=== PATIENT | male | born 2000 | race Caucasian/White ===

== ENCOUNTER 2019-11-28 19:41 | Inpatient (IN) | payer SELFPAY ==
[2019-11-28 20:11] VITALS: BP 149/81; PULSE 103; RESP 20; TEMP 38.9; O2SAT 96; BMI 45.7
[2019-11-28 21:48] LABS: Basophils # 0.1 10^3/uL (0.0-0.1); Basophils % 0.3 %; Eosinophils # 0.1 10^3/uL (0.0-0.8); Eosinophils % 0.6 %; Hematocrit 40.9 % (42.0-52.0); Lymphocytes # 2.9 10^3/uL (1.5-6.5); Mean Corpuscular HGB Conc 31.8 g/dL (30.0-36.0); Mean Corpuscular Hemoglobin 25.7 pg (28.0-34.0); Mean Platelet Volume 11.4 fL (7.4-10.4); Monocytes # 1.4 10^3/uL (0.2-0.9); Monocytes % 7.4 %; Neutrophils # 14.4 10^3/uL (1.8-8.0); Neutrophils % 75.4 %; Nucleated Red Blood Cells % 0 %; Platelet Count 194 10^3/cmm (130-400); Red Blood Count 5.05 10^6/uL (4.1-5.3); Red Cell Distribution Width 14.7 % (12.1-15.1); White Blood Count 19.1 10^3/uL (4.5-13.0)
[2019-11-28 22:03] LABS: Lactic Acid level (Lactate) 1.6 mmol/L (0.5-2.2)
[2019-11-28 22:04] LABS: Alanine Aminotransferase 21 U/L (0-41); Albumin Level 3.7 g/dL (3.5-5.2); Alkaline Phosphatase 101 IU/L (40-130); Anion Gap 19.1 (5-19); Aspartate Amino Transferase 16 U/L (0-40); Blood Urea Nitrogen 9 mg/dL (6-20); Calcium 10.1 mg/dL (8.5-10.5); Carbon Dioxide 25 mmol/L (22-29); Chloride 88 mmol/L (98-107); Globulin 5.5 g/dL (1.3-4.6); Glomerular Filtration Rate 143.8 mL/min (90-130); Glucose 342 mg/dL (65-115); Potassium 4.1 mmol/L (3.5-5.1); Sodium 128 mmol/L (136-145); Total Bilirubin 1.4 mg/dL (0.15-1.2); Total Protein 9.2 g/dL (6.6-8.7)
--- NOTE | 2019-11-28 23:39 | ED_ITS ---
Entered by Whitney Lee, acting as scribe for Dante Rasheed MD Nov 28, 2019 19:41 HPI - General Adult General: Chief complaint: General Medical Stated complaint: neck pain Time Seen by Provider: 11/28/19 23:38 Source: patient Mode of arrival: ambulatory Limitations: no limitations History of Present Illness: HPI narrative: Family states that pt has been ge tting abscesses on the back of his neck. Pt also has had a fever. Pt has abscesses on his neck, bottom and between his groin area. He states the one on his neck is painful and is sharp in nature. He states the pain is a 9 out of 10. He is febrile here of 102. He has no known medical issues. complaint: fever Onset (ago): day(s) Location: neck and buttocks Severity: moderate Quality: sharp Associated symptoms: Deny chest pain, dyspnea, headache(s), nausea, rash or vomiting Review of Systems Const: Reports: fever and chills; Denies: body aches or change in appetite Eyes: Denies: blurry vision or eye discomfort ENMT: Denies: throat pain or dental pain Card: Denies: chest pain Resp: Denies: shortness of breath GI: Denies: abdominal pain, nausea, vomiting or diarrhea : Denies: painful urination Musc: Reports: neck pain; Denies: back pain Skin/Breast: Reports: sores; Denies: rash Neuro: Denies: headache Psych: Denies: depression Isidro/Lymph: Denies: easy bruising All/Imm: Denies: hives PFSH ED PFSH: Statuses (acute, chronic, etc) shown below reflect problem list status as previously entered and may not be historically accurate Social History Smoking and tobacco status: never smoked Physical Exam Const: COMMON NORMALS: no apparent distress, oriented x3 and healthy appearing HENMT: COMMON NORMALS: normocephalic and head/scalp atraumatic HEAD & SCALP: normocephalic and atraumatic Eye: COMMON NORMALS: PERRL and EOMs intact bilaterally PUPIL: Yes PERRL Neck/C-Spine: COMMON NORMALS: full ROM and supple Chest: COMMONS NORMALS: inspection of chest normal and palpation of chest normal Resp: COMMON NORMALS: normal respiratory effort, no retractions, no use of accessory muscles and clear to auscultation bilaterally AUSCULTATION: clear to auscultation bilaterally Cardio: COMMON NORMALS: regular rate, regular rhythm and no murmurs RATE: regular rate RHYTHM: regular rhythm GI: COMMON NORMALS: normal to inspection, nondistended, normoactive bowel soun ds, soft to palpation, non-tender and no masses PALPATION: Yes soft Extremity: COMMON NORMALS: normal to inspection and full ROM Neuro: COMMON NORMALS: oriented x3, moves all extremities and no focal motor deficits Psych: COMMON NORMALS: mental status grossly normal, thought process normal and cooperative THOUGHT PROCESS: normal thought process Skin: COMMON NORMALS: no rashes or lesions noted and no wounds GENERAL SKIN EXAM: no rashes or lesions noted OTHER: no abscesses to groin or perineum. 2cm abscess to right buttocks. 4cm abscess to back of neck with erythema Procedures Abscess I/D Site: neck and other (right buttocks) Local Anesthetic: lidocaine 2% Amount of anesthesia used (mL): 14 Technique: incised with #11 blade Packing used?: iodoform Complications: other (large amount of purulent drainage) Course Vital Signs: Vital signs: Vital Signs Temperature 102.0 F H 11/28/19 20:11 Pulse Rate 103 H 11/28/19 20:11 Respiratory Rate 20 H 11/28/19 20:11 Blood Pressure 149/81 11/28/19 20:11 Pulse Oximetry 96 11/28/19 20:11 MDM - General Adult MDM Narrative: Medical decision making narrative: Patient presents with abscess to the back of his neck along with his right buttocks. Abscess to his neck is quite large and a large amount of purulent drainage. Patient given IV vancomycin here. Patient does have an elevated white count. Patient is hyperglycemic and possibly could be a new onset diabetic. Patient has no follow-up currently and I spoke to hospitalist Dr. Abdi and will admit for observation. Lab Data: Labs: Lab Results 11/28/19 11/28/19 11/28/19 Range/Units 21:30 21:30 21:30 WBC 19.1 H (4.5-13.0) 10^3/ uL RBC 5.05 (4.1-5.3) 10^6/u L Hgb 13.0 (11.7-16.6) g/dL Hct 40.9 L (42.0-52.0) % MCV 81.0 (80-94) fL MCH 25.7 L (28.0-34.0) pg MCHC 31.8 (30.0-36.0) g/dL RDW 14.7 (12.1-15.1) % Plt Count 194 (130-400) 10^3/c mm MPV 11.4 H (7.4-10.4) fL Neut % (Auto) 75.4 % Lymph % (Auto) 15.0 % Dolores % (Auto) 7.4 % Eos % (Auto) 0.6 % Baso % (Auto) 0.3 % Neut # (Auto) 14.4 H (1.8-8.0) 10^3/u L Lymph # (Auto) 2.9 (1.5-6.5) 10^3/u L Dolores # (Auto) 1.4 H (0.2-0.9) 10^3/u L Eos # (Auto) 0.1 (0.0-0.8) 10^3/u L Baso # (Auto) 0.1 (0.0-0.1) 10^3/u L Nucleated RBC % (a uto) 0 % Nucleated RBCs # 0.0 /100WBC Sodium 128 L (136-145) mmol/L Potassium 4.1 (3.5-5.1) mmol/L Chloride 88 L (98-107) mmol/L Carbon Dioxide 25 (22-29) mmol/L Anion Gap 19.1 H (5-19) BUN 9 (6-20) mg/dL Creatinine 0.7 (0.7-1.2) mg/dL GFR Calculation 143.8 H (90-130) mL/min Glucose 342 H (65-115) mg/dL Lactic Acid (Sepsi s) 1.6 (0.5-2.2) mmol/L Calcium 10.1 (8.5-10.5) mg/dL Total Bilirubin 1.4 H (0.15-1.2) mg/dL AST 16 (0-40) U/L ALT 21 (0-41) U/L Alkaline Phosphata se 101 (40-130) IU/L Total Protein 9.2 H (6.6-8.7) g/dL Albumin 3.7 (3.5-5.2) g/dL Globulin 5.5 H (1.3-4.6) g/dL Discharge Plan Discharge Patient Disposition: Placed in Observation Clinical Impression: Abscess, Hyperglycemia Condition: Stable Coding Level of Care Code ED Underliner for Dilma Jaramillo The documentation recorded by the Jesus greenwood Stephanie Lyn, accurately reflects the service I personally performed and the decisions made by Kathya wyatt Korby, MD Nov 28, 2019 19:41
[2019-11-29] VITALS (8 sets, daily range): BP systolic 112–139; BP diastolic 53–78; PULSE 91–124; RESP 18–22; TEMP 36.6–39.5; O2SAT 92–99
[2019-11-29] MEDS: LORazepam 2 mg/mL INJ 1 mL 1 MG IVP (00:07)
[2019-11-29] MEDS: morphine 4 mg/mL SDV 1 mL IVP ×2 (00:08→14:00)
[2019-11-29] MEDS: sodium chloride 0.9% 1,000 ML 999 ML IV (00:09)
[2019-11-29] MEDS: HYDROmorphone 1 mg/mL INJ 1 mL IVP (00:46)
--- NOTE | 2019-11-29 02:18 | PC.NURSE ---
Patient to be admitted obs to room 277-1, report called to Gabriella GONZALEZ.
--- NOTE | 2019-11-29 03:44 | PM.HP ---
Providers/Chief Complaint Admitting Physician: Mary Anne Newberry MD Primary Care Provider: No primary care provider Chief Complaint: neck pain History of Present Illness Oliver Humphreys is a 19 year old male who presented to the emergency room with chief complaint of neck pain. For several days he said pain in his neck and on his backside. He had multiple sores that he popped . He tried to pop them on his neck and his buttock recently but continued to have problems with recurrent fluid accumulation and increasing pain. He is not slept for several days. He was found to have evidence of abscess formation in both places in the emergency room. These were incised and drained in the ED. Packing was placed. He received a dose of vancomycin. As part of the work-up he was identified as having a blood sugar of 342. He has no personal history of diabetes but he does have a family history with his mother having diabetes. He reports increasing thirst, increasing urine output and does actually describe some weight loss. Reports having previously weighed 380 something and was in the 320s here. He has no primary care provider with whom he can follow-up. With multifocal sites of abscess formation and the new onset diabetes he is being admitted for further care and to ensure that we can get arrangements for outpatient care. Review of Systems Const: Reports: change in weight, malaise and other (Not sleeping well); Denies: fever Eyes: Denies: change in vision or blurry vision ENMT: Denies: throat pain Card: Denies: chest pain or palpitations Resp: Denies: shortness of breath, productive cough or non-productive cough GI: Reports: diarrhea (Recently which he attributed to specific food); Denies: abdominal pain, nausea or vomiting : Reports: urinary frequency Musc: Reports: neck pain (Related to sore on his neck) Skin/Breast: Reports: sores (Multiple, including buttock, neck, arms and back) Neuro: Denies: headache, numbness in extremities, weakness in extremities or confusion Psych: Denies: anxiety or depression Endo: Reports: excessive urination and excessive thirst Isidro/Lymph: Denies: easy bruising or easy bleeding Medications/Allergies Home Medications Medication Instructions Recorded Confirmed Last Taken Type No Known Home Medications 11/28/19 11/28/19 Unknown History Allergies Allergy/AdvReac Type Severity Reaction Status Date / Time No Known Allergies Allergy Verified 11/28/19 20:10 PFSH Acute PFSH: Statuses (acute, chronic, etc) shown below reflect problem list status as previously entered and may not be historically accurate Medical History (Updated 11/29/19 @ 04:29 by Mary Anne Newberry MD) Obesity Surgical History (Updated 11/29/19 @ 03:46 by Mary Anne Newberry MD) History of tonsillectomy Family History (Updated 11/29/19 @ 03:45 by Mary Anne Newberry MD) Mother Diabetes Social History (Updated 11/29/19 @ 03:47 by Mary Anne Newberry MD) Smoking and tobacco status: former smoker Alcohol intake: never Substance/Drug Use: never Household members: family Highest education level completed: 11th Grade Vitals/I&O/Wt Last Vital Signs Temp 101.2 F H 11/29/19 02:44 Pulse 112 H 11/29/19 02:44 Resp 20 H 11/29/19 02:44 BP 139/78 11/29/19 02:44 Pulse Ox 95 11/29/19 02:44 Weight last 48 hrs Weight 148.778 kg Physical Exam Const: COMMON NORMALS: oriented x3 NUTRITIONAL APPEARANCE: obese morbidly obese HENMT: COMMON NORMALS: normocephalic MOUTH: other (Dry mucous membranes) Eye: COMMON NORMALS: PERRL and EOMs intact bilaterally Neck/C-Spine: OTHER: Neck range of motion is limited by pain from area where abscess was drained. This is located along the cervical spine in the middle of the neck. Packing is in place. There does not appear to be any extension of erythema from this area. He has somewhat of a webbed neck. Resp: COMMON NORMALS: normal respiratory effort and clear to auscultation bilaterally Cardio: COMMON NORMALS: regular rate, regular rhythm and no murmurs GI: COMMON NORMALS: normal to inspection, nondistended, normoactive bowel sounds, soft to palpation and non-tender : COMMON NORMALS: Yes external exam normal Back/Pelvis: COMMON NORMALS: no CVA tenderness Extremity: COMMON NORMALS: no clubbing, cyanosis or edema Neuro: COMMON NORMALS: moves all extremities and no sensory deficits noted Psych: COMMON NORMALS: cooperative and affect normal Skin: NARRATIVE SKIN EXAM: Packed wound on the back of the neck. Patient has dressing in place over similar appearing wound to the left buttock. There are a few other sores in different stages of healing on the back. Data : 11/28/19 21:30 11/28/19 21:30 Micro: Microbiology 11/28/19 21:30 Blood Culture - Preliminary Blood SPECIMEN COLLECTED 11/28/19 21:30 Blood Culture - Preliminary Blood SPECIMEN COLLECTED Laboratory Tests 11/28/19 21:30 Neut % (Auto) 75.4 Lymph % (Auto) 15.0 Liver Function 11/28/19 Range/Units 21:30 Total Bilirubin 1.4 H (0.15-1.2) mg/dL AST 16 (0-40) U/L ALT 21 (0-41) U/L Alkaline Phosphatase 101 (40-130) IU/L Albumin 3.7 (3.5-5.2) g/dL A&P Assessment and plan (1) New onset type 2 diabetes mellitus: As evidenced by blood sugar greater than 300 and multiple sites of skin infection. I reviewed with patient the importance of starting medication and following medication regimen, learning about consistent carbohydrate diet, exercise and trying to lose some weight as well as the potential risk of not adequately treating diabetes including abnormalities of vision, feeling in the hands and feet, kidney damage, heart disease, strokes, among other medical problems. His mother has diabetes so he is familiar a little bit with it. Status: Acute Code(s): E11.9 - Type 2 diabetes mellitus without complications (2) Furuncle of neck: Status post incision and drainage in the emergency room on 11/29/2019. Currently with iodoform gauze packing. Received vancomycin in the emergency room Status: Acute Code(s): L02.12 - Furuncle of neck (3) Carbuncle and furuncle of buttock: Status post incision and drainage in the emergency room on 11/29/2019. Currently with iodoform gauze packing. Received vancomycin in the emergency room Status: Acute Code(s): L02.33 - Carbuncle of buttock (4) Obesity: Now with new diagnosis of diabetes Status: Acute Qualifiers: Obesity type: due to excess calories Obesity classification: adult class 3 (BMI >= 40) Serious obesity comorbidity presence: with serious comorbidity Body mass index: BMI 45.0-49.9 Qualified Code(s): E66.01 - Morbid (severe) obesity due to excess calories; Z68.42 - Body mass index (BMI) 45.0-49.9, adult Code(s): E66.9 - Obesity, unspecified Additional A&P Information Other diagnoses: Pseudohyponatremia related to hyperglycemia Slight elevation in bilirubin Observation admission for now IV fluids Low-dose insulin Initiate oral metformin Diabetes education Check hemoglobin A1c, lipid panel Consider initiation of low-dose MADAY inhibitor Case management to assist with arranging outpatient follow-up, financially this will be a challenge for him Start oral Bactrim for skin wounds, received a dose of vancomycin in the emergency room Will need clear instructions for wound care management at the time of discharge, reviewed basic wound care with him and that sometimes popping wounds can lead to them becoming worse so he should try to minimize that in the future Transition to oral pain medications Supportive care otherwise Plans discussed with patient and he was given an opportunity to ask questions Full code Attestations Medical Necessity Statement*: Currently anticipated stay less than 2 midnights in a patient with new onset diabetes and 2 areas of abscess formation that required drainage. He needs to be started on some medications, have outpatient follow-up arranged as well as ensure that he is able to get oral medications. Need to monitor areas of abscess formation for ongoing problems. Coding Level of Care Code Acute Nurse Practitioner Hospitalist for [facility] Diagnoses New onset type 2 diabetes mellitus E11.9 Furuncle of neck L02.12 Carbuncle and furuncle of buttock L02.33 Obesity E66.01; Z68.42 Obesity type: due to excess calories Obesity classification: adult class 3 (BMI >= 40) Serious obesity comorbidity presence: with serious comorbidity Body mass index: BMI 45.0-49.9
[2019-11-29 07:09] LABS: Glucose Point of Care 346 mg/dL (70-110)
[2019-11-29 07:44] LABS: Estmated Average Glucose 312; Hemoglobin A1C 12.5 % (4.0-6.0)
[2019-11-29] MEDS: HYDROcodone-acetaminophen 5-325 mg Tablet 1 TAB PO ×3 (07:46→20:32)
[2019-11-29] MEDS: metformin 500 mg Tablet PO (07:47)
[2019-11-29] MEDS: sulfamethoxazole-trimeth DS 160-800 mg Tablet 1 TAB PO (09:06)
[2019-11-29] MEDS: docusate sodium 100 mg Capsule PO ×2 (09:06→18:51)
--- NOTE | 2019-11-29 11:15 | CT_ITS ---
WS: [id number] CT scan of the neck. Additional two-dimensional coronal and sagittal reconstruction was performed. 08/2020 Clinical Data: abscess, sepsis Comparison: None. DLP: 665.[address] scans at [facility] use at least one of these dose optimization techniques: automat ed exposure control; mA and/or kV adjustment per patient size (includes targeted exams where dose is matched to clinical indication); or iterative reconstruction. Findings: There is edema in the posterior neck with several areas of air. This could represent a beginning absc ess. The posterior neck muscles show air in the midline.. No lymphadenopathy is noted. The salivary glands are unremarkable. There is no prevertebral soft tiss ue swelling. The larynx is symmetric. The thyroid gland shows normal enhancement. The floor of the mo uth and parapharyngeal spaces are normal. The oral cavity is unremarkable. The carotid arteries bifurcate normally. The cervical spine is unremarkable. The lung apices show no abnormalities. The portions of the intracranial circulation which are seen demonstrate no abnormaliti es. No erosion of the skull or skull base is seen. CT/CT neck w con* [id number] Impression: 1. Extensive cystic edema in the posterior aspect of the neck along with small areas of air which could represent a beginning abscess. 2. The posterior neck muscles show air in the midline and they may be involved. .
--- NOTE | 2019-11-29 11:15 | CT_ITS ---
WS: [id number] CT scan of the pelvis. Additional two-dimensional coronal and sagittal reconstruction was performed. MIP images were also performed. 11/29/2019 Clinical Data: gluteal abscess, sepsis Comparison: None. DLP: 1257.[address] scans at [facility] use at least one of these dose optimization techniques: automat ed exposure control; mA and/or kV adjustment per patient size (includes targeted exams where dose is matched to clinical indication); or iterative reconstruction. Findings: The soft tissue in the pelvis does not show any abscess. The bladder and prostate are unremarkable. T he sigmoid colon and rectum are normal. A small portion of the gallbladder is seen and there may be g allstones. The sacrum, lower lumbar spine, pelvis and hips are unremarkable. There is increased signa l in the left buttock but only fluid is noted. No abscess is seen. CT/CT pelvis w con* [id number] Impression: 1. Increased signal in left buttock at site of gluteal inflammatory change. 2. Negative for soft tissue abscess. 3. Possible gallstones.
--- NOTE | 2019-11-29 12:00 | P.PN_ITS ---
Subjective Subjective: Interval history: He is asleep in bed during my visit. He is somnolent on waking up. It takes him a while to come to. His mother is at bedside. He is still in pain at the site of neck and buttock abscesses. Generally not feeling well. Vitals/I&O/Wt Last Vital Signs Temp 97.8 F 11/29/19 11:26 Pulse 103 H 11/29/19 11:26 Resp 20 H 11/29/19 11:26 BP 131/77 11/29/19 11:26 Pulse Ox 96 11/29/19 11:26 11/28/19 11/29/19 11/29/19 22:59 06:59 14:59 Intake Total 100 / 100 240 / 240 Balance 100 / 100 240 / 240 Weight last 48 hrs Weight 148.778 kg Physical Exam Const: COMMON NORMALS: oriented x3 NUTRITIONAL APPEARANCE: obese morbidly obese OTHER: Mild to moderate discomfort with moving from general body ache, neck pain. HENMT: COMMON NORMALS: oropharynx normal Neck/C-Spine: OTHER: Difficult to assess for JVD due to body habitus. Posterior neck abscess covered by dressing, small mount of serosanguineous drainage seeped through, currently dry, with surrounding swelling, with tenderness on palpation. Resp: COMMON NORMALS: normal respiratory effort and clear to auscultation bilaterally AUSCULTATION: clear to auscultation bilaterally Cardio: COMMON NORMALS: regular rhythm, S1 normal heart sound, S2 normal heart sound and no murmurs RHYTHM: regular rhythm HEART SOUNDS: S1 normal and S2 normal GI: COMMON NORMALS: normal to inspection, nondistended, normoactive bowel sounds, soft to palpation and non-tender PALPATION: Yes soft Back/Pelvis: OTHER: Left posterior gluteal abscess status post I&D, packing covered by dressing, without fluctuance on palpation, however, with surrounding edema Scars from prior healed pustules. Extremity: COMMON NORMALS: no joint enlargement and no pedal edema Neuro: COMMON NORMALS: oriented x3 and moves all extremities Skin: COMMON NORMALS: no rashes or lesions noted GENERAL SKIN EXAM: no rashes or lesions noted Data : 11/28/19 21:30 11/28/19 21:30 Micro: Microbiology 11/28/19 21:30 Blood Culture - Preliminary Blood SPECIMEN COLLECTED 11/28/19 21:30 Blood Culture - Preliminary Blood SPECIMEN COLLECTED A&P Assessment and plan (1) Sepsis: Sepsis secondary to abscess of neck and left gluteus in the setting of new diagnosis of diabetes with WBC count 19.1, persistent sinus tachycardia currently 103. Malaise. Posterior neck is very tender after I&D, with surrounding swelling, erythema. There is tenderness, swelling surrounding I&D site of gluteal abscess as well. We will request for additional imaging with CT to rule out deeper abscesses. At this time switch to IV antibiotic for now with vancomycin. Request wound Gram stain and culture. Status: Acute Code(s): A41.9 - Sepsis, unspecified organism (2) Furuncle of neck: Status post incision and drainage in the emergency room on 11/29/2019. Currently with iodoform gauze packing. Status: Acute Code(s): L02.12 - Furuncle of neck (3) Carbuncle and furuncle of buttock: Status post incision and drainage in the emergency room on 11/29/2019. Currently with iodoform gauze packing. Status: Acute Code(s): L02.33 - Carbuncle of buttock (4) New onset type 2 diabetes mellitus: A1c 12.5. Discussed with him and his mother bedside we will start him on insulin, metformin, requested that he measure blood sugars 3 times daily at least and record values to bring to his primary care appointment. Due to financial issues discussed with them likely will go with 70/30 premixed insulin twice a day. This may be an easier regimen for him as well to start with. His mother has diabetes, so has experienced as well. Requested he receive education while he is here on glucose measurements and insulin administration. Discussed consistent carbohydrate diet. Discussed target A1c of 8. Highly encouraged to follow-up with primary care provider for optimization of control. Discussed risk of short-term and long-term complications of diabetes. Asked him for teach back. We had to discuss several things several times, however, he was able to teach back afterward. Status: Acute Code(s): E11.9 - Type 2 diabetes mellitus without complications (5) Obesity: Morbid obesity. Will need to follow-up with primary care regarding weight loss options. Status: Acute Qualifiers: Obesity type: due to excess calories Obesity classification: adult class 3 (BMI >= 40) Serious obesity comorbidity presence: with serious comorbidity Body mass index: BMI 45.0-49.9 Qualified Code(s): E66.01 - Morbid (severe) obesity due to excess calories; Z68.42 - Body mass index (BMI) 45.0- 49.9, adult Code(s): E66.9 - Obesity, unspecified Additional A&P Information Other diagnoses: Pseudohyponatremia related to hyperglycemia Slight elevation in bilirubin Attestations Medical Necessity Statement*: Admission of over 2 midnights is needed for assessment management of sepsis, skin abscesses with new diagnosis of diabetes. Coding Level of Care Code Acute Channel Sales Manager for [facility] Diagnoses Sepsis A41.9 Furuncle of neck L02.12 Carbuncle and furuncle of buttock L02.33 New onset type 2 diabetes mellitus E11.9 Obesity E66.01; Z68.42 Obesity type: due to excess calories Obesity classification: adult class 3 (BMI >= 40) Serious obesity comorbidity presence: with serious comorbidity Body mass index: BMI 45.0-49.9
[2019-11-29 12:03] LABS: Glucose Point of Care 400 mg/dL (70-110)
[2019-11-29] MEDS: morphine 4 mg/mL SDV 1 mL 2 MG IVP (14:17)
[2019-11-29] MEDS: iohexol 300 mg/mL 100 mL Btl IV ×2 (14:20→14:22)
--- NOTE | 2019-11-29 14:22 | PC.NURSE ---
Patient down to CT. Nurse followed for prophylactic pain medication administration. Pt able to perform procedure well.
--- NOTE | 2019-11-29 15:50 | P.CONIM_ITS ---
Providers/Reason For Consult Consulting Physican/Specialty*: Roman Valadez MD Reason for Consult*: Soft Tissue infection Requesting Physcian: Dr An Attending Physician: Willie An History of Present Illness History of Present Illness Chief complaint ; My neck hurts HPI ; Oliver Humphreys is a 19 year old male presents with worsening inflammatory process of the back of his neck for the past 6 days or so, came to the emergency department yesterday and undergone an incision and drainage of Nape abscess, and was placed on IV antibiotics per hospitalist service, according to the hospitalist taking care of the patient that patient had element of tachycardia and a WBC count of 19,000 plan and consequently a CT scan of the neck was obtained did not show an abscess formation yet because the patient is not improving clinically the hospitalist service elected to consult general surgery for further evaluation and potential management. Most of the history is being obtained from mom and she describes that her son recently diagnosed with diabetes and he had some sort of elevated lead levels when he was a child, and he keeps on getting recurrent soft tissue infections and boils particularly at the neck area and the buttocks. Review of Systems Const: Reports: malaise; Denies: fever, chills or body aches ENMT: Reports: other (Neck pain particularly at the posterior aspect) Card: Denies: chest pain Resp: Denies: shortness of breath GI: Denies: abdominal pain, nausea, vomiting, difficulty swallowing, diarrhea, constipation or blood in stool Neuro: Denies: headache Psych: Denies: anxiety or depression Meds/Allergies Home Medications and Allergies Home Medications Medication Instructions Recorded Confirmed Type No Known Home Medications 11/28/19 11/28/19 History Allergies Allergy/AdvReac Type Severity Reaction Status Date / Time No Known Allergies Allergy Verified 11/29/19 16:48 Current Medications Current Medications Generic Name Dose Route Start Last Admin Trade Name Freq PRN Reason Stop Dose Admin Hydrocodone Bitart/Acetaminophen 1 tab 11/29/19 03:54 11/29/19 12:35 Leonard 5-325 Mg PO 1 tab Q4H PRN Administration MODERATE TO SEVERE PAIN Docusate Sodium 100 mg 11/29/19 09:00 11/29/19 09:06 Colace PO 100 mg BID STEPHANIE Administration Vancomycin HCl 2,000 mg/ 500 mls @ 250 mls/hr 11/29/19 12:00 11/29/19 14:55 Sodium Chloride IV 250 mls/hr Q8H STEPHANIE Infusion Protocol Insulin Aspart 0 unit 11/29/19 08:00 11/29/19 12:30 Novolog SUBCUT 12 unit TIDWM STEPHANIE Administration Protocol Metformin HCl 500 mg 11/29/19 08:00 11/29/19 07:47 Glucophage PO 500 mg BREAKFAST STEPHANIE Administration Morphine Sulfate 2 mg 11/29/19 03:54 11/29/19 14:17 Morphine IVP 2 mg Q4H PRN Administration SEVERE PAIN Trimethoprim/Sulfamethoxazole 1 tab 11/29/19 09:00 11/29/19 09:06 Bactrim Ds PO 1 tab BID STEPHANIE Administration Protocol PFSH Acute PFSH: Statuses (acute, chronic, etc) shown below reflect problem list status as previously entered and may not be historically accurate Medical History Obesity (Acute) Surgical History History of tonsillectomy (Acute) Family History Mother Diabetes Social History Smoking and tobacco status: former smoker Alcohol intake: never Substance/Drug Use: never Household members: family Highest education level completed: 11th Grade Vitals/I&O/Wt Last Vital Signs Temp 97.8 F 11/29/19 11:26 Pulse 103 H 11/29/19 11:26 Resp 18 11/29/19 14:17 BP 131/77 11/29/19 11:26 Pulse Ox 99 11/29/19 14:00 11/29/19 11/29/19 11/29/19 06:59 14:59 22:59 Intake Total 100 / 100 739.167 / 739.167 Balance 100 / 100 739.167 / 739.167 Weight last 48 hrs Weight 328 lb Physical Exam Const: EXAM LIMITATIONS: behavioral limitations GENERAL APPEARANCE: cooperative NUTRITIONAL APPEARANCE: obese morbidly obese ORIENTATION/CONSCIOUSNESS: Yes awake, Yes oriented to person and Yes oriented to place HENMT: COMMON NORMALS: normocephalic HEAD & SCALP: normocephalic Eye: COMMON NORMALS: PERRL and no scleral icterus PUPIL: Yes PERRL Neck/C-Spine: NECK IMAGES: 1. Soft tissue infection and induration of the posterior aspect of the neck with central incision status post I&D, cellulitic changes are appreciated in the range of about 10 x 5 cm being tender to touch. Lymph: LYMPHATIC: no lymphadenopathy noted Chest: COMMONS NORMALS: inspection of chest normal Resp: COMMON NORMALS: normal respiratory effort and clear to auscultation bilaterally AUSCULTATION: clear to auscultation bilaterally Cardio: COMMON NORMALS: S1 normal heart sound and S2 normal heart sound; negative for no murmurs HEART SOUNDS: S1 normal and S2 normal GI: COMMON NORMALS: soft to palpation; negative for no hepatosplenomegaly INSPECTION: Yes normal to inspection PALPATION: Yes soft, No firm, No tender, No guarding, No rigid and No no hepatosplenomegaly Neuro: SENSORIUM/ORIENTATION: Yes oriented to person and Yes oriented to place Data Micro: Micro: Microbiology 11/29/19 00:42 Gram Stain - Final Neck 11/28/19 21:30 Blood Culture - Pr eliminary Blood SPECIMEN COLLE DEEPIKA 11/28/19 21:30 Blood Culture - Pr eliminary Blood SPECIMEN [facility] A&P Assessment and plan (1) Carbuncle and furuncle of neck: After thorough history physical examination and reviewing the chart and images with my personal interpretation, I do believe that the patient will benefit from wound exploration and potential I&D of the soft tissue infection located at the posterior aspect of the neck, likely carbuncle, that will end up by excising necrotic tissues that would leave behind a bigger wound cavity as I did explain for the patient and his mother particularly the patient has diabetes and it will be harder to control his hyperglycemia in the presence of soft tissue infection. Patient already ate today and will plan to take the patient for surgery tomorrow if parents agree to proceed,will recommand to keep th epatient NPO after midnight. I did explain in depth and in length about the potential indications, risks, benefits and alternatives understanding the longevity of potential local wound care after surgery and may require future surgeries and procedures. The discussion did happen in the presence of charge nurse Afia and the patient's nurse Pam Mom elected to think about it and discuss it further with her before they proceed Thank you for consulting general surgery to participate taking care Status: Acute Code(s): L02.12 - Furuncle of neck; L02.13 - Carbuncle of neck Consult Attestations Medical Necessity Statement: Medical necessity care is expected to cross 2 midnights Time Spent in Patient Care: 16 - 35 minutes (>than 50% of time spent in counselling and/or direct pt care on unit) . Coding Level of Care Code Acute Program Instructor for Reed[employer] Fwd Exam Problem Focused Diagnoses Carbuncle and furuncle of neck L02.12; L02.13
[2019-11-29 17:24] LABS: Glucose Point of Care 343 mg/dL (70-110)
[2019-11-29] MEDS: insulin aspart 70/30 100 units/1 mL 10 UNIT SUBCUT (18:51)
[2019-11-29 21:18] LABS: Glucose Point of Care 338 mg/dL (70-110)
[2019-11-30] VITALS (19 sets, daily range): BP systolic 113–147; BP diastolic 65–82; PULSE 91–110; RESP 14–22; TEMP 36.2–39.4; O2SAT 92–100
[2019-11-30] MEDS: HYDROcodone-acetaminophen 5-325 mg Tablet 1 TAB PO (02:10)
[2019-11-30 05:39] LABS: Basophils # 0.1 10^3/uL (0.0-0.1); Basophils % 0.4 %; Eosinophils # 0.2 10^3/uL (0.0-0.8); Eosinophils % 1.4 %; Hematocrit 35.5 % (42.0-52.0); Hemoglobin 11.3 g/dL (11.7-16.6); Lymphocytes # 2.7 10^3/uL (1.5-6.5); Lymphocytes % 16.4 %; Mean Corpuscular HGB Conc 31.8 g/dL (30.0-36.0); Mean Corpuscular Hemoglobin 24.8 pg (28.0-34.0); Mean Platelet Volume 11.9 fL (7.4-10.4); Monocytes # 1.2 10^3/uL (0.2-0.9); Monocytes % 7.5 %; Neutrophils # 11.8 10^3/uL (1.8-8.0); Neutrophils % 72.9 %; Nucleated Red Blood Cells % 0 %; Platelet Count 172 10^3/cmm (130-400); Red Blood Count 4.55 10^6/uL (4.1-5.3); Red Cell Distribution Width 14.6 % (12.1-15.1); White Blood Count 16.2 10^3/uL (4.5-13.0)
--- NOTE | 2019-11-30 05:56 | P.PN_ITS ---
Subjective Subjective: Interval history: Not much history is being obtained from the patient but he continues to hurt at the neck particularly the posterior part Vitals/I&O/Wt Last Vital Signs Temp 99.2 F 11/30/19 04:00 Pulse 100 11/30/19 04:00 Resp 20 H 11/30/19 04:00 BP 131/73 11/30/19 04:00 Pulse Ox 96 11/30/19 04:00 11/29/19 11/29/19 11/30/19 14:59 22:59 06:59 Intake Total 739.167 / 739.167 650.833 / 1390.000 Output Total 650 / 650 Balance 739.167 / 739.167 650.833 / 1390.000 -650 / 740.000 Weight last 48 hrs Weight 328 lb Physical Exam Const: EXAM LIMITATIONS: physical limitations GENERAL APPEARANCE: cooperative and anxious NUTRITIONAL APPEARANCE: obese morbidly obese Neck/C-Spine: NECK IMAGES: 1. Area at the nape of the neck continues to be tender but less cellulitis is appreciated yet the center of the lesion having purulent discharge Resp: COMMON NORMALS: normal respiratory effort Data : 11/30/19 05:15 11/30/19 05:15 Micro: Microbiology 11/28/19 21:30 Blood Culture - Preliminary Blood NEGATIVE TO DATE 11/28/19 21:30 Blood Culture - Preliminary Blood NEGATIVE TO DATE 11/29/19 00:42 Gram Stain - Final Neck A&P Assessment and plan (1) Carbuncle and furuncle of neck: Am Rounds: From surgical standpoint of view my recommendation is to perform surgical intervention to explore the wound and perform my incision and drainge. Mom is still reluctant to proceed LSIA Arcos was present during the encounter 9:52 AM Through the day mom decided to proceed with surgery Informed consent per chart Thank you for consulting general surgery to participate taking care Status: Acute Code(s): L02.12 - Furuncle of neck; L02.13 - Carbuncle of neck Attestations Medical Necessity Statement*: Per hospitalist service Time Spent in Patient Care: 16 - 35 minutes (>than 50% of time spent in counselling and/or direct pt care on unit) . Coding Level of Care Code Acute Top Lift Compressor for [facility] Fwd Exam Problem Focused Diagnoses Carbuncle and furuncle of neck L02.12; L02.13
[2019-11-30 06:22] LABS: Alanine Aminotransferase 14 U/L (0-41); Albumin Level 3.3 g/dL (3.5-5.2); Alkaline Phosphatase 115 IU/L (40-130); Anion Gap 17.1 (5-19); Aspartate Amino Transferase 20 U/L (0-40); Blood Urea Nitrogen 9 mg/dL (6-20); Calcium 9.5 mg/dL (8.5-10.5); Carbon Dioxide 24 mmol/L (22-29); Chloride 91 mmol/L (98-107); Cholesterol 108 mg/dL (0-200); Globulin 4.8 g/dL (1.3-4.6); Glomerular Filtration Rate 143.8 mL/min (90-130); Glucose 328 mg/dL (65-115); HDL Cholesterol 20 mg/dL (60-100); LDL Cholesterol Calculated 66 mg/dL (50-129); Potassium 4.1 mmol/L (3.5-5.1); Sodium 128 mmol/L (136-145); Total Bilirubin 0.9 mg/dL (0.15-1.2); Total Protein 8.1 g/dL (6.6-8.7); Triglycerides 112 mg/dL (0-150)
[2019-11-30 07:21] LABS: Glucose Point of Care 335 mg/dL (70-110)
[2019-11-30] MEDS: docusate sodium 100 mg Capsule PO ×2 (09:10→18:08)
[2019-11-30] MEDS: insulin aspart 70/30 100 units/1 mL 10 UNIT SUBCUT ×2 (09:10→18:08)
[2019-11-30] MEDS: metformin 500 mg Tablet PO (09:10)
--- NOTE | 2019-11-30 10:47 | ANES.PREANE2 ---
Pre-Anesthetic Assessment Pre-Anesthetic Assessment: Height/Weight: Height 1.8 m Weight 148.778 kg Temp Pulse Resp BP Pulse Ox 99.3 F 96 18 118/72 92 11/30/19 07:54 11/30/19 07:54 11/30/19 07:54 11/30/19 07:54 11/30/19 07:54 Preop Diagnosis: Posterior Neck Abscess Proposed Procedure: Operation Date: 11/30/19 11:40 Proposed Procedures p Incision and Drainage of Posterior Neck Abscess(Not Applicable) - Roman Valadez MD Last intake: Intake Last Liquid Date 12/01/19 Last Liquid Time 21:00 Last Solid Date 11/29/19 Last Solid Time 21:00 Social: Comment: cigars Exam: Pre-Anes Outpt Exam: alert, oriented x 3, clear to auscultation bilaterally and regular rate & rhythm Airway: Submandibular: Other Cervical ROM: Other MP: 4 Anesthetic Plan: ASA status: 3E Anesthesia: General Meds/Allergies Current Medications: Current Medications Generic Name Dose Route Start Last Admin Trade Name Freq PRN Reason Stop Dose Admin Hydrocodone Bitart /Acetaminophen 1 tab 11/29/19 03:54 11/30/19 02:10 [place]an 5-325 Mg PO 1 tab Q4H PRN Administration MODERATE TO SEVER E PAIN Docusate Sodium 100 mg 11/29/19 09:00 11/30/19 09:10 Colace PO 100 mg BID STEPHANIE Administration Vancomycin HCl 2,0 00 mg/ 500 mls @ 250 mls /hr 11/29/19 12:00 11/30/19 05:53 Sodium Chloride IV 250 mls/hr Q8H STEPHANIE Administration Protocol Insulin Aspart 0 unit 11/29/19 21:00 11/29/19 21:43 Novolog SUBCUT 5 unit BEDTIME STEPHANIE Administration Protocol Insulin Aspart 0 unit 11/29/19 08:00 11/30/19 09:09 Novolog SUBCUT 10 unit TIDWM STEPHANIE Administration Protocol Insulin Aspart 10 unit 11/29/19 18:00 11/30/19 09:10 Novolog 70/30 SUBCUT 10 unit BIDWM STEPHANIE Administration Metformin HCl 500 mg 11/29/19 08:00 11/30/19 09:10 Glucophage PO 500 mg BREAKFAST STEPHANIE Administration Morphine Sulfate 2 mg 11/29/19 03:54 11/29/19 14:17 Morphine IVP 2 mg Q4H PRN Administration SEVERE PAIN Trimethoprim/Sulfa methoxazole 1 tab 11/29/19 09:00 11/29/19 09:06 Bactrim Ds PO 1 tab BID STEPHANIE Administration Protocol PFSH Anesthesia PFSH: Medical History Obesity (Acute) Surgical History History of tonsillectomy (Acute) Family History Mother Diabetes Social History Smoking and tobacco status: former smoker Alcohol intake: never Substance/Drug Use: never Household members: family Highest education level completed: 11th Grade Data Anesthesia CBC & Chem 7: 11/30/19 05:15 11/30/19 05:15 Other Labs: Laboratory Results - last 48 hr 11/28/19 11/28/19 11/28/19 21:30 21:30 21:30 WBC 19.1 H RBC 5.05 Hgb 13.0 Hct 40.9 L MCV 81.0 MCH 25.7 L MCHC 31.8 RDW 14.7 Plt Count 194 MPV 11.4 H Neut % (Auto) 75.4 Lymph % (Auto) 15.0 [place] % (Auto) 7.4 Eos % (Auto) 0.6 Baso % (Auto) 0.3 Neut # (Auto) 14.4 H Lymph # (Auto) 2.9 [place] # (Auto) 1.4 H Eos # (Auto) 0.1 Baso # (Auto) 0.1 Nucleated RBC % (auto) 0 Nucleated RBCs # 0.0 Sodium 128 L Potassium 4.1 Chloride 88 L Carbon Dioxide 25 Anion Gap 19.1 H BUN 9 Creatinine 0.7 GFR Calculation 143.8 H Glucose 342 H POC Glucose Estimat Average Glucose Hemoglobin A1c Lactic Acid (Sepsis) 1.6 Calcium 10.1 Total Bilirubin 1.4 H AST 16 ALT 21 Alkaline Phosphatase 101 Total Protein 9.2 H Albumin 3.7 Globulin 5.5 H Triglycerides Cholesterol LDL Cholesterol, Calc HDL Cholesterol LDL/HDL Ratio Cholesterol/HDL Ratio 11/29/19 11/29/19 11/29/19 06:39 07:04 12:00 WBC RBC Hgb Hct MCV MCH MCHC RDW Plt Count MPV Neut % (Auto) Lymph % (Auto) [place] % (Auto) Eos % (Auto) Baso % (Auto) Neut # (Auto) Lymph # (Auto) [place] # (Auto) Eos # (Auto) Baso # (Auto) Nucleated RBC % (auto) Nucleated RBCs # Sodium Potassium Chloride Carbon Dioxide Anion Gap BUN Creatinine GFR Calculation Glucose POC Glucose 346 400 Estimat Average Glucose 312 Hemoglobin A1c 12.5 H Lactic Acid (Sepsis) Calcium Total Bilirubin AST ALT Alkaline Phosphatase Total Protein Albumin Globulin Triglycerides Cholesterol LDL Cholesterol, Calc HDL Cholesterol LDL/HDL Ratio Cholesterol/HDL Ratio 11/29/19 11/29/19 11/30/19 17:19 21:08 05:15 WBC 16.2 H RBC 4.55 Hgb 11.3 L Hct 35.5 L MCV 78.0 L MCH 24.8 L MCHC 31.8 RDW 14.6 Plt Count 172 MPV 11.9 H Neut % (Auto) 72.9 Lymph % (Auto) 16.4 [place] % (Auto) 7.5 Eos % (Auto) 1.4 Baso % (Auto) 0.4 Neut # (Auto) 11.8 H Lymph # (Auto) 2.7 [place] # (Auto) 1.2 H Eos # (Auto) 0.2 Baso # (Auto) 0.1 Nucleated RBC % (auto) 0 Nucleated RBCs # 0.0 Sodium Potassium Chloride Carbon Dioxide Anion Gap BUN Creatinine GFR Calculation Glucose POC Glucose 343 338 Estimat Average Glucose Hemoglobin A1c Lactic Acid (Sepsis) Calcium Total Bilirubin AST ALT Alkaline Phosphatase Total Protein Albumin Globulin Triglycerides Cholesterol LDL Cholesterol, Calc HDL Cholesterol LDL/HDL Ratio Cholesterol/HDL Ratio 11/30/19 11/30/19 05:15 06:21 WBC RBC Hgb Hct MCV MCH MCHC RDW Plt Count MPV Neut % (Auto) Lymph % (Auto) [place] % (Auto) Eos % (Auto) Baso % (Auto) Neut # (Auto) Lymph # (Auto) [place] # (Auto) Eos # (Auto) Baso # (Auto) Nucleated RBC % (auto) Nucleated RBCs # Sodium 128 L Potassium 4.1 Chloride 91 L Carbon Dioxide 24 Anion Gap 17.1 BUN 9 Creatinine 0.7 GFR Calculation 143.8 H Glucose 328 H POC Glucose 335 Estimat Average Glucose Hemoglobin A1c Lactic Acid (Sepsis) Calcium 9.5 Total Bilirubin 0.9 AST 20 ALT 14 Alkaline Phosphatase 115 Total Protein 8.1 Albumin 3.3 L Globulin 4.8 H Triglycerides 112 Cholesterol 108 LDL Cholesterol, Calc 66 HDL Cholesterol 20 L LDL/HDL Ratio 3.30 H Cholesterol/HDL Ratio 5.40 H Micro: Microbiology 11/29/19 00:42 Gram Stain - Final Neck 11/28/19 21:30 Blood Culture - Preliminary Blood NEGATIVE TO DATE 11/28/19 21:30 Blood Culture - Preliminary Blood NEGATIVE TO DATE Cardiac Studies: No Data to Display
[2019-11-30] MEDS: sodium chloride 0.9% 1,000 ML 30 ML IV (11:01)
--- NOTE | 2019-11-30 11:35 | PC.CHAP ---
Pastoral Care Encounter/Spiritual Assessment Type of Contact [] Declined director geothermal operations visit [] Patient/Family/Request visit [] Outpatient visit [] Follow-up visit [] Physician referral [] Code/Alert [x] Routine visit [] Staff referral [] Actively dying [] Patient sleeping [] Family support [] [] Out of room [] Palliative care [] [] Receiving care in room [] Pre-surgical visit [] Trauma [] Long length of stay [] ICU visit [] Other: Relational/Emotional Strength [] Patient feels connected with others/family/visitors/staff [] Distress [] Loneliness/isolation [] Abandonment Spirituality of Patient [x] Person of Jacey [x] Attends Jew of their Jacey [x] Believes in Prayer [] Reads Bible or Confucianist materials [] There are Spiritual issues to be addressed Cable Splicer Apprentice Interventions [x] Prayer [x] Active listening [x] Non-anxious presence [] Spiritual/emotional support [] Crisis/trauma care [] Spiritual counseling [] Bereavement support [] Provided bereavement packet [] Provided Bible/devotional materials [] Provided toy/stuffed animal, coloring book to patient or family member [] Provided Communion [] Anointing/[place] [] Salvation [x] Completed spiritual assessment [] Other: Impact on Illness or Injury [] Angry [] Fearful [] Anxious [] Often cries [] Exhaustion [] Unable to work [] Unable to attend shinto [] Unable to walk/stand [] Unable to read [] Unable to drive [] Unable to eat/drink [] Unable to sleep [] Unable to be with family [] Patient intubated [] Other: Summary patient nvery quite Time spent with patient 4 [id number] min
[2019-11-30] MEDS: lidocaine 2% INJ 20 mL INJECTION (11:45)
--- NOTE | 2019-11-30 11:52 | P.OP_ITS ---
Operative Report Date of procedure: November 30, 2019 Pre-op Diagnosis: Posterior Neck Abscess Post-op diagnosis: same Post-op Diagnosis: Large abscess of the nape of the neck Post I&D measurements 9 x 2 x [address] to the fascia of the trapezius muscle 50 mL of purulent discharge Procedure Done: Incision and drainage of neck abscess Sharp debridement of the abscess cavity all the way to the muscle layer Placement of large piece of the Surgicel at the abscess cavity Specimens removed/disposition: Swabs for cultures Tissues for culture Surgeon: Roman Valadez Ski Binding Fitter And Repairer: coroner transport technician Maria Del Carmen Medical student Anjum Brannon Anesthesia: General (BINDU Zabala/Dr. Hylton) Estimated blood loss (mL): 15 Complications: No immediate complications Condition: stable Disposition: floor Brief History: Oliver Humphreys is a 19 year old male presents with worsening inflammatory process of the back of his neck for the past 6 days or so, came to the emergency department yesterday and undergone an incision and drainage of Nape abscess, and was placed on IV antibiotics per hospitalist service, according to the hospitalist taking care of the patient that patient had element of tachycardia and a WBC count of 19,000 plan and consequently a CT scan of the neck was obtained did not show an abscess formation yet because the patient is not improving clinically the hospitalist service elected to consult general surgery for further evaluation and potential management. Most of the history is being obtained from mom and she describes that her son recently diagnosed with diabetes and he had some sort of elevated lead levels when he was a child, and he keeps on getting recurrent soft tissue infections and boils particularly at the neck area and the buttocks. After history taking physical examination and reviewing the chart and images with my personal interpretation, I counseled the patient and his mom for incision and drainage of his Nape abscess, where indications risks benefits alternatives all discussed with the patient and his mom and both agreed to proceed. Procedure: After identifying the patient holding area, the Back of the Neck Abscess was marked before the procedure by myself, patient was then taken to the operative suite, was placed in supine position, intubated by anesthesia, patient was already on therapeutic antibiotics, patient was then placed in left lateral position, axillary padding was obtained. Time-out was done verifying the patient's name/date of /planned procedure and destination after the procedure, all were in agreement After palpation of the posterior Neck abscess, I did add transverse incision on top of the most fluctuant area bilateral to the already existing central incision, after the stab incision was created at [facility] of about 50 mL of pus were revealed, cultures were obtained for aerobes and anaerobes, incision was extended, all loculations were broken down by the examining finger, tissues were obtained for culture from different martinez of the abscess cavity. Debridement of the abscess cavity was obtained,Sharp debridement was done all the way to the muscle layer -Measurements after I&D ; 9 x 2 x [address] to the fascial layer of the trapezius muscle Thorough irrigation with warm saline was done form of pulse a vac, followed by appropriate hemostasis, a large piece of Surgicel was placed followed by Kerlix impregnated with lidocaine 2% was used to pack the abscess cavity. Dry dressing was then applied in the form of ABDs, followed by tape Patient tolerated the procedure well, count of instruments, needle and sponges were completed at the end of the procedure. And then patient was taken to the recovery area in stable condition after being extubated. I Was present for the whole entire procedure
--- NOTE | 2019-11-30 12:30 | SUR.PHASEI ---
1230 BG 255
[2019-11-30 12:33] LABS: Glucose Point of Care 255 mg/dL (70-110)
[2019-11-30 14:50] LABS: Vancomycin Trough 8.6 ug/mL (10-15)
--- NOTE | 2019-11-30 16:05 | PM.PN ---
Subjective Subjective: Interval history: s/p I&D of neck abscess today. preliminary gram stain with GPC clusters today. From yesterday with staph aureus, pending susceptibility Medications: Reviewed: Yes Vitals/I&O/Wt Last Vital Signs Temp 99.9 F H 11/30/19 15:53 Pulse 95 11/30/19 15:53 Resp 18 11/30/19 15:53 BP 121/71 11/30/19 15:53 Pulse Ox 95 11/30/19 15:53 11/30/19 11/30/19 11/30/19 06:59 14:59 22:59 Intake Total 0 / 0 Output Total 650 / 650 50 / 50 Balance -650 / 740.000 -50 / -50 Weight last 48 hrs Weight 148.778 kg Physical Exam Narrative: EXAM NARRATIVE: GEN: Awake, alert and oriented, no acute distress HEENT: surgical dressing in place, not opened for exam at this time CVS: S1S2 N RS: CTA B/L Abd: Soft, nt/nd , bs+ STYRENE DEHYDRATION REACTOR OPERATOR: no focal neuro deficits Data : 12/01/19 04:20 12/01/19 04:20 Micro: Microbiology 11/30/19 11:28 Gram Stain - Final Neck 11/29/19 00:42 Gram Stain - Final Neck Wound Culture - Preliminary Staphylococcus aureus 11/28/19 21:30 Blood Culture - Preliminary Blood NEGATIVE TO DATE 11/28/19 21:30 Blood Culture - Preliminary Blood NEGATIVE TO DATE A&P Assessment and plan (1) Sepsis: Status: Acute Code(s): A41.9 - Sepsis, unspecified organism (2) Furuncle of neck: Status post incision and drainage in the OR today cx with staph aureus, pending susceptibility continue empiric vancomycin d/c bactrim as no added advantage over iv vancomycin Status: Acute Code(s): L02.12 - Furuncle of neck (3) Carbuncle and furuncle of buttock: Status post incision and drainage continue vancomycin Status: Acute Code(s): L02.33 - Carbuncle of buttock (4) New onset type 2 diabetes mellitus: A1c 12.5. currently on 70/30 insulin. Will switch over to aggressive sliding scale for now with insulin aspart, estimate 24 hr requirements and set up with levemir + novolog pens which may be easiest. outpatient PCP f/up being established Status: Acute Code(s): E11.9 - Type 2 diabetes mellitus without complications (5) Obesity: Morbid obesity. Will need to follow-up with primary care regarding weight loss options. Status: Acute Qualifiers: Body mass index: BMI 45.0-49.9 Obesity classification: adult class 3 (BMI >= 40) Obesity type: due to excess calories Serious obesity comorbidity presence: with serious comorbidity Qualified Code(s): E66.01 - Morbid (severe) obesity due to excess calories; Z68.42 - Body mass index (BMI) 45.0-49.9, adult Code(s): E66.9 - Obesity, unspecified Additional A&P Information Other diagnoses: Pseudohyponatremia related to hyperglycemia Slight elevation in bilirubin Attestations Medical Necessity Statement*: needf for iv abx Coding Level of Care Code Acute Pony Trimmer for g Fwd Diagnoses Sepsis A41.9 Furuncle of neck L02.12 Carbuncle and furuncle of buttock L02.33 New onset type 2 diabetes mellitus E11.9 Obesity E66.01; Z68.42 Body mass index: BMI 45.0-49.9 Obesity classification: adult class 3 (BMI >= 40) Obesity type: due to excess calories Serious obesity comorbidity presence: with serious comorbidity
[2019-11-30 17:56] LABS: Glucose Point of Care 306 mg/dL (70-110)
[2019-11-30 21:23] LABS: Glucose Point of Care 309 mg/dL (70-110)
[2019-12-01] VITALS: BP 112/68; PULSE 89; RESP 20; TEMP 37.2; O2SAT 92
[2019-12-01 04:00] VITALS: BP 111/67; PULSE 89; RESP 18; TEMP 37; O2SAT 91
[2019-12-01 04:44] LABS: Basophils % 0.3 %; Eosinophils # 0.3 10^3/uL (0.0-0.8); Eosinophils % 2.4 %; Hemoglobin 10.4 g/dL (11.7-16.6); Lymphocytes # 2.5 10^3/uL (1.5-6.5); Lymphocytes % 21.3 %; Mean Corpuscular HGB Conc 31.5 g/dL (30.0-36.0); Mean Corpuscular Hemoglobin 24.7 pg (28.0-34.0); Mean Corpuscular Volume 78.4 fL (80-94); Mean Platelet Volume 11.9 fL (7.4-10.4); Monocytes # 0.8 10^3/uL (0.2-0.9); Monocytes % 6.5 %; Neutrophils # 8.1 10^3/uL (1.8-8.0); Neutrophils % 68.3 %; Nucleated Red Blood Cells % 0 %; Platelet Count 178 10^3/cmm (130-400); Red Blood Count 4.21 10^6/uL (4.1-5.3); Red Cell Distribution Width 14.7 % (12.1-15.1); White Blood Count 11.9 10^3/uL (4.5-13.0)
[2019-12-01] MEDS: HYDROcodone-acetaminophen 5-325 mg Tablet 1 TAB PO (04:51)
[2019-12-01 05:07] LABS: Alanine Aminotransferase 15 U/L (0-41); Albumin Level 2.7 g/dL (3.5-5.2); Alkaline Phosphatase 85 IU/L (40-130); Anion Gap 15.7 (5-19); Aspartate Amino Transferase 29 U/L (0-40); Blood Urea Nitrogen 6 mg/dL (6-20); Calcium 9.4 mg/dL (8.5-10.5); Carbon Dioxide 26 mmol/L (22-29); Chloride 94 mmol/L (98-107); Globulin 4.9 g/dL (1.3-4.6); Glucose 266 mg/dL (65-115); Potassium 3.7 mmol/L (3.5-5.1); Sodium 132 mmol/L (136-145); Total Bilirubin 0.7 mg/dL (0.15-1.2); Total Protein 7.6 g/dL (6.6-8.7)
[2019-12-01 06:35] LABS: Glucose Point of Care 248 mg/dL (70-110)
--- NOTE | 2019-12-01 06:44 | P.PN_ITS ---
Subjective Subjective: Interval history: Overall patient is feeling better yet sore Vitals/I&O/Wt Last Vital Signs Temp 98.6 F 12/01/19 04:00 Pulse 89 12/01/19 04:00 Resp 18 12/01/19 04:00 BP 111/67 12/01/19 04:00 Pulse Ox 91 12/01/19 04:00 11/30/19 11/30/19 12/01/19 14:59 22:59 06:59 Intake Total 500 / 500 980 / 1480 Output Total 50 / 50 Balance 450 / 450 980 / 1430 Physical Exam Const: COMMON NORMALS: no apparent distress and oriented x3 GENERAL APPEARANCE: cooperative ORIENTATION/CONSCIOUSNESS: Yes awake, Yes oriented to person, Yes oriented to place and Yes oriented to time HENMT: HEAD IMAGES: 1. Abscess cavity shows no residual necrotic tissues or purulent discharge with less surrounding cellulitic changes Extremity: OTHER: Bilateral gluteal abscesses left is about 5 cm in depth and right is about 3 cm in depth Neuro: COMMON NORMALS: oriented x3 SENSORIUM/ORIENTATION: Yes oriented to person, Yes oriented to place and Yes oriented to time Data : 12/01/19 04:20 12/01/19 04:20 Micro: Microbiology 11/30/19 11:28 Gram Stain - Final Neck 11/29/19 00:42 Gram Stain - Final Neck Wound Culture - Preliminary Staphylococcus aureus A&P Assessment and plan (1) Carbuncle and furuncle of neck: Twice daily wet-to-dry dressing change using mini Kerlix to pack the abscess cavity followed by ABDs Packing was done by me bedside on morning rounds in the presence of patient's nurse Swathi and . We will defer antimicrobial therapy plan to hospitalist service The plan of care has been discussed with the patient's mother and she seems to be uncomfortable by performing wound care herself, at this point I do recommend clinical social worker to work with the family and see what would be the potential safe options for the patient. Thank you for consulting general surgery to participate taking care Status: Acute Code(s): L02.12 - Furuncle of neck; L02.13 - Carbuncle of neck (2) Gluteal abscess: Twice daily wet-to-dry using half inch Nu Gauze followed by ABDs Upon discharge patient can follow-up with wound care center Status: Acute Code(s): L02.31 - Cutaneous abscess of buttock Attestations Medical Necessity Statement*: Medical necessity care is expected to cross 2 midnights Time Spent in Patient Care: 16 - 35 minutes (>than 50% of time spent in counselling and/or direct pt care on unit) . Coding Level of Care Code Acute Store Operations Specialist for Chg Fwd Exam Problem Focused Diagnoses Carbuncle and furuncle of neck L02.12; L02.13 Gluteal abscess L02.31
[2019-12-01] MEDS: morphine 4 mg/mL SDV 1 mL 2 MG IVP ×2 (07:08→20:00)
[2019-12-01] MEDS: insulin aspart 70/30 100 units/1 mL 10 UNIT SUBCUT (10:10)
[2019-12-01] MEDS: metformin 500 mg Tablet PO (10:11)
[2019-12-01] MEDS: docusate sodium 100 mg Capsule PO ×2 (10:11→17:42)
[2019-12-01 11:14] VITALS: BP 121/69; PULSE 86; RESP 18; TEMP 36.7; O2SAT 95
[2019-12-01 11:37] LABS: Glucose Point of Care 264 mg/dL (70-110)
--- NOTE | 2019-12-01 14:08 | PM.PN ---
Subjective Subjective: Interval history: dressing change this am with packing- deep neck abscess I&D with level to trapezius. Pain with dressing changes. Afberile, leukocytosis improved to 11 with source control. cx results with MSSA from 11/29. Medications: Reviewed: Yes Vitals/I&O/Wt Last Vital Signs Temp 98.0 F 12/01/19 11:14 Pulse 86 12/01/19 11:14 Resp 18 12/01/19 11:14 BP 121/69 12/01/19 11:14 Pulse Ox 95 12/01/19 11:14 11/30/19 12/01/19 12/01/19 22:59 06:59 14:59 Intake Total 980 / 1480 500 / 1980 240 / 240 Balance 980 / 1430 500 / 1930 240 / 240 Physical Exam Narrative: EXAM NARRATIVE: GEN: Awake, alert and oriented, no acute distress HEENT: large defect over posterior neck with packing in place CVS: S1S2 N RS: CTA B/L Abd: Soft, nt/nd , bs+ RISK PREVENTION ENGINEER: no focal neuro deficits Data : 12/01/19 04:20 12/01/19 04:20 Micro: Microbiology 11/30/19 11:28 Anaerobic Culture - Preliminary Neck Wound Culture - Preliminary Staphylococcus aureus 11/30/19 11:28 Gram Stain - Final Neck Tissue Culture - Preliminary Staphylococcus aureus 11/29/19 00:42 Gram Stain - Final Neck Wound Culture - Final Staphylococcus aureus A&P Assessment and plan (1) Neck abscess: Status: Acute Code(s): L02.11 - Cutaneous abscess of neck (2) Gluteal abscess: Status: Acute Code(s): L02.31 - Cutaneous abscess of buttock (3) Sepsis: Status: Acute Code(s): A41.9 - Sepsis, unspecified organism (4) New onset type 2 diabetes mellitus: Status: Acute Code(s): E11.9 - Type 2 diabetes mellitus without complications (5) Obesity: Status: Acute Qualifiers: Obesity type: due to excess calories Obesity classification: adult class 3 (BMI >= 40) Serious obesity comorbidity presence: with serious comorbidity Body mass index: BMI 45.0-49.9 Qualified Code(s): E66.01 - Morbid (severe) obesity due to excess calories; Z68.42 - Body mass index (BMI) 45.0-49.9, adult Code(s): E66.9 - Obesity, unspecified Additional A&P Information 1. sepsis due to neck abscess, improving 2. Neck abscess s/p I&D surgically with source control. Now improving leukocytosis. BID dressing and surgical packing. Cx with MSSA. D/c vancomycin and start cefazolin 2g iv q8h. Oxacillin not on formulary Will plan for iv abx for duration of AT LEAST 2 weeks given deep seated staphylococcal infection. Further Iv vs oral will need to be based on clinical response PICC line in view of above Outpatient rx likely to be with iv ceftriaxone once daily at infusion center as patient without insurance currently and wont be able to arrange cefazolin at home. 3.DM: change to lantus 10 U and agressive sliding scale. D/c 70/30 insulin. outaptient set up with [facility] continue metformin Full code Attestations Medical Necessity Statement*: ongoing need for iv anx and wound packing in view of deep seated MSSA infection Coding Level of Care Code Acute Steel Erector Apprentice for [facility] Fwd Diagnoses Neck abscess L02.11 Gluteal abscess L02.31 Sepsis A41.9 New onset type 2 diabetes mellitus E11.9 Obesity E66.01; Z68.42 Obesity type: due to excess calories Obesity classification: adult class 3 (BMI >= 40) Serious obesity comorbidity presence: with serious comorbidity Body mass index: BMI 45.0-49.9
[2019-12-01 15:30] VITALS: BP 124/76; PULSE 84; RESP 18; TEMP 36.8; O2SAT 96
[2019-12-01 17:13] LABS: Glucose Point of Care 206 mg/dL (70-110)
[2019-12-01 19:54] VITALS: BP 117/67; PULSE 85; RESP 17; TEMP 36.9; O2SAT 96
[2019-12-01 20:00] VITALS: RESP 20
[2019-12-01 21:48] LABS: Glucose Point of Care 293 mg/dL (70-110)
[2019-12-02] VITALS (10 sets, daily range): BP systolic 109–127; BP diastolic 61–81; PULSE 67–106; RESP 14–20; TEMP 36.3–37.2; O2SAT 94–97
[2019-12-02] MEDS: HYDROcodone-acetaminophen 5-325 mg Tablet 1 TAB PO ×3 (00:43→23:35)
[2019-12-02] MEDS: temazepam 15 mg Capsule 30 MG PO (01:56)
[2019-12-02 02:17] LABS: Basophils # 0.1 10^3/uL (0.0-0.1); Basophils % 0.5 %; Eosinophils # 0.3 10^3/uL (0.0-0.8); Hematocrit 33.8 % (42.0-52.0); Hemoglobin 10.5 g/dL (11.7-16.6); Lymphocytes # 2.6 10^3/uL (1.5-6.5); Lymphocytes % 25.9 %; Mean Corpuscular HGB Conc 31.1 g/dL (30.0-36.0); Mean Corpuscular Hemoglobin 24.6 pg (28.0-34.0); Mean Corpuscular Volume 79.2 fL (80-94); Mean Platelet Volume 11.7 fL (7.4-10.4); Monocytes # 0.5 10^3/uL (0.2-0.9); Monocytes % 5.3 %; Neutrophils # 6.4 10^3/uL (1.8-8.0); Neutrophils % 63.4 %; Nucleated Red Blood Cells % 0 %; Platelet Count 200 10^3/cmm (130-400); Red Blood Count 4.27 10^6/uL (4.1-5.3); Red Cell Distribution Width 14.8 % (12.1-15.1); White Blood Count 10.2 10^3/uL (4.5-13.0)
[2019-12-02 02:49] LABS: Alanine Aminotransferase 19 U/L (0-41); Albumin Level 3.2 g/dL (3.5-5.2); Alkaline Phosphatase 90 IU/L (40-130); Anion Gap 16.5 (5-19); Aspartate Amino Transferase 35 U/L (0-40); Blood Urea Nitrogen 9 mg/dL (6-20); Calcium 9.9 mg/dL (8.5-10.5); Carbon Dioxide 27 mmol/L (22-29); Chloride 95 mmol/L (98-107); Globulin 4.4 g/dL (1.3-4.6); Glucose 213 mg/dL (65-115); Potassium 3.5 mmol/L (3.5-5.1); Sodium 135 mmol/L (136-145); Total Bilirubin 0.4 mg/dL (0.15-1.2); Total Protein 7.6 g/dL (6.6-8.7)
[2019-12-02] MEDS: acetaminophen 325 mg Tablet 650 MG PO (03:09)
[2019-12-02 06:37] LABS: Glucose Point of Care 177 mg/dL (70-110)
[2019-12-02] MEDS: metformin 500 mg Tablet PO (08:17)
[2019-12-02] MEDS: docusate sodium 100 mg Capsule PO ×2 (08:19→19:18)
[2019-12-02] MEDS: morphine 4 mg/mL SDV 1 mL 2 MG IVP ×3 (08:28→21:53)
--- NOTE | 2019-12-02 11:05 | P.PN_ITS ---
Subjective Subjective: Interval history: Leukocytosis resolved. Patient remains afebrile. He is hemodynamically stable. No acute overnight events. Reports pain is adequately controlled except during.'s of dressing change. He is to get a PICC line today. He is currently undergoing twice daily dressing changes. He was switched over to Lantus and NovoLog yesterday from 70/30 insulin. However I am unable to find if he received any Lantus overnight. Fingerstick has ranged between 177-293. Medications: Reviewed: Yes Vitals/I&O/Wt Last Vital Signs Temp 97.8 F 12/02/19 08:00 Pulse 73 12/02/19 08:00 Resp 14 12/02/19 08:28 BP 114/61 12/02/19 08:00 Pulse Ox 94 12/02/19 08:00 12/01/19 12/02/19 12/02/19 22:59 06:59 14:59 Intake Total 50 / 650 360 / 360 Balance 50 / 650 360 / 360 Weight last 48 hrs Weight 149.941 kg Physical Exam Narrative: EXAM NARRATIVE: GEN: Awake, alert and oriented, no acute distress HEENT: large defect over posterior neck with packing in place, not open by me for exam today. CVS: S1S2 N RS: CTA B/L Abd: Soft, nt/nd , bs+ SEC ACCOUNTANT: no focal neuro deficits Data : 12/02/19 01:55 12/02/19 01:55 Micro: Microbiology 11/30/19 11:28 Anaerobic Culture - Preliminary Neck Wound Culture - Final Staphylococcus aureus 11/30/19 11:28 Gram Stain - Final Neck Tissue Culture - Preliminary Staphylococcus aureus 11/29/19 00:42 Gram Stain - Final Neck Wound Culture - Final Staphylococcus aureus A&P Assessment and plan (1) Neck abscess: Status: Acute Code(s): L02.11 - Cutaneous abscess of neck (2) Gluteal abscess: Status: Acute Code(s): L02.31 - Cutaneous abscess of buttock (3) Sepsis: Status: Acute Code(s): A41.9 - Sepsis, unspecified organism (4) New onset type 2 diabetes mellitus: Status: Acute Code(s): E11.9 - Type 2 diabetes mellitus without complications (5) Obesity: Morbid obesity. Will need to follow-up with primary care regarding weight loss options. Status: Acute Qualifiers: Obesity type: due to excess calories Obesity classification: adult class 3 (BMI >= 40) Serious obesity comorbidity presence: with serious comorbidity Body mass index: BMI 45.0-49.9 Qualified Code(s): E66.01 - Morbid (severe) obesity due to excess calories; Z68.42 - Body mass index (BMI) 45.0- 49.9, adult Code(s): E66.9 - Obesity, unspecified Additional A&P Information 1. sepsis due to neck abscess, improving 2. Neck abscess s/p I&D surgically on 11/30 with source control. 50 cc of purulent material was removed. Patient currently has a 9 x 2 x 5 cm surgical wound over the back of neck extending from side to side which is currently being packed twice a day. Now improving leukocytosis. All abscess cultures have grown MSSA. Antibiotics were switched from vancomycin to cefazolin 2g iv q8h with recovery of culture and susceptibility results. Discharge planning is ongoing however complicated by patient's lack of insurance. While ideally drugs of choice for to treat the deep-seated MSSA infection would have been either oxacillin or cefazolin IV upon discharge, neither of these options are currently feasible for the patient. Oxacillin needs to be infused via an infusion pump and cefazolin needs to be given 3 times a day, neither of which would be possible to set up in the absence of home health facilities and inability of patient to pay for home antibiotic infusion. In this setting the next best option is to use alternate agent which is ceftriaxone. CASSIUS on ceftriaxone is 8 which correlates with intermediate susceptibility. However there is data to suggest that as long as oxacillin CASSIUS is less than 0.25, ceftriaxone is an acceptable choice when used at higher dosing of 2 g/day intravenously. (Treatment of Methicillin-Susceptible S taphylococcus aureus Osteoarticular and Prosthetic Joint Infections: Using the Oxacillin Minimum Inhibitory Concentration to Guide Appropriate Ceftriaxone Use Clinical Infectious Diseases, Volume 57, Issue 1, 18 April 2013) We will go ahead and set up the patient for once daily ceftriaxone infusion at our infusion center for which he will return here every day. When he returns for this IV infusion he will undergo wound packing. His mother was encouraged to continue packing the wound twice a day at home, however she states she does not feel up to it and will be unable to change this dressing at home. Since the abscess and now the surgical defect is in a high risk area over the back of neck in close proximity to the spine, it will need to be monitored very carefully and he will additionally follow at wound care clinic at least once a week to ensure no further signs of infection. Will plan for iv abx for duration of AT LEAST 2 weeks given deep seated staphylococcal infection. Further Iv vs oral will need to be based on clinical response. If at the end of 2 weeks of IV antibiotics patient still has a large defect, would recommend prolonging the IV antibiotics to close to 4 weeks. If however the defect is closing satisfactorily, he may be switched to oral antibiotics. Cefadroxil 1 g twice a day may be an acceptable choice for MSSA. However final duration will need to be decided upon follow-up with the wound care clinic and clinical response. PICC line in view of above He has additional folliculitis over his buttocks which will also respond to systemic antibiotics and local wound care. The latter is currently improving. 3.DM: Started on Lantus 10 units daily and aggressive sliding scale for now. We will continue to monitor 24-hour insulin requirements and come up with final outpatient regimen. We will go ahead and order an insulin pen to pharmacy. I nsulin pen education to be provided by RN. DVT ppx: low risk Full code Attestations Medical Necessity Statement*: ongoing need for iv abx, PICC line today Time Spent in Patient Care: Greater than 35 minutes Coding Level of Care Code Acute Concrete Mixing Plant Superintendent for g Fwd Diagnoses Neck abscess L02.11 Gluteal abscess L02.31 Sepsis A41.9 New onset type 2 diabetes mellitus E11.9 Obesity E66.01; Z68.42 Obesity type: due to excess calories Obesity classification: adult class 3 (BMI >= 40) Serious obesity comorbidity presence: with serious comorbidity Body mass index: BMI 45.0-49.9
[2019-12-02 11:17] LABS: C-Peptide 3.13 ng/mL (0.80-3.85)
[2019-12-02 11:24] LABS: Glucose Point of Care 239 mg/dL (70-110)
[2019-12-02] MEDS: insulin glargine 100 units/1 mL 10 UNIT SUBCUT (12:48)
--- NOTE | 2019-12-02 16:30 | PC.CHAP ---
Pastoral Care Encounter/Spiritual Assessment Type of Contact [] Declined principal administrative clerk visit [] Patient/Family/Request visit [] Outpatient visit [] Follow-up visit [] Physician referral [] Code/Alert [x] Routine visit [] Staff referral [] Actively dying [] Patient sleeping [] Family support [] [] Out of room [] Palliative care [] [x] Receiving care in room [] Pre-surgical visit [] Trauma [] Long length of stay [] ICU visit [] Other: Relational/Emotional Strength [x] Patient feels connected with others/family/visitors/staff [] Distress [] Loneliness/isolation [] Abandonment Spirituality of Patient [x] Person of Jacey [x] Attends Restoration of their Jacey [x] Believes in Prayer [] Reads Bible or Christian materials [] There are Spiritual issues to be addressed Water Maintenance Supervisor Interventions [x] Prayer [x] Active listening [x] Non-anxious presence [x] Spiritual/emotional support [] Crisis/trauma care [] Spiritual counseling [] Bereavement support [] Provided bereavement packet [] Provided Bible/devotional materials [] Provided toy/stuffed animal, coloring book to patient or family member [] Provided Communion [] Anointing/[place] [] Salvation [] Completed spiritual assessment [] Other: Impact on Illness or Injury [] Angry [] Fearful [] Anxious [] Often cries [] Exhaustion [] Unable to work [] Unable to attend zoroastrian [] Unable to walk/stand [] Unable to read [] Unable to drive [] Unable to eat/drink [] Unable to sleep [] Unable to be with family [] Patient intubated [] Other: Summary mom and grandma in room, thanked principal administrative clerk for visit Time spent with patient 10 min
[2019-12-02 17:21] LABS: Glucose Point of Care 242 mg/dL (70-110)
[2019-12-02 20:16] LABS: Glucose Point of Care 271 mg/dL (70-110)
[2019-12-02] MEDS: ALPRAZolam 0.25 mg Tablet PO (21:19)
[2019-12-03] VITALS (8 sets, daily range): BP systolic 106–118; BP diastolic 68–74; PULSE 64–70; RESP 16–20; TEMP 36.4–37.1; O2SAT 93–98
[2019-12-03 05:38] LABS: Basophils % 0.5 %; Eosinophils # 0.3 10^3/uL (0.0-0.8); Eosinophils % 3.3 %; Hematocrit 34.7 % (42.0-52.0); Hemoglobin 10.5 g/dL (11.7-16.6); Lymphocytes # 2.9 10^3/uL (1.5-6.5); Lymphocytes % 34.2 %; Mean Corpuscular HGB Conc 30.3 g/dL (30.0-36.0); Mean Corpuscular Volume 82.6 fL (80-94); Mean Platelet Volume 11.7 fL (7.4-10.4); Monocytes # 0.5 10^3/uL (0.2-0.9); Monocytes % 5.4 %; Neutrophils # 4.5 10^3/uL (1.8-8.0); Neutrophils % 53.6 %; Nucleated Red Blood Cells % 0 %; Platelet Count 208 10^3/cmm (130-400); Red Cell Distribution Width 14.7 % (12.1-15.1); White Blood Count 8.4 10^3/uL (4.5-13.0)
[2019-12-03 05:54] LABS: Alanine Aminotransferase 22 U/L (0-41); Albumin Level 2.8 g/dL (3.5-5.2); Alkaline Phosphatase 86 IU/L (40-130); Anion Gap 14.6 (5-19); Aspartate Amino Transferase 41 U/L (0-40); Blood Urea Nitrogen 8 mg/dL (6-20); Calcium 9.8 mg/dL (8.5-10.5); Carbon Dioxide 29 mmol/L (22-29); Chloride 98 mmol/L (98-107); Globulin 4.6 g/dL (1.3-4.6); Glomerular Filtration Rate 171.8 mL/min (90-130); Glucose 198 mg/dL (65-115); Potassium 3.6 mmol/L (3.5-5.1); Sodium 138 mmol/L (136-145); Total Bilirubin 0.4 mg/dL (0.15-1.2); Total Protein 7.4 g/dL (6.6-8.7)
[2019-12-03] MEDS: morphine 4 mg/mL SDV 1 mL 2 MG IVP ×2 (06:06→13:18)
[2019-12-03 07:05] LABS: Glucose Point of Care 184 mg/dL (70-110)
[2019-12-03] MEDS: metformin 500 mg Tablet PO (07:34)
[2019-12-03] MEDS: insulin glargine 100 units/1 mL 10 UNIT SUBCUT (08:40)
[2019-12-03] MEDS: docusate sodium 100 mg Capsule PO ×2 (08:40→17:22)
[2019-12-03] MEDS: HYDROcodone-acetaminophen 5-325 mg Tablet 1 TAB PO ×2 (11:09→19:43)
[2019-12-03 12:04] LABS: Glucose Point of Care 230 mg/dL (70-110)
[2019-12-03] MEDS: ALPRAZolam 0.25 mg Tablet PO (12:15)
--- NOTE | 2019-12-03 15:45 | ANE.PACU2 ---
 Inpatient post-anesthesia follow up: Airway intact: Yes Vital signs: Temperature 98.0 F Pulse Rate [Monito r] 103 Pulse Rate 70 Respiratory Rate 18 Blood Pressure [Le ft Arm] 149/81 Blood Pressure 114/74 Pulse Oximetry 97 Oxygen Delivery Me thod [ Room Air Current Rate & Del albin] Oxygen Delivery Me thod Room Air Oxygen Flow Rate 8 Fraction of Inspir ed Oxygen Hydration adequate: Yes Nausea and vomiting: No Pain level: 1 Mental status: Baseline
[2019-12-03 17:22] LABS: Glucose Point of Care 155 mg/dL (70-110)
[2019-12-03] MEDS: ALPRAZolam 0.25 mg Tablet 0.5 MG PO (19:44)
--- NOTE | 2019-12-03 22:07 | PC.NURSE ---
Discharge instructions and follow up appointments given to patient and mother. education on insulin pen given,mother able to demonstrate use of insulin pen. Sent home Xanax 0.50 mg, due to pharmacy being closed. home medications from Pyxis given to mother. Patient ambulatory to surgical services entrance and to private vehicle with no difficulties
--- NOTE | 2019-12-04 09:11 | P.DS_ITS ---
Discharge Providers Date of Admission: 11/30/19 10:20 Date of Discharge: December 03, 2019 Attending Provider at Admission: Mary Anne Newberry MD Attending Provider at Discharge: Francheska Miles MD Diagnoses at Discharge Discharge Diagnosis (1) Neck abscess: Status: Acute (2) Gluteal abscess: Status: Acute (3) Sepsis: Status: Acute (4) New onset type 2 diabetes mellitus: Status: Acute (5) Obesity: Status: Acute Qualifiers: Obesity type: due to excess calories Obesity classification: adult class 3 (BMI >= 40) Serious obesity comorbidity presence: with serious comorbidity Body mass index: BMI 45.0-49.9 Qualified Code(s): E66.01 - Morbid (severe) obesity due to excess calories; Z68.42 - Body mass index (BMI) 45.0- 49.9, adult Reason for Visit Reason for Visit: Reason For Visit: neck pain Hospital Course Discharge Summary: 19 year old male who presented to the emergency room with chief complaint of neck pain. For several days he said pain in his neck and on his backside. He had multiple sores that he popped . He tried to pop them on his neck and his buttock recently but continued to have problems with recurrent fluid accumulation and increasing pain. He was found to have evidence of abscess formation in both places in the emergency room. These were incised and drained in the ED. Packing was placed. He received a dose of vancomycin. As part of the work-up he was identified as having a blood sugar of 342 and A1c ~12 c/w diabetes mellitus. He underwent I&D surgically on 11/30 with source control. 50 cc of purulent material was removed. Patient currently has a 9 x 2 x 5 cm surgical wound over the back of neck extending from side to side which is currently being packed twice a day. All abscess cultures from neck came back growing MSSA. he received initially vancomycin, switched to cefazolin with recovery of culture results. He is now planned for iv abx infusion of at least 2 weeks for deep seated MSSA inf ection and received a mid line for this reason. Due to insurance issues, he was not able to be set up for home abx infusion and will return to GI lab here for daily ceftriaxone 2g iv qd infusion. He will also undergo wound dressing once daily (as against recommended twice daily) at the GI lab as mother is unable to do this at home. For details of abx selection,please refer to my note from 12/01. While on iv abx, he will follow once weekly with wound care clinic to ensure no worsening. At end of 2 weeks he will follow with me and further abx course will be decided based on clinical response. For his new onset DM, he has been initiated on metformin 500mg qd, insulin lantus 10U at bedtime and novolog 8 units pre meals. Insulin education has been provided including usage instructions for insulin pen. Pens were picked up prior to discharge. He is recommended to check fingersticks at least 3 times a day and present to his outpatient appointment with this chart. Outpatient appointment has been set up with [facility] on 12/06/19. He needs weekly labs with CBC, CMP while on iv abx. Physical Exam Narrative: EXAM NARRATIVE: GEN: Awake, alert and oriented, no acute distress HEENT: large defect over posterior neck with packing in place CVS: S1S2 N RS: CTA B/L Abd: Soft, nt/nd , bs+ WIRE WORKER: no focal neuro deficits Discharge Data Data Completed and Pending: Completed Studies During Hospitalization Category Date Time Status CT neck w con* 70 491 Routine Cat Scan 11/29/19 11:[address] pelvis w con* [id number] Routine Cat Scan 11/29/19 11:15 Completed Pending at discharge Category Date Time Status Anaerobic Culture Routine Lab 11/30/19 11:28 Results Wound Culture Rou francesco Lab 11/30/19 11:28 Results Labs from last 24 hours 12/03/19 12/03/19 17:19 11:00 POC Glucose 155 230 Vitals: Last Vital Signs Temp 97.6 F 12/03/19 22:16 Pulse 64 12/03/19 22:16 Resp 18 12/03/19 22:16 BP 116/72 12/03/19 22:16 Pulse Ox 98 12/03/19 22:16 Discharge Plan Discharge Patient Disposition: Home, Self-Care Condition: Stable Prescriptions: New acetaminophen 325 mg Tablet 650 mg PO Q6H PRN (Reason: Mild/Mod Pain Or Temp >/= 101) Qty: 0 RF: 0 insulin aspart U-100 [Novolog U-100 Insulin aspart] 100 unit/mL Solution See Rx Instructions .ROUTE .COMPLEX Qty: 10 RF: 3 metformin 500 mg Tablet 500 mg PO BREAKFAST 30 Days Qty: 30 RF: 3 Lantus U-100 Insulin 100 unit/mL Solution 10 unit SUBCUT DAILY 30 Days Qty: 3 RF: 0 oxycodone-acetaminophen [Percocet] 5-325 mg tablet 1 tab PO Q6H PRN (Reason: pain) 7 Days Qty: 30 RF: 0 ceftriaxone 2 gram recon soln 2 gm IV DAILY Qty: 14 RF: 0 insulin aspart U-100 [Novolog Flexpen U-100 Insulin] 100 unit/mL (3 mL) insulin pen 8 unit SUBCUT TID Qty: 15 RF: 3 alprazolam 0.25 mg Tablet 0.25 mg PO TID PRN (Reason: Anxiety) 7 Days Qty: 21 RF: 0 Discharge Orders: Discharge Order (Routine); Ordered 12/03/19 Ordered By: Francheska Miles Other Ambulatory Orders: Complete Blood Count w/Auto (Routine) Timeframe: 1 Week Facility: [facility] - Location: Wound Care Services Ordered By: Francheska Miles Comprehensive Metabolic Panel (Routine) Timeframe: 1 Week Facility: [facility] - Location: Wound Care Services Ordered By: Francheska Miles Referrals: GI Lab [Other] (You have an appointment to receive your IV infusion tomorrow as outpatient in the GI Lab. Your appointment is scheduled for 8:00 AM. Please come [place] [facility] [place], ThursdayDecember 04 before 8:00 AM to check in. If you have any questions or concerns, please call Kassandra at [facility] [place] [facility] at [phone]. You may also call the [facility] office number at [phone]. [phone]. ) NILTON LAMA FNP [Referring] - 12/06/19 10:00 am (Appointment with Nilton VAN on December 06 @1000. Her office is @ [facility] @ [address] [place] [address] in [place]. ) Francheska Miles MD [Hospitalist] - 2 weeks (to be seen in GI clinic on last day of abx ) Discharge Diet: Diabetic Discharge Activity: Resume usual activity Patient Instructions: Diabetes and Diet, Metformin (By mouth), Insulin Aspart, Recombinant (Injection), Insulin Glargine (Injection), How to Check Your Blood Sugar (GEN), Diabetes Mellitus Type 2 in Adults (GEN), How to Give a Subcutaneous Injection (GEN) Activity Restrictions/Additional Instructions: Daily dressing changes with packing at GI clinic Once a week fup at wound care clinic weekly labs to be sent for review to Dr. Miles At end of 2 weeks of rx, to be seen by in GI lab to decide further course of abx Discharge Date/Time: 12/03/19 20:15 Discharge Attestations Time Spent in Discharge Care*: greater than 30 min Specific Discharge Activities: Specific discharge activities: educating patient, educating and/or supporting family/caregiver, discussing with field case manager/social workers/dc planners, documenting/other paperwork and evaluating patient/reviewing data Quality Metrics Clinical Quality Measures During this hospital stay, did patient experience: None Coding Level of Care Code Acute Fruit Dumper for g Fwd Diagnoses Neck abscess L02.11 Gluteal abscess L02.31 Sepsis A41.9 New onset type 2 diabetes mellitus E11.9 Obesity E66.01; Z68.42 Obesity type: due to excess calories Obesity classification: adult class 3 (BMI >= 40) Serious obesity comorbidity presence: with serious comorbidity Body mass index: BMI 45.0-49.9
== END 2019-12-03 20:15 | disposition home or self-care (01) | DRG 854 ==
LOC: ER 11-29 01:30 → MEDSURG 11-29 01:54
PROVIDERS: Internal Medicine; Surgery; Admitting Provider Hospitalist; Emergency Provider Emergency Medicine; Visit Provider Student in an Organized Health Care Education/Training Program
PROC: 0J950ZZ Drainage of Left Neck Subcutaneous Tissue and Fascia, Open Approach (ICD-10-PCS; principal; 2019-11-30 11:30)
DX: A41.9 Sepsis, unspecified organism (principal); L02.11 Cutaneous abscess of neck; L02.31 Cutaneous abscess of buttock; Z68.42 Body mass index [BMI] 45.0-49.9, adult; B95.61 Methicillin susceptible Staphylococcus aureus infection as the cause of diseases classified elsewhere; E11.9 Type 2 diabetes mellitus without complications; E66.01 Morbid (severe) obesity due to excess calories
CPT/HCPCS: 12345; 36415; 36416; 70491; 72193; 80053; 80061; 80202; 82962; 83036; 83605; 84681; 85025; 87040; 87070; 87075; 87077; 87176; 87186; 87205; 96372; 96375; 99282; A6446; C1751; G0378; J0330; J0690; J1170; J1815; J2001; J2060; J2250; J2270; J2405; J2704; J2765; J3010; J3370; J3490; J7030; J7040; J7050; Q9967

== ENCOUNTER 2019-12-04 08:00 | Outpatient (CLI) | payer SELFPAY | END 2019-12-04 09:00 | disposition home or self-care (01) | LOC: OPS 06-05 12:58 | PROVIDERS: PCP Internal Medicine; Visit Provider Student in an Organized Health Care Education/Training Program | DX: L02.11 Cutaneous abscess of neck (principal); L02.31 Cutaneous abscess of buttock; Z79.2 Long term (current) use of antibiotics; E11.9 Type 2 diabetes mellitus without complications | CPT/HCPCS: 96365 ==

== ENCOUNTER 2019-12-05 07:57 | Outpatient (CLI) | payer SELFPAY ==
[2019-12-05 08:14] VITALS: BP 135/59; PULSE 69; RESP 16; TEMP 36.2; O2SAT 96; BMI 45.7
[2019-12-05] MEDS: cefTRIAXone 2,000 MG in sodium chloride 0.9% (plus) 50 ML 100 MG IV (08:15)
== END 2019-12-05 07:58 | disposition home or self-care (01) ==
LOC: GILAB 08:03
PROVIDERS: Visit Provider Student in an Organized Health Care Education/Training Program
DX: L02.11 Cutaneous abscess of neck (principal); L02.31 Cutaneous abscess of buttock
CPT/HCPCS: 96365; J0696

== ENCOUNTER 2019-12-14 07:45 | Outpatient (RCR) | payer SELFPAY ==
[2019-12-04 08:20] VITALS: BP 107/75; PULSE 69; RESP 18; TEMP 36.1; O2SAT 97
[2019-12-04] MEDS: cefTRIAXone 2,000 MG in sodium chloride 0.9% (plus) 50 ML 100 MG IV (08:22)
[2019-12-04 09:35] VITALS: BP 107/75; PULSE 69; RESP 18; TEMP 36.1; O2SAT 97; BMI 45.3
--- NOTE | 2019-12-04 09:47 | SUR.PREOP ---
Wet to dry dressing change done on neck wound per Dr. Valadez' verbal orders. Neck wound packed with mini kerlex dressing, wet-to-dry. Abd dressing and medipore tape applied. Patient tolerated well. Wet to dry dressing change done to wound on buttock, packed with 1/2 inch nu guaze, wet-to-dry. Abd dressing and medipore tape applied. Patient tolerated well. Patient's mother to do PM dressing changes at home. She verbalized understanding on how to do them.
[2019-12-06 07:50] VITALS: BP 146/70; PULSE 67; RESP 18; TEMP 36.2; O2SAT 98
[2019-12-06] MEDS: cefTRIAXone 2,000 MG in sodium chloride 0.9% (plus) 50 ML 100 MG IV (08:15)
[2019-12-07 07:50] VITALS: BP 130/60; PULSE 70; RESP 22; TEMP 36.4; O2SAT 98
[2019-12-07] MEDS: cefTRIAXone 2,000 MG in sodium chloride 0.9% (plus) 50 ML 100 MG IV (08:09)
[2019-12-07 08:13] LABS: Basophils % 0.4 %; Eosinophils # 0.2 10^3/uL (0.0-0.8); Eosinophils % 1.9 %; Hematocrit 38.3 % (42.0-52.0); Hemoglobin 11.6 g/dL (11.7-16.6); Lymphocytes # 3.5 10^3/uL (1.5-6.5); Lymphocytes % 44.1 %; Mean Corpuscular HGB Conc 30.3 g/dL (30.0-36.0); Mean Corpuscular Hemoglobin 24.6 pg (28.0-34.0); Mean Corpuscular Volume 81.1 fL (80-94); Mean Platelet Volume 11.2 fL (7.4-10.4); Monocytes # 0.4 10^3/uL (0.2-0.9); Neutrophils # 3.7 10^3/uL (1.8-8.0); Neutrophils % 46.5 %; Nucleated Red Blood Cells % 0 %; Platelet Count 232 10^3/cmm (130-400); Red Blood Count 4.72 10^6/uL (4.1-5.3); Red Cell Distribution Width 15.1 % (12.1-15.1)
[2019-12-07 08:30] LABS: Alanine Aminotransferase 43 U/L (0-41); Albumin Level 3.4 g/dL (3.5-5.2); Alkaline Phosphatase 79 IU/L (40-130); Anion Gap 13.8 (5-19); Aspartate Amino Transferase 73 U/L (0-40); Blood Urea Nitrogen 7 mg/dL (6-20); Calcium 10.3 mg/dL (8.5-10.5); Carbon Dioxide 29 mmol/L (22-29); Chloride 98 mmol/L (98-107); Globulin 4.5 g/dL (1.3-4.6); Glucose 159 mg/dL (65-115); Potassium 3.8 mmol/L (3.5-5.1); Sodium 137 mmol/L (136-145); Total Bilirubin 0.4 mg/dL (0.15-1.2); Total Protein 7.9 g/dL (6.6-8.7)
[2019-12-08 08:26] VITALS: BP 106/72; PULSE 65; RESP 16; TEMP 36.6; O2SAT 98
[2019-12-08] MEDS: cefTRIAXone 2,000 MG in sodium chloride 0.9% (plus) 50 ML 100 MG IV (08:30)
[2019-12-09] MEDS: cefTRIAXone 2,000 MG in sodium chloride 0.9% (plus) 50 ML 100 MG IV (08:15)
[2019-12-09 08:29] VITALS: BP 120/58; PULSE 65; RESP 16; TEMP 36.2; O2SAT 98
--- NOTE | 2019-12-09 10:38 | PC.SOCIAL ---
Sent lab work to Dr Miles to review from 12/07/2019.
[2019-12-10] MEDS: cefTRIAXone 2,000 MG in sodium chloride 0.9% (plus) 50 ML 100 MG IV (08:21)
[2019-12-10 08:32] LABS: Basophils % 0.5 %; Eosinophils # 0.1 10^3/uL (0.0-0.8); Eosinophils % 1.8 %; Hematocrit 39.2 % (42.0-52.0); Hemoglobin 11.9 g/dL (11.7-16.6); Lymphocytes % 38.8 %; Mean Corpuscular HGB Conc 30.4 g/dL (30.0-36.0); Mean Corpuscular Hemoglobin 24.7 pg (28.0-34.0); Mean Corpuscular Volume 81.3 fL (80-94); Mean Platelet Volume 11.3 fL (7.4-10.4); Monocytes # 0.4 10^3/uL (0.2-0.9); Monocytes % 4.8 %; Neutrophils # 4.1 10^3/uL (1.8-8.0); Neutrophils % 53.7 %; Nucleated Red Blood Cells % 0 %; Platelet Count 211 10^3/cmm (130-400); Red Blood Count 4.82 10^6/uL (4.1-5.3); Red Cell Distribution Width 15.3 % (12.1-15.1); White Blood Count 7.6 10^3/uL (4.5-13.0)
[2019-12-10 08:55] VITALS: BP 125/66; PULSE 74; RESP 18; TEMP 36.2; O2SAT 98
[2019-12-10 09:04] LABS: Alanine Aminotransferase 52 U/L (0-41); Albumin Level 3.5 g/dL (3.5-5.2); Alkaline Phosphatase 87 IU/L (40-130); Anion Gap 16.2 (5-19); Aspartate Amino Transferase 71 U/L (0-40); Blood Urea Nitrogen 10 mg/dL (6-20); Calcium 10.5 mg/dL (8.5-10.5); Carbon Dioxide 27 mmol/L (22-29); Chloride 96 mmol/L (98-107); Globulin 4.9 g/dL (1.3-4.6); Glucose 237 mg/dL (65-115); Potassium 4.2 mmol/L (3.5-5.1); Sodium 135 mmol/L (136-145); Total Bilirubin 0.4 mg/dL (0.15-1.2); Total Protein 8.4 g/dL (6.6-8.7)
[2019-12-11] MEDS: cefTRIAXone 2,000 MG in sodium chloride 0.9% (plus) 50 ML 100 MG IV (08:05)
[2019-12-11 08:19] VITALS: BP 121/68; PULSE 77; RESP 18; TEMP 36.4; O2SAT 98
[2019-12-12] MEDS: cefTRIAXone 2,000 MG in sodium chloride 0.9% (plus) 50 ML 100 MG IV (08:20)
[2019-12-12 09:18] VITALS: BP 119/62; PULSE 80; RESP 20; TEMP 36; O2SAT 98
--- NOTE | 2019-12-12 16:57 | PC.SOCIAL ---
Dr Miles reviewed labs from Sat. Order given to decrease Ceftriaxone dose to 1 Gram daily. Repeat LFT's on 12/14/2019 no need to draw CBC or full CMP on this date. Also talked to Mom to update other than the one tablet twice daily of Oxycodone prior to dressing changes no additional Tylenol should be taken. Mom indicates he has not taken any extra and verbalized understanding of instructions. New orders given to outpatient.
[2019-12-13] MEDS: cefTRIAXone 1,000 MG in sodium chloride 0.9% (plus) 50 ML 100 MG IV (08:42)
[2019-12-13 09:04] VITALS: BP 143/66; PULSE 81; RESP 20; TEMP 35.4; O2SAT 98
[2019-12-14 08:00] VITALS: BP 121/61; PULSE 77; RESP 16; TEMP 36.6; O2SAT 98
[2019-12-14] MEDS: cefTRIAXone 1,000 MG in sodium chloride 0.9% (plus) 50 ML 100 MG IV (08:25)
[2019-12-14 08:32] LABS: Alanine Aminotransferase 50 U/L (0-41); Albumin Level 3.3 g/dL (3.5-5.2); Alkaline Phosphatase 86 IU/L (40-130); Aspartate Amino Transferase 59 U/L (0-40); Globulin 4.6 g/dL (1.3-4.6); Total Bilirubin 0.6 mg/dL (0.15-1.2); Total Protein 7.9 g/dL (6.6-8.7)
[2019-12-15 08:00] VITALS: BP 132/68; PULSE 73; RESP 18; TEMP 35.5; O2SAT 97
[2019-12-15] MEDS: cefTRIAXone 1,000 MG in sodium chloride 0.9% (plus) 50 ML 100 MG IV (08:15)
[2019-12-16] MEDS: cefTRIAXone 1,000 MG in sodium chloride 0.9% (plus) 50 ML 100 MG IV (08:28)
[2019-12-16 08:31] VITALS: BP 124/66; PULSE 79; RESP 18; TEMP 36.2; O2SAT 98
[2019-12-17] MEDS: cefTRIAXone 1,000 MG in sodium chloride 0.9% (plus) 50 ML 100 MG IV (08:20)
[2019-12-17 08:25] VITALS: BP 128/69; PULSE 70; RESP 18; TEMP 36.2; O2SAT 98
== END 2019-12-17 23:59 | disposition home or self-care (01) ==
LOC: GILAB 07:45
PROVIDERS: Nurse Practitioner Family; Visit Provider Student in an Organized Health Care Education/Training Program
DX: L02.11 Cutaneous abscess of neck (principal); R94.5 Abnormal results of liver function studies
CPT/HCPCS: 15852; 36415; 36592; 80053; 80076; 85025; 96365; J0696

== ENCOUNTER 2019-12-19 09:49 | Outpatient (CLI) | payer SELFPAY ==
--- NOTE | 2019-12-19 10:23 | CT_ITS ---
WS: [id number] CT of the lumbar spine, additional two-dimensional coronal and sagittal imaging was obtained. 0 Clinical Data: EPIDURAL/PARASPINAL ABSCESS Comparison: None. DLP: 2831.[address] scans at [facility] use at least one of these dose optimization techniques: automat ed exposure control; mA and/or kV adjustment per patient size (includes targeted exams where dose is matched to clinical indication); or iterative reconstruction. Findings: The disc heights are normal. There are no compression fractures. No bone destruction or ero vickie is seen. The spinous processes are in good alignment. The transverse processes are nonremarkable . The SI joints are normal. T12-L1: No canal stenosis, disc bulge or foraminal narrowing is seen. L1-L2: No canal stenosis, disc bulge or foraminal narrowing is seen. L2-L3: No canal stenosis, disc bulge or foraminal narrowing is seen. L3-L4: There is a central bulging disc causing canal stenosis but no significant foraminal hypertroph y. L4-L5: There is a central bulging disc causing canal stenosis along with slight facet joint hypertrop hy causing foraminal stenosis. L5-S1: There is a posterior osteophyte formation causing canal stenosis along with central disc bulge . CT/CT lumbar spine w con [id number] Impression: 1. Central bulging discs at L3-L4 and L4-L5 causing canal stenosis. 2. Posterior osteophyte at L5-S1 causing canal stenosis. 3. Facet joint hypertrophy at L4-L5 causing foraminal stenosis.
[2019-12-19] MEDS: iohexol 300 mg/mL 100 mL Btl IV (10:42)
== END 2019-12-19 09:50 | disposition home or self-care (01) ==
PROVIDERS: PCP Nurse Practitioner Family; Visit Provider Student in an Organized Health Care Education/Training Program
DX: G06.2 Extradural and subdural abscess, unspecified (principal); M48.061 Spinal stenosis, lumbar region without neurogenic claudication; M25.78 Osteophyte, vertebrae; M51.26 Other intervertebral disc displacement, lumbar region
CPT/HCPCS: 72132

== ENCOUNTER 2019-12-20 08:14 | Outpatient (RCR) | payer SELFPAY ==
[2019-12-18] MEDS: cefTRIAXone 2,000 MG in sodium chloride 0.9% (plus) 50 ML 100 MG IV (07:59)
[2019-12-18 08:05] VITALS: BP 121/68; PULSE 73; RESP 18; TEMP 36.2; O2SAT 96
[2019-12-18 08:06] VITALS: BMI 47.4
[2019-12-19 08:00] VITALS: BP 134/74; PULSE 71; RESP 16; TEMP 35.9; O2SAT 98
[2019-12-19] MEDS: cefTRIAXone 1,000 MG in sodium chloride 0.9% (plus) 50 ML 100 MG IV (08:26)
--- NOTE | 2019-12-19 08:40 | PC.NURSE ---
DR DARBY CAME BY TO ASSESS THE WOUNDS ON THE PATIENT AND THE PATIENT C/O RLE NUMBNESS, SO DR DARBY ORDERED AN URGENT CT SCAN TO RULE OUT ANY OTHER ISSUES. DR DARBY SPOKE WITH THIS NURSE TO INFORM US THAT SHE ORDERED ANOTHER DOSE OF THE ANTIBIOTIC FOR TOMORROW MORNING 12/20/19 AND WILL HAVE THE RESULTS OF THE CT. IF THE CT IS CLEAR THEN SHE HAS GIVEN VERBAL ORDERS TO PULL THE PICC LINE AFTER TOMORROWS DOSE OF ANTIBIOTIC.
[2019-12-19 08:45] VITALS: BMI 47.4
[2019-12-19 09:16] LABS: Basophils % 0.6 %; Eosinophils # 0.2 10^3/uL (0.0-0.8); Eosinophils % 2.8 %; Hematocrit 36.2 % (42.0-52.0); Hemoglobin 11.1 g/dL (11.7-16.6); Lymphocytes # 2.4 10^3/uL (1.5-6.5); Lymphocytes % 35.1 %; Mean Corpuscular HGB Conc 30.7 g/dL (30.0-36.0); Mean Corpuscular Hemoglobin 25.9 pg (28.0-34.0); Mean Corpuscular Volume 84.4 fL (80-94); Mean Platelet Volume 12.2 fL (7.4-10.4); Monocytes # 0.4 10^3/uL (0.2-0.9); Monocytes % 5.7 %; Neutrophils # 3.8 10^3/uL (1.8-8.0); Neutrophils % 55.7 %; Nucleated Red Blood Cells % 0 %; Platelet Count 146 10^3/cmm (130-400); Red Blood Count 4.29 10^6/uL (4.1-5.3); Red Cell Distribution Width 16.1 % (12.1-15.1); White Blood Count 6.9 10^3/uL (4.5-13.0)
[2019-12-19 09:39] LABS: Alanine Aminotransferase 51 U/L (0-41); Albumin Level 3.7 g/dL (3.5-5.2); Alkaline Phosphatase 95 IU/L (40-130); Anion Gap 13.9 (5-19); Aspartate Amino Transferase 55 U/L (0-40); Blood Urea Nitrogen 8 mg/dL (6-20); Calcium 9.8 mg/dL (8.5-10.5); Carbon Dioxide 26 mmol/L (22-29); Chloride 100 mmol/L (98-107); Globulin 4.4 g/dL (1.3-4.6); Glomerular Filtration Rate 274.3 mL/min (90-130); Glucose 267 mg/dL (65-115); Potassium 3.9 mmol/L (3.5-5.1); Sodium 136 mmol/L (136-145); Total Bilirubin 0.5 mg/dL (0.15-1.2); Total Protein 8.1 g/dL (6.6-8.7)
--- NOTE | 2019-12-19 21:18 | PM.CONSULT ---
Providers/Reason For Consult Consulting Physican/Specialty*: Internal Medicine/Infectious Disease Reason for Consult*: f/up MSSA neck abscess Attending Physician: Francheska Miles MD Primary Care Provider: NILTON LAMA History of Present Illness History of Present Illness Oliver Humphreys is a 19 year old male recently seen by me on an inapatient admission for deep MSSA neck abscess and superficial butock abscesses. For details of this admission, please see discharge summary from november 2019. since discharge he has been receiving iv ceftriaxone 2g qd, later changed to 1g daily due to elevated LFTs. He has continued daily dressing changes at GI lab. Overall his wound is [id number] improved, with healthy granulation tissue at base. He feels well, pain is improved. There are no fevers. His complaint today is that he has been experiencing right thigh numbness since at least his hospital discharge, which has been persisting without any overt improvement or worsening. Review of Systems General: Reports: 10 or more systems reviewed and unremarkable except in HPI and below Const: Denies: fever, chills or body aches Eyes: Denies: change in vision, blurry vision or photophobia ENMT: Reports: hoarseness; Denies: throat pain, enlarged tonsils, painful swallowing or nasal congestion Card: Denies: chest pain, palpitations, irregular heart rhythm, edema, swelling of feet/ankles, lightheadedness, pre-syncope, shortness of breath on exertion or shortness of breath when lying down Resp: Denies: shortness of breath, productive cough, non-productive cough, wheezing, stridor, pain on inspiration, change in phlegm color, coughing up blood or chest congestion GI: Denies: abdominal pain, nausea, vomiting, vomiting blood, coffee grounds in vomit, difficulty swallowing, heartburn/indigestion, diarrhea, constipation, cramping, change in stool character, blood in stool or black tarry stool : Denies: flank pain, painful urination, urinary frequency, urinary urgency, urinary hesitancy or blood in urine Musc: Denies: neck pain, back pain, extremity pain, joint swelling, joint warmth or deformity Neuro: Reports: numbness in extremities; Denies: headache, weakness in extremities, changes in sensation, difficulty walking, frequent falls, dizziness, vertigo, behavioral changes, slurred speech or seizure-like activity Psych: Denies: anxiety, depression, suicidal ideation or homicidal ideation Endo: Denies: excessive urination, excessive thirst, tired all the time, cold intolerance or hot flashes Isidro/Lymph: Denies: easy bruising or easy bleeding Meds/Allergies Home Medications and Allergies Home Medications Medication Instructions Recorded Confirmed Type metformin 500 mg PO BID 12/15/19 12/18/19 History Allergies Allergy/AdvReac Type Severity Reaction Status Date / Time No Known Allergies Allergy Verified 12/18/19 08:00 Current Medications Current Medications Generic Name Dose Route Start Last Admin Trade Name Freq PRN Reason Stop Dose Admin Ceftriaxone Sodium 1,000 mg/ 50 mls @ 100 mls/hr 12/19/19 08:00 12/19/19 09:02 Sodium Chloride IV Infused Q24H STEPHANIE Infusion Protocol PFSH Acute PFSH: Medical History Obesity Surgical History History of tonsillectomy Family History Mother Diabetes Social History Smoking and tobacco status: former smoker Alcohol intake: never Household members: family Highest education level completed: 11th Grade Vitals/I&O/Wt Last Vital Signs Temp 96.7 F L 12/19/19 08:00 Pulse 71 12/19/19 08:00 Resp 16 12/19/19 08:00 BP 134/74 12/19/19 08:00 Pulse Ox 98 12/19/19 08:00 12/19/19 12/19/19 12/19/19 06:59 14:59 22:59 Intake Total 50 / 50 Balance 50 / 50 Weight last 48 hrs Weight 154.221 kg Weight 154.221 kg Physical Exam Narrative: EXAM NARRATIVE: GEN: Awake, alert and oriented, no acute distress HEENT: significantly improved wound with healthy granulation tissue over back of neck CVS: S1S2N RS: CTA B/L Abd: Soft, nt/nd , bs+ MASTER OCEAN: no focal neuro deficits A&P Assessment and plan (1) Encounter for recheck of abscess following incision and drainage: Overall wound healing well, healthy granulation tissue at base C/o R thigh numbness, will check CT lumbar spine to r/o epidural or paraspinal abscess from MSSA If ct negative will discontinue iv ceftriaxone and remove PICC line Will continue daily wound care and f/up with wound care center Status: Acute Code(s): Z09 - Encounter for follow-up examination after completed treatment for conditions other than malignant neoplasm Coding Level of Care Code Acute Chief Optometry Service for Dilma Fwshashank Diagnoses Encounter for recheck of abscess following incision and drainage Z09
[2019-12-20 07:54] VITALS: BP 123/64; PULSE 67; RESP 14; TEMP 35.9; O2SAT 97
[2019-12-20] MEDS: cefTRIAXone 1,000 MG in sodium chloride 0.9% (plus) 50 ML 100 MG IV (08:08)
== END 2020-01-17 23:59 | disposition home or self-care (01) ==
LOC: GILAB 08:14
PROVIDERS: PCP Nurse Practitioner Family; Visit Provider Student in an Organized Health Care Education/Training Program
DX: L02.11 Cutaneous abscess of neck (principal); L02.31 Cutaneous abscess of buttock
CPT/HCPCS: 12345; 15852; 36592; 80053; 85025; 96365; J0696

== ENCOUNTER 2020-05-28 21:41 | Emergency (ER) | payer SELFPAY ==
[2020-05-28 21:55] VITALS: BP 117/67; PULSE 104; RESP 18; TEMP 36.6; O2SAT 97; BMI 46.0
--- NOTE | 2020-05-28 22:29 | XRR_ITS ---
PROCEDURE INFORMATION: Exam: XR Right Tibia and Fibula Exam date and time: 05/29/2020 12:13 AM Age: 20 years old Clinical indication: Pain; Swelling, leg or foot; Patient HX: Right lower leg redness and swelling TECHNIQUE: Imaging protocol: XR Right tibia and fibula. Views: 2 views. COMPARISON: No relevant prior studies available. FINDINGS: Bones/joints: Osseous structures normal. No erosive changes. No periosteal response. No fracture. No soft tissue calcifications. Osseous structures about the knee normal. No joint effusion. Soft tissues unremarkable. Medial and lateral malleoli normal. ankle mortise is symmetrical. Hindfoot foot unremarkable. Tibiotalar joint and the subtalar joint normal. Soft tissues: See Bones/joints finding. XR/XR tibia fibula RT 2V [id number] IMPRESSION: Normal leg.
--- NOTE | 2020-05-28 22:35 | W.ED.SKABFB ---
HPI - Skin/Abscess/Foreign Bdy General: Chief complaint: Skin/Abscess/Foreign Body Stated complaint: spots on legs Time Seen by Provider: 05/28/20 21:59 Source: patient Mode of arrival: ambulatory Limitations: no limitations History of Present Illness: HPI narrative: Oliver is a 20-year-old male brought in by his mother with report of infection are on his right lower extremity. The symptoms began last night and have gotten progressively worse. The patient has been chilled at home but no fever was measured. Patient complains of pain in the affected area. The mother believes that the results are from fleabites. He has bites on the other leg as well but it is this like that is gotten infected. There is been no reported nausea or vomiting, chest pain or shortness of breath. Patient denies any abdominal pain or back pain. Patient has increased pain when he tries to walk on his leg. Associated symptoms: Deny chills, fever(s), nausea or vomiting Review of Systems Const: Denies: fever(s), chills, body aches, fatigue, malaise or diaphoresis Eyes: Denies: change in vision, blurry vision, blind spots, photophobia, eye discharge or eye redness ENMT: Denies: throat pain, odynophagia, hoarseness, swelling of lips/tongue, oral sores, ear or mastoid pain, ear discharge, change in hearing or nasal discharge Card: Denies: chest pain, palpitations, irregular heart rhythm, edema, lightheadedness, syncope, pre-syncope, dyspnea on exertion or orthopnea Resp: Denies: dyspnea, productive cough, non-productive cough, wheezing, hemoptysis or chest congestion GI: Denies: abdominal pain, nausea, vomiting, hematemesis, coffee ground emesis, heartburn, diarrhea, constipation, GI cramping, hematochezia or melena : Denies: flank pain, dysuria, urinary frequency, urinary urgency or hematuria Musc: Denies: neck pain, back pain, extremity pain, extremity swelling, joint pain, joint swelling, joint redness, joint warmth or joint stiffness Skin/Breast: Reports: skin tenderness and other (See HPI); Denies: rash, pruritus, erythema or jaundice Neuro: Denies: headache(s), numbness in extremities, weakness in extremities, sensory changes, lack of coordination, difficulty walking, dizziness, vertigo, confusion, Slurred speech present or seizure-like activity Isidro/Lymph: Denies: easy bruising, easy bleeding, petechiae, purpura or enlarged lymph nodes All/Imm: Denies: urticaria, throat swelling, tongue swelling, facial swelling or acute wheezing PFSH ED PFSH: Medical History DM type 2 (diabetes mellitus, type 2) Obesity Surgical History History of incision and drainage History of tonsillectomy Family History Mother Diabetes Denies family history of Anesthesia complication Bleeding disorder Social History Smoking and tobacco status: former smoker Alcohol intake: never Household members: family Highest education level completed: 11th Grade Physical Exam Const: COMMON NORMALS: no acute distress, patient oriented x3, no limitations, healthy appearing and well nourished GENERAL APPEARANCE: cooperative, well kempt and well developed HENMT: COMMON NORMALS: normocephalic, atraumatic, external ears normal, EAC's normal and Normal external nose present HEAD & SCALP: normal to inspection, normocephalic and atraumatic FACE & SINUS: normal facial exam and face symmetric NOSE: Normal external nose present and Normal nares present EXTERNAL EAR: Yes external ears normal EXTERNAL AUDITORY CANAL: EAC's normal MOUTH: Normal oral and palatal mucosa present, lip normal and tongue normal Eye: COMMON NORMALS: Equal, round and reactive pupils present and conjunctivae normal GENERAL EYE: appearance normal, both eyes and all related structures ALIGNMENT: Yes alignment normal PERIORBITAL: periorbital findings normal EYELID: eyelids normal CONJUNCTIVA: Yes conjunctivae normal SCLERA: sclerae normal PUPIL: Yes Equal, round and reactive pupils present Neck/C-Spine: COMMON NORMALS: full ROM, no lymphadenopathy, supple, no meningeal signs and no JVD GENERAL: Yes normal visual inspection and Yes trachea midline Chest: COMMONS NORMALS: normal inspection of the chest and normal palpation of entire chest wall Resp: COMMON NORMALS: normal respiratory effort, No retractions and No use of accessory muscles EFFORT & INSPECTION: Yes able to speak in complete sentences and Yes symmetric chest movement AUSCULTATION: no crackles, no rales, no rhonchi and no wheezes Cardio: COMMON NORMALS: no JVD, regular rate, regular rhythm, S1 normal heart sound present and S2 normal heart sound present RATE: regular rate RHYTHM: regular rhythm HEART SOUNDS: S1 normal heart sound present, S2 normal heart sound present, no click, no gallops, no murmurs, no rubs, abnormal split S2 and Other heart sounds present (Tachycardia noted in triage has resolved per auscultation) GI: COMMON NORMALS: Soft to palpation and No hepatosplenomegaly present PALPATION: Yes Soft to palpation, No Tenderness to palpation present (GI), No Guarding due to palpation present (GI), No Rigid due to palpation, Yes No hepatosplenomegaly present, No Hernia present, No Palpable mass present and No Pulsatile mass present : COMMON NORMALS: Yes no CVA tenderness BLADDER/KIDNEY EXAM: Yes no CVA tenderness Back/Pelvis: COMMON NORMALS: no CVA tenderness, thoracic and lumbar spine normal to inspection, no thoracic nor lumbar tenderness and thoraco-lumbar ROM normal Extremity: COMMON NORMALS: normal to inspection, full ROM, capillary refill normal, no joint enlargement, no clubbing, cyanosis or edema and no calf tenderness Neuro: COMMON NORMALS: patient oriented x3, CN's II-XII intact bilaterally, moves all extremities, no focal motor deficits and no sensory deficits noted MENINGEAL SIGNS: Yes no meningeal signs SPEECH: speech normal Psych: COMMON NORMALS: mental status grossly normal, Normal thought process present, cooperative, normal affect, speech normal and activity/motor behavior normal APPEARANCE: Yes well kempt SPEECH: Yes normal speech THOUGHT PROCESS: Normal thought process present Skin: COMMON NORMALS: turgor normal, no jaundice, no petechiae and no mottling NARRATIVE SKIN EXAM: Bandlike area of cellulitis noted to right lower extremity with associated areas of bites. Areas of excoriation noted as well. No crepitance or skin sloughing or other sign of necrotizing fasciitis. Area is severely painful to palpation. GENERAL SKIN EXAM: turgor normal Course Vital Signs: Vital signs: Vital Signs Temperature 97.8 F 05/28/20 21:55 Pulse Rate 101 H 05/29/20 04:32 Respiratory Rate 15 05/29/20 04:32 Blood Pressure 123/76 05/29/20 04:32 Pulse Oximetry 99 05/29/20 04:32 MDM - Skin/Abscess/Foreign Bdy MDM Narrative: Medical decision making narrative: The CT findings concerning of early fasciitis were discussed with Dr. Villanueva and Dr. Kinsey. They both feel the patient needs to be transferred to where a facility will have plastic surgery for repair. I have called both [facility] and [facility] in [place] and they are on diversion. I called the [facility] in [place] and they are on diversion also. I called [facility] in [place] and they will agree to accept the patient. The case was reviewed with Drs. Castaneda and Bryanna and they will accept the patient to the ER. Clinically the patient symptoms have not advanced at all but because of the seriousness of this diagnosis I have spoken with all local air ambulance services and none are flying secondary to weather. The patient will have to be transferred by ground. Lab Data: Attestation: I reviewed the patient's lab results. Labs: Lab Results 05/28/20 05/28/20 05/28/20 Range/Units 22:40 22:40 22:40 WBC 14.7 H (4.0-10.0) 10^3/ uL RBC 5.14 (4.1-5.3) 10^6/u L Hgb 12.6 (11.7-16.6) g/dL Hct 41.2 L (42.0-52.0) % MCV 80.2 (80-94) fL MCH 24.5 L (28.0-34.0) pg MCHC 30.6 (30.0-36.0) g/dL RDW 16.0 H (12.1-15.1) % Plt Count 145 (130-400) 10^3/c mm MPV 11.6 H (7.4-10.4) fL Neut % (Auto) 76.3 % Lymph % (Auto) 17.9 % Trimble % (Auto) 5.1 % Eos % (Auto) 0.0 % Baso % (Auto) 0.4 % Neut # (Auto) 11.22 H (1.8-7.7) 10^3/u L Lymph # (Auto) 2.6 (0.8-4.8) 10^3/u L Trimble # (Auto) 0.8 (0.2-0.9) 10^3/u L Eos # (Auto) 0.0 (0.0-0.8) 10^3/u L Baso # (Auto) 0.1 (0.0-0.1) 10^3/u L Nucleated RBC % (a uto) 0 % Nucleated RBCs # 0.0 /100WBC D-Dimer 0.80 H (0-0.59) ug/mIFE U Sodium 127 L (136-145) mmol/L Potassium 4.0 (3.5-5.1) mmol/L Chloride 92 L (98-107) mmol/L Carbon Dioxide 26 (22-29) mmol/L Anion Gap 13.0 (5-19) BUN 10 (6-20) mg/dL Creatinine 0.8 (0.7-1.2) mg/dL GFR Calculation 122.0 (90-130) mL/min Glucose 314 H (65-115) mg/dL POC Glucose (70-110) mg/dL Calculated Osmolal ity 272 L (285-295) mOsm/k g Lactic Acid (0.5-2.2) mmol/L Calcium 10.0 (8.5-10.5) mg/dL Total Bilirubin 1.3 H (0.15-1.2) mg/dL AST 54 H (0-40) U/L ALT 47 H (0-41) U/L Alkaline Phosphata se 86 (40-130) IU/L Total Protein 8.5 (6.6-8.7) g/dL Albumin 4.1 (3.5-5.2) g/dL Globulin 4.4 (1.3-4.6) g/dL Serum Ketones (Negative) 05/28/20 05/28/20 05/29/20 Range/Units 22:40 22:40 03:36 WBC (4.0-10.0) 10^3/ uL RBC (4.1-5.3) 10^6/u L Hgb (11.7-16.6) g/dL Hct (42.0-52.0) % MCV (80-94) fL MCH (28.0-34.0) pg MCHC (30.0-36.0) g/dL RDW (12.1-15.1) % Plt Count (130-400) 10^3/c mm MPV (7.4-10.4) fL Neut % (Auto) % Lymph % (Auto) % Trimble % (Auto) % Eos % (Auto) % Baso % (Auto) % Neut # (Auto) (1.8-7.7) 10^3/u L Lymph # (Auto) (0.8-4.8) 10^3/u L Trimble # (Auto) (0.2-0.9) 10^3/u L Eos # (Auto) (0.0-0.8) 10^3/u L Baso # (Auto) (0.0-0.1) 10^3/u L Nucleated RBC % (a uto) % Nucleated RBCs # /100WBC D-Dimer (0-0.59) ug/mIFE U Sodium (136-145) mmol/L Potassium (3.5-5.1) mmol/L Chloride (98-107) mmol/L Carbon Dioxide (22-29) mmol/L Anion Gap (5-19) BUN (6-20) mg/dL Creatinine (0.7-1.2) mg/dL GFR Calculation (90-130) mL/min Glucose (65-115) mg/dL POC Glucose 268 (70-110) mg/dL Calculated Osmolal ity (285-295) mOsm/k g Lactic Acid 2.2 (0.5-2.2) mmol/L Calcium (8.5-10.5) mg/dL Total Bilirubin (0.15-1.2) mg/dL AST (0-40) U/L ALT (0-41) U/L Alkaline Phosphata se (40-130) IU/L Total Protein (6.6-8.7) g/dL Albumin (3.5-5.2) g/dL Globulin (1.3-4.6) g/dL Serum Ketones Negative (Negative) Imaging Data^: Tib/Fib: Attestation: I personally reviewed and interpreted this imaging study as follows: My impression: No air in the soft tissues, no osteolytic lesions. Ultrasound venous Doppler RLE: My impression: Tech interpretation -no DVT Ultrasound Right Lower Extremity Soft Tissue: My impression: Tech interpretation -no free fluid or abscess collection. CT Right Lower Extremity: Radiologist's impression: [address] [place] [address] CT Scan Report Signed with Addlit Patient: Oliver Humphreys #: [id number] : 2000Acct#:[id number] Age/Sex: 20 / MADM Date: 05/28/20 Loc: ERRoom/Bed: Attending Dr: Ordering Provider/Ordering MD: Carmen Rodriguez DO Date of Service: 05/29/20 Procedure(s): CT lower leg RT w con [id number] Accession Number(s): [id number] Report Number: [id number]/CT lower leg RT w con [id number] We discussed potential involvement of the fascia anterior to the tibia. There is some thickening of the anterior fascia and fasciitis cannot be entirely excluded. CRITICAL RESULT: THIS REPORT CONTAINS FINDINGS THAT MAY BE CRITICAL TO PATIENT CARE. The findings were verbally communicated via telephone conference with Carmen Ulloa at 2:47 AM CDT on 05/29/2020. The findings were acknowledged and understood. Radiation Dose CTDIVOL = (mGy): DLP = 1180.24 (mGy-cm) Addendum Dictated By: Mike Gallo MD Addendum Signed By: Mike Gallo MDSigned Date/Time:05/29/20 0249 Addendum Cosigned By: PROCEDURE INFORMATION: Exam: CT Right Lower Extremity Without Contrast; Lower Leg Exam date and time: 05/29/2020 12:35 AM Age: 20 years old Clinical indication: Pain; Cellulitis; Lower leg; Right TECHNIQUE: Imaging protocol: CT of the Right lower extremity without contrast was performed. Exam focused on the lower leg. Radiation optimization: All CT scans at this facility use at least one of these dose optimization techniques: automated exposure control; mA and/or kV adjustment per patient size (includes targeted exams where dose is matched to clinical indication); or iterative reconstruction. COMPARISON: CR XR tibia fibula RT 2V [id number] 05/29/2020 12:00 AM RADIATION DOSE METRICS: Total DLP (mGy-cm): 1180.24 FINDINGS: Bones/joints: Normal. No acute fracture or dislocation. Soft tissues: There are some strandy opacity seen within the subcutaneous fat and fascia the mid and distal right leg anteriorly adjacent to the tibia, findings that could represent edematous or inflammatory changes. Cellulitis cannot be entirely excluded. The muscular compartments appear intact. CT/CT lower leg RT w con [id number] IMPRESSION: 1. Some strandy opacities are seen in the subcutaneous fat and fascia adjacent to the tibia within the mid and distal right leg compatible with edematous or inflammatory changes and cellulitis. 2. There are no acute osseous findings 3. The muscular compartments appear intact. Radiation Dose CTDIVOL = (mGy): DLP = 1180.24 (mGy-cm) Dictated By:Mike Gallo MD Signed By:Mike Gallo MDSigned Date/Time:05/29/20224 DD/ 3 Discharge Plan Discharge Patient Disposition: Xfer Short-Term Hosp Clinical Impression: Fasciitis Cellulitis Qualifiers: Site of cellulitis: extremity Site of cellulitis of extremity: lower extremity Laterality: right Qualified Code(s): L03.115 - Cellulitis of right lower limb Condition: Stable Discharge Orders: Discharge Order (Routine); Ordered 05/29/20 Ordered By: Carmen Rodriguez Referrals: JOSUE WILSON DO [Primary Care Provider] - Discharge Date/Time: 05/29/20 04:34 Coding Level of Care Code ED Slot Tag Inserter for Chg Fwd Exam Comprehensive
[2020-05-28 22:51] LABS: Basophils # 0.1 10^3/uL (0.0-0.1); Basophils % 0.4 %; Hematocrit 41.2 % (42.0-52.0); Hemoglobin 12.6 g/dL (11.7-16.6); Lymphocytes # 2.6 10^3/uL (0.8-4.8); Lymphocytes % 17.9 %; Mean Corpuscular HGB Conc 30.6 g/dL (30.0-36.0); Mean Corpuscular Hemoglobin 24.5 pg (28.0-34.0); Mean Corpuscular Volume 80.2 fL (80-94); Mean Platelet Volume 11.6 fL (7.4-10.4); Monocytes # 0.8 10^3/uL (0.2-0.9); Monocytes % 5.1 %; Neutrophils # 11.22 10^3/uL (1.8-7.7); Neutrophils % 76.3 %; Nucleated Red Blood Cells % 0 %; Platelet Count 145 10^3/cmm (130-400); Red Blood Count 5.14 10^6/uL (4.1-5.3); White Blood Count 14.7 10^3/uL (4.0-10.0)
[2020-05-28 22:59] LABS: Ketone (Acetest) Serum Negative (Negative)
[2020-05-28 23:07] LABS: Alanine Aminotransferase 47 U/L (0-41); Albumin Level 4.1 g/dL (3.5-5.2); Alkaline Phosphatase 86 IU/L (40-130); Aspartate Amino Transferase 54 U/L (0-40); Blood Urea Nitrogen 10 mg/dL (6-20); Carbon Dioxide 26 mmol/L (22-29); Chloride 92 mmol/L (98-107); Globulin 4.4 g/dL (1.3-4.6); Glucose 314 mg/dL (65-115); Osmolality Calculated 272 mOsm/kg (285-295); Sodium 127 mmol/L (136-145); Total Bilirubin 1.3 mg/dL (0.15-1.2); Total Protein 8.5 g/dL (6.6-8.7)
[2020-05-28 23:08] LABS: Lactic Sepsis W/Reflex 2.2 mmol/L (0.5-2.2)
--- NOTE | 2020-05-28 23:09 | USCV_ITS ---
Magdalene Humphreysdoris Age: 20 Gender: M : 2000 Exam Date: 05/28/2020 23:47 Ordering Phys: Carmen Rodriguez DO Technologist: Jarvis Hsu Exam Location[place] [facility] [place]ication: RT LEG PAIN AND SWELLING HISTORY: Lower extremity swelling. PROCEDURES: Venous duplex imaging was performed in only the right lower extremity. The following venous structures were evaluated: common femoral vein, profunda vein, proximal portion of the greater saphenous vein, superficial femoral vein, and the popliteal vein. In addition, the posterior tibial and peroneal trunk were evaluated. On the right side, the common femoral, superficial femoral, profunda femoral, popliteal, posterior tibial, greater saphenous veins and the peroneal trunk were identified and interrogated in the standard fashion. These veins were found to be easily compressible with spontaneous blood flow. No evidence of insufficiency or thrombus noted. FINDINGS: Normal 2-D Doppler and augmentation and compressibility throughout the lower extremity venous structures. Additional imaging through the proximal calf veins also reveals no thrombus. Limited evaluation of the greater saphenous vein is patent with no thrombus.. CONCLUSIONS No evidence of right lower extremity DVT. Fidencio Pacheco MD (Electronically Signed) Final Date: 29 May 2020 11:33 S
--- NOTE | 2020-05-28 23:09 | US_ITS ---
WS: [id number] INDICATION: Cellulitis TECHNIQUE: Ultrasound soft tissue FINDINGS: Ultrasound soft tissue right lower leg. Cellulitis with skin thickening. No evidence of carole inable abscess or fluid collection. US/US soft tissue/extremity [id number] IMPRESSION: No evidence of drainable abscess or fluid collection
[2020-05-28] MEDS: sodium chloride 0.9% 1,000 ML 999 ML IV (23:30)
[2020-05-28] MEDS: clindamycin 900 MG/50 ML PREMIX 100 MG IV (23:30)
[2020-05-28 23:40] VITALS: BP 134/87; PULSE 87; RESP 16; O2SAT 99
--- NOTE | 2020-05-29 00:29 | CTR_ITS ---
PROCEDURE INFORMATION: Exam: CT Right Lower Extremity Without Contrast; Lower Leg Exam date and time: 05/29/2020 12:35 AM Age: 20 years old Clinical indication: Pain; Cellulitis; Lower leg; Right TECHNIQUE: Imaging protocol: CT of the Right lower extremity without contrast was performed. Exam focused on the lower leg. Radiation optimization: All CT scans at this facility use at least one of these dose optimization techniques: automated exposure control; mA and/or kV adjustment per patient size (includes targeted exams where dose is matched to clinical indication); or iterative reconstruction. COMPARISON: CR XR tibia fibula RT 2V [id number] 05/29/2020 12:00 AM RADIATION DOSE METRICS: Total DLP (mGy-cm): 1180.24 FINDINGS: Bones/joints: Normal. No acute fracture or dislocation. Soft tissues: There are some strandy opacity seen within the subcutaneous fat and fascia the mid and distal right leg anteriorly adjacent to the tibia, findings that could represent edematous or inflammatory changes. Cellulitis cannot be entirely excluded. The muscular compartments appear intact. CT/CT lower leg RT w con [id number] IMPRESSION: 1. Some strandy opacities are seen in the subcutaneous fat and fascia adjacent to the tibia within the mid and distal right leg compatible with edematous or inflammatory changes and cellulitis. 2. There are no acute osseous findings 3. The muscular compartments appear intact. Radiation Dose CTDIVOL = (mGy): DLP = 1180.24 (mGy-cm)
[2020-05-29 00:32] LABS: Reflex Lactate Order REFLEX LACTIC ORDERD
[2020-05-29] MEDS: iohexol 300 mg/mL 100 mL Btl IV (01:43)
[2020-05-29 01:51] VITALS: RESP 16
[2020-05-29] MEDS: ondansetron 2 mg/ML SDV 2 mL 4 MG IVP (01:51)
[2020-05-29] MEDS: piperacillin-tazobactam 3.375 GM in sodium chloride 0.9% (plus) 50 ML IV (01:51)
[2020-05-29] MEDS: morphine 4 mg/mL SDV 1 mL IVP (01:51)
[2020-05-29 03:28] VITALS: BP 132/87; PULSE 87; RESP 16; O2SAT 94
[2020-05-29 03:41] LABS: Glucose Point of Care 268 mg/dL (70-110)
[2020-05-29 04:32] VITALS: BP 123/76; PULSE 101; RESP 15; O2SAT 99
== END 2020-05-29 04:34 | disposition short-term general hospital (02) ==
PROVIDERS: Emergency Provider Emergency Medicine; PCP Internal Medicine
DX: L03.115 Cellulitis of right lower limb (principal); M72.9 Fibroblastic disorder, unspecified; E11.9 Type 2 diabetes mellitus without complications; Z87.891 Personal history of nicotine dependence
CPT/HCPCS: 12345; 36416; 73590; 73701; 76882; 80053; 82009; 82962; 83605; 85025; 85378; 93971; 96365; 96366; 96375; 96376; 99282; 99285; J2270; J2405; J2543; J3370; J3490; J7030; J7040; J7050; Q9967

== ENCOUNTER 2022-11-05 21:53 | Emergency (ER) | payer BC, MEDICAID, SELFPAY ==
[2022-11-05 22:00] VITALS: BP 129/77; PULSE 94; RESP 14; TEMP 37; O2SAT 97; BMI 43.2
--- NOTE | 2022-11-05 22:09 | W.ED.WOUNDLC ---
HPI - Wound/Laceration General: Chief Complaint: Wound/Laceration Stated Complaint: sores on stomach Time Seen by Provider: 11/05/22 22:06 History of Present Illness: 22-year-old male patient comes in today with complaints of wound to the left abdomen. Patient reports drainage from the wound that is purulent. Patient had a previous abscess there before. Patient denies fever or chills. Patient appears nontoxic. Patient has not had any recent antibiotics. Patient takes no routine medications even though being diagnosed with diabetes type 2. Review of Systems Skin/Breast: Reports: non-healing lesions [facility] ED PFS: Medical History (Updated 11/05/22 @ 22:21 by REHAN Mead) DM type 2 (diabetes mellitus, type 2) Obesity Surgical History History of incision and drainage History of tonsillectomy Family History Mother Diabetes Denies family history of Anesthesia complication Bleeding disorder Social History Smoking and tobacco status: former smoker Alcohol intake: never Household members: family Highest education level completed: 11th Grade Physical Exam Const: COMMON NORMALS: alert HENMT: COMMON NORMALS: normocephalic HEAD & SCALP: normocephalic Neck/C-Spine: COMMON NORMALS: full ROM Resp: COMMON NORMALS: normal respiratory effort and clear to auscultation bilaterally AUSCULTATION: clear to auscultation bilaterally Cardio: COMMON NORMALS: regular rate RATE: regular rate Extremity: COMMON NORMALS: normal to inspection Neuro: SENSORIUM/ORIENTATION: Yes alert Skin: LESIONS: lesion noted (Draining abscess left abdomen. No significant surrounding erythema.) Course Vital Signs: Vital signs: Vital Signs Temperature 98.6 F 11/05/22 22:00 Pulse Rate 94 11/05/22 22:00 Respiratory Rate 14 11/05/22 22:00 Blood Pressure 129/77 11/05/22 22:00 Pulse Oximetry 97 11/05/22 22:00 Oxygen Delivery Me thod 11/05/22 22:00 MDM - Wound/Laceration Medical Decision Making Patient comes in with a draining abscess to the left abdominal wall. On exam there is a discolored area of skin with palpable induration and minimal redness. Patient reports drainage from the area. Patient's had a previous abscess there in the past. Respirations are even lungs are clear to auscultation. Vital signs are normal. Differential diagnosis includes cellulitis, abscess, sarcoma. No signs of severe illness is noted at this time. We will start patient on antibiotics clindamycin 600 mg 3 times a day for the next 7 days. Patient does have a history of diabetes but has not been taking his medication routinely. Discussed with the family that this could be the reason why he has recurrent skin wounds and infections due to his poor diabetic control. Recommended follow-up with primary care for further evaluation and initiation of diabetic therapy. Case management was requested to set patient up in 1 week with primary care provider. Patient and family both reported understanding. Discharge Plan Discharge Patient Disposition: Home Clinical Impression: Abscess of skin of abdomen Condition: Stable Prescriptions: New clindamycin HCl 300 mg capsule 600 mg PO TID 7 Days Qty: 42 0RF No Action metformin 500 mg tablet 500 mg PO BID insulin aspart U-100 [Novolog FlexPen U-100 Insulin] 100 unit/mL (3 mL) insulin pen 8 unit SUBCUT TID Qty: 15 3RF Discharge Orders: Discharge ED (Routine); Ordered 11/05/22 Ordered By: Pedro Ding Referrals: Radha Jones DO [Primary Care Provider] - Discharge Diet: Usual diet Discharge Activity: Increase activity as tolerated Patient Instructions: Abscess (ED) Activity Restrictions/Additional Instructions: Take antibiotic as directed. Drink plenty of water and fluids with medication. Follow-up with primary care in 1 week for recheck. Return to ED for worsening symptoms such as fever greater than 100.4, inability to hold fluids down, or new concerns. Case management will contact you regarding follow-up with primary care. Coding Level of Care Code ED [employer]agliding Instructor for Dilma Jaramillo
[2022-11-05] MEDS: clindamycin 150 mg Capsule 600 MG PO (22:23)
--- NOTE | 2022-11-06 10:59 | DCPLANNER ---
Addendum entered by Jo Ann Urena 12/12/22 07:28: Patient had a follow up appointment to establish care with Dr. Pryor at [facility] - patient did attend appointment. Original Note: financial institution branch manager had message to speak with patient to get him established with a primary care physician. financial institution branch manager spoke with patients mother, who stated that she would like patient set up with a primary care physician. financial institution branch manager called [facility], spoke with Kassandra, gave clinic patients information. A follow up appointment was scheduled for Monday, November 14, 2022 at 9:[address] Pryor at [facility]. financial institution branch manager gave patients mother the appointment information.
== END 2022-11-05 22:26 | disposition home or self-care (01) ==
PROVIDERS: Emergency Provider Nurse Practitioner Family; PCP Internal Medicine
DX: L02.211 Cutaneous abscess of abdominal wall (principal); Z79.4 Long term (current) use of insulin; Z79.84 Long term (current) use of oral hypoglycemic drugs; E11.9 Type 2 diabetes mellitus without complications; Z87.891 Personal history of nicotine dependence
CPT/HCPCS: 99283

== ENCOUNTER → 2022-11-14 09:47 | Outpatient (BNVA) | payer BC, MEDICAID, SELFPAY | PROVIDERS: PCP Family Medicine Adult Medicine; Visit Provider Family Medicine Adult Medicine | DX: E66.01 Morbid (severe) obesity due to excess calories (principal); Z68.42 Body mass index [BMI] 45.0-49.9, adult; E11.9 Type 2 diabetes mellitus without complications | CPT/HCPCS: 80053; 83036; 84443; 85025 ==

== ENCOUNTER → 2023-02-05 09:37 | Outpatient (BNVA) | payer BC, MEDICAID, SELFPAY | PROVIDERS: PCP Family Medicine Adult Medicine; Visit Provider Family Medicine Adult Medicine | DX: E11.9 Type 2 diabetes mellitus without complications (principal) | CPT/HCPCS: 83036 ==

== ENCOUNTER → 2023-12-02 13:36 | Outpatient (BNVA) | payer BC, MEDICAID, SELFPAY | PROVIDERS: PCP Family Medicine Adult Medicine; Visit Provider Family Medicine Adult Medicine | DX: E11.9 Type 2 diabetes mellitus without complications (principal); E66.01 Morbid (severe) obesity due to excess calories; Z68.42 Body mass index [BMI] 45.0-49.9, adult | CPT/HCPCS: 80053; 83036 ==

== ENCOUNTER → 2023-12-09 15:06 | Outpatient (BNVA) | payer BC, MEDICAID, SELFPAY | PROVIDERS: PCP Family Medicine Adult Medicine; Visit Provider Thoracic Surgery (Cardiothoracic Vascular Surgery) | DX: I96 Gangrene, not elsewhere classified (principal); L97.822 Non-pressure chronic ulcer of other part of left lower leg with fat layer exposed | CPT/HCPCS: 87070; 87077; 87176; 87186; 87205 ==

== ENCOUNTER → 2023-12-23 14:34 | Outpatient (BNVA) | payer BC, MEDICAID, SELFPAY | PROVIDERS: PCP Family Medicine Adult Medicine; Visit Provider Thoracic Surgery (Cardiothoracic Vascular Surgery) | DX: E11.622 Type 2 diabetes mellitus with other skin ulcer (principal); S81.802A Unspecified open wound, left lower leg, initial encounter; X58.XXXA Exposure to other specified factors, initial encounter | CPT/HCPCS: 87070; 87077; 87186 ==

== ENCOUNTER → 2024-01-27 15:30 | Outpatient (BNVA) | payer BC, MEDICAID, SELFPAY | PROVIDERS: PCP Family Medicine Adult Medicine; Visit Provider Thoracic Surgery (Cardiothoracic Vascular Surgery) | DX: L02.416 Cutaneous abscess of left lower limb (principal) | CPT/HCPCS: 87070; 87077; 87186 ==

== ENCOUNTER → 2024-02-03 16:42 | Outpatient (BNVA) | payer BC, MEDICAID, SELFPAY | PROVIDERS: PCP Family Medicine Adult Medicine; Visit Provider Thoracic Surgery (Cardiothoracic Vascular Surgery) | DX: L02.416 Cutaneous abscess of left lower limb (principal) | CPT/HCPCS: 87070; 87077; 87186 ==

== ENCOUNTER 2024-03-04 08:56 | Outpatient (CLI) | payer BC, MEDICAID, SELFPAY ==
--- NOTE | 2024-03-04 09:30 | CT_ITS ---
WS: [id number] CT LEFT LOWER EXTREMITY, NONCONTRAST HISTORY: Non healing diabetic wound Technique: All CT scans at [facility] use at least one of these dose optimization techniques: automated exposure control; mA and/or kV adjustment per patient size (includes targeted exams where dose is matched to clinical indication); or iterative reconstruction. DLP: 346.46 mGy.cm COMPARISON: None available. 2 soft tissue ulcerations are noted over the distal third of the tibia. The smaller ulceration is low ng the medial distal tibia with a tract extending towards the periosteum. There are a few small foci of air along the tract. This ulceration measures 1.8 x 1.2 cm. This is slightly larger ulcerations al cedric the lateral tibia measuring 2.4 x 1.5 cm and contains air also. The tracts extend close to the pe riosteum. Mild soft tissue edema. No osteomyelitis. CT/CT lower leg LT wo con* [id number] IMPRESSION: 1. There are 2 soft tissue ulcerations with tracts extending through the perio steum of the distal third of the tibia. Each tract contains a small foci of air . On this unenhanced exam there is soft tissue thickening but no definite fluid collection. The air may be related to infection or debridement. 2. No bone destruction or osteomyelitis.
== END 2024-03-04 08:57 | disposition home or self-care (01) ==
LOC: RAD 08:56
PROVIDERS: PCP Family Medicine Adult Medicine; Visit Provider Thoracic Surgery (Cardiothoracic Vascular Surgery)
DX: L97.922 Non-pressure chronic ulcer of unspecified part of left lower leg with fat layer exposed (principal); L03.116 Cellulitis of left lower limb; M79.9 Soft tissue disorder, unspecified
CPT/HCPCS: 73700

== ENCOUNTER → 2024-04-20 15:18 | Outpatient (BNVA) | payer BC, MEDICAID, SELFPAY | PROVIDERS: PCP Family Medicine Adult Medicine; Visit Provider Thoracic Surgery (Cardiothoracic Vascular Surgery) | DX: E11.621 Type 2 diabetes mellitus with foot ulcer (principal); E11.59 Type 2 diabetes mellitus with other circulatory complications | CPT/HCPCS: 87070; 87077; 87176; 87186; 87205 ==

== ENCOUNTER 2025-09-11 12:27 | Inpatient (IN) | payer SELFPAY ==
[2025-09-11] VITALS (38 sets, daily range): BP systolic 100–133; BP diastolic 59–79; PULSE 88–109; RESP 12–29; TEMP 37.1–37.9; O2SAT 91–99; BMI 40.5; BMI 41.3
--- NOTE | 2025-09-11 13:00 | XRR_ITS ---
PROCEDURE INFORMATION: Exam: XR Left Tibia and Fibula Exam date and time: 09/11/2025 1:09 PM Age: 25 years old Clinical indication: Pain; Lower leg; Left; Additional info: Cellulitis, ulcer TECHNIQUE: Imaging protocol: Radiologic exam of the left tibia and fibula. Views: 2 views. COMPARISON: CT lower leg LT wo con* [id number] 03/04/2024 9:18 AM FINDINGS: Bones/joints: Alignment is within normal limits. There is no evidence of acute fracture or dislocation. No focal lytic or sclerotic lesions are seen. Soft tissues: Normal. No subcutaneous emphysema XR/XR tibia fibula LT 2V [id number] IMPRESSION: No acute osseous abnormality
--- NOTE | 2025-09-11 13:02 | XRR_ITS ---
PROCEDURE INFORMATION: Exam: XR Chest Exam date and time: 09/11/2025 1:09 PM Age: 25 years old Clinical indication: Shortness of breath; Additional info: Possible sepsis TECHNIQUE: Imaging protocol: Radiologic exam of the chest. Views: 1 view. COMPARISON: CT neck w con* [id number] 11/29/2019 2:36 PM FINDINGS: Lungs: Unremarkable. No consolidation. Pleural spaces: Unremarkable. No pleural effusion. No pneumothorax. Heart/Mediastinum: Unremarkable. No cardiomegaly. Bones/joints: Unremarkable. XR/XR chest 1V portable [id number] IMPRESSION: No acute findings.
--- NOTE | 2025-09-11 13:15 | ECG_ITS ---
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 Measurements Intervals [place] Rate: 108 P: 27 NH: 151 QRS: 28 QRSD: 79 T: 37 QT: 310 QTc: 416 Interpretive Statements SINUS TACHYCARDIA ABNORMAL RHYTHM ECG No previous ECG available for comparison Electronically Signed On 09-11-2025 17:50:21 COOKING APPLIANCE REPAIR TECHNICIAN by Libia Garcia M.D. [email or web address]
--- NOTE | 2025-09-11 13:15 | ED_ITS ---
Documented by User: ESTEPHANIA Cardenas 09/11/25 16:01 HPI - Extremity Problem 2 General: Chief complaint: Extremity Problem,Nontraumatic Stated complaint: leg infection Source: patient and old records reviewed Mode of arrival: EMS Limitations: no limitations History of Present Illness: Patient is a 25-year-old male with past medical history of morbid obesity, type 2 diabetes, and chronic cellulitis of left lower extremity who presents to the emergency department by ambulance for complaints of continued infection to his left leg. Notes that he has felt nauseous as well, and has had chills and felt feverish at home. He is a noncompliant diabetic, states that sometimes he forgets to take his medications. Fingerstick glucose at bedside is 500. Notes severe pain to the left leg, expanding redness, swelling, and inability to ambulate secondary to his symptoms. He is tachycardic and febrile, chronically ill appearing at time of examination. He has no reports of vomiting. No distal neurovascular deficits. He had previously been seeing wound care last year for evaluation, maintenance, and debridement of the same wound. MD Complaint: extremity pain and extremity swelling Onset (ago): day(s) Pain Consistency: constant Location: left and lower extremity Associated symptoms: Reports fever(s); Deny chest pain Related Data Previous Rx's ?Medication ?Instructions ?Recorded reli glucometer and strips #1 ea 11/14/22 blood-glucose sensor (FreeStyle #2 ea 01/19/24 Sonia 3 Sensor device) blood-glucose,title search manager,cont #1 ea 01/19/24 (FreeStyle Sonia 3 [place]) insulin glargine 100 unit/mL (3 40 unit (0.4 mL) SUBCU T QAM #15 mL 01/19/24 mL) subcutaneous pen (Lantus Solostar U-100 Insulin) Allergies Allergy/AdvReac Type Severity Reaction Status Date / Time No Known Allergies Allergy Verified 05/17/24 07:23 Review of Systems 2 General: Reports: 10 or more systems reviewed and unremarkable except in HPI and below Const: Reports: fever(s) and chills Card: Denies: chest pain Resp: Denies: dyspnea or productive cough GI: Reports: nausea; Denies: abdominal pain, vomiting or diarrhea : Denies: flank pain Musc: Reports: extremity pain, extremity swelling, limited range of motion and other (Left lower extremity warmth and redness); Denies: neck pain, back pain, joint pain, joint swelling, joint redness, joint warmth or muscle weakness Neuro: Denies: headache(s), numbness in extremities or weakness in extremities PFSH ED 2 PFSH: Medical History Cellulitis of leg without foot, left Nonhealing ulcer of left lower leg with fat layer exposed Morbid obesity with BMI of 45.0-49.9, adult DM type 2 (diabetes mellitus, type 2) Neck abscess Surgical History History of incision and drainage History of tonsillectomy Family History Mother Diabetes Denies family history of Anesthesia complication Bleeding disorder Social History Smoking and tobacco/nicotine status: former use of tobacco/nicotine Alcohol intake: never Substance/Drug Use: never Household members: family Highest education level completed: 11th Grade Physical Exam 2 Const: COMMON NORMALS: patient oriented x3 GENERAL APPEARANCE: cooperative ORIENTATION/CONSCIOUSNESS: Yes awake, Yes oriented to person, Yes oriented to place and Yes oriented to time OTHER: Morbidly obese, chronically ill-appearing Resp: COMMON NORMALS: normal respiratory effort, No retractions, No use of accessory muscles and clear to auscultation bilaterally AUSCULTATION: clear to auscultation bilaterally Cardio: COMMON NORMALS: regular rhythm, No clicks present (Cardio), No murmurs present (Cardio) and No rub (Cardio) RATE: tachycardic RHYTHM: regular rhythm GI: COMMON NORMALS: Soft to palpation and non-tender INSPECTION: Yes central obesity AUSCULTATION: Yes normoactive bowel sounds PALPATION: Yes Soft to palpation RECTAL EXAM: Yes deferred Extremity: NARRATIVE EXTREMITY EXAM: Left lower leg with ulcer to distal left lateral sweeney, extensive surrounding cellulitis. Active drainage from the center of the ulcer. Diffuse tender to palpation. Distal neurovascular exam is normal. Neuro: COMMON NORMALS: patient oriented x3, moves all extremities, no focal motor deficits and no sensory deficits noted SENSORIUM/ORIENTATION: Yes oriented to person, Yes oriented to place and Yes oriented to time Course 2 Vital Signs: Vital signs: Vital Signs Temperature 100.3 F H 09/11/25 12:32 Pulse Rate 107 H 09/11/25 15:14 Respiratory Rate 18 09/11/25 15:14 Blood Pressure 129/78 09/11/25 15:14 Pulse Oximetry 93 09/11/25 15:14 Oxygen Delivery Me thod Room Air 09/11/25 16:29 MDM - Extremity (Nontraumatic) Medical Decision Making Patient presented to the emergency department by ambulance for evaluation of wound to left lower extremity that has been chronic in nature but worsening recently. He has poorly controlled type II diabetic, blood sugar on arrival was 500. He is tachycardic and elevated temperature as well, concern for sepsis with the examination of his left lower extremity showing cellulitic ulcerated lesion. Neurovascular exam was intact. He has leukocytosis, elevated ESR and CRP, and lactic acid of 4.0. Blood cultures obtained and then he is subsequently started on IV vancomycin and Zosyn. X-ray of the left lower extremity shows no osteomyelitic obvious lesions, CT lower extremity showing cellulitis but no concerning depth or extension of the wound to indicate necrotizing fasciitis or osteomyelitis at this time. Spoke to Dr. Buckley, he will consult patient in the hospital in case this wound needs debrided. Dr. An is admitting hospitalist, patient will go to the ICU. Dr. Rasheed briefed on this patient's case and will place admit orders. Lab Data 09/11/25 13:53 09/11/25 13:53 Radiology Impressions Tibia/Fibula X-Ray 09/11/25 13:00 IMPRESSION: No acute osseous abnormality Chest X-Ray 09/11/25 13:02 IMPRESSION: No acute findings. Lower Extremity CT 09/11/25 14:59 IMPRESSION: Cellulitis of the distal calf with localized inflammatory changes/phlegmonous tissue along the anteromedial aspect of the distal calf without soft tissue abscess or osteomyelitis Laboratory Results WBC 12.74 10^3/uL (3.29-11.43) H 09/11/25 13:53 RBC 5.01 10^6/uL (3.85-5.65) 09/11/25 13:53 Hgb 12.60 g/dL (11.27-16.99) 09/11/25 13:53 Hct 39.4 % (37-53) 09/11/25 13:53 MCV 78.6 fl (82-101) L 09/11/25 13:53 MCH 25.1 pg (27-33) L 09/11/25 13:53 MCHC 32.0 g/dL (30-55) 09/11/25 13:53 RDW 14.6 % (12.1-15.1) 09/11/25 13:53 Plt Count 106 10^3/cmm (157-399) L 09/11/25 13:53 MPV 11.6 fL (7.4-10.4) H 09/11/25 13:53 Neut % (Auto) 81.4 % 09/11/25 13:53 Lymph % (Auto) 12.6 % 09/11/25 13:53 Sanders % (Auto) 4.7 % 09/11/25 13:53 Eos % (Auto) 0.0 % 09/11/25 13:53 Baso % (Auto) 0.3 % 09/11/25 13:53 Neut # (Auto) 10.37 10^3/uL (1.8-7.7) H 09/11/25 13:53 Lymph # (Auto) 1.6 10^3/uL (0.8-4.8) 09/11/25 13:53 Sanders # (Auto) 0.6 10^3/uL (0.2-0.9) 09/11/25 13:53 Eos # (Auto) 0.0 10^3/uL (0.0-0.8) 09/11/25 13:53 Baso # (Auto) 0.0 10^3/uL (0.0-0.1) 09/11/25 13:53 Nucleated RBC % (auto) 0 % 09/11/25 13:53 Nucleated RBCs # 0.0 /100WBC 09/11/25 13:53 ESR 88 mm/hr (0-10) H 09/11/25 13:53 Specimen Type Arterial 09/11/25 15:22 Sample Site Radial, right 09/11/25 15:22 ABG pH 7.42 (7.35-7.45) 09/11/25 15:22 ABG pCO2 34.8 mmHg (35-45) L 09/11/25 15:22 ABG pO2 67.1 mmHg (80.0-100.0) L 09/11/25 15:22 ABG PO2/FiO2 Ratio 319 09/11/25 15:22 ABG HCO3 22.7 mmol/L (22-26) 09/11/25 15:22 ABG O2 Saturation 95.1 09/11/25 15:22 ABG Base Excess -1.3 mmol/L (-2.0-2.0) 09/11/25 15:22 Ramon Test Pos 09/11/25 15:22 A-a O2 Gradient 5.0 mmHg (5-10) 09/11/25 15:22 Hematocrit 36.1 % (42-52) L 09/11/25 15:22 Hgb O2 Saturation 93.0 % (95-100) L 09/11/25 15:22 Carboxyhemoglobin 1.4 %THgb (0.4-20.1) 09/11/25 15:22 Methemoglobin 0.8 % (0.4-1.5) 09/11/25 15:22 Total Hemoglobin 11.8 g/dL (14-18) L 09/11/25 15:22 Sodium 129.0 mmol/L (131-143) L 09/11/25 15:22 Potassium 3.5 mmol/L (3.5-5.0) 09/11/25 15:22 Glucose 389.0 mg/dL (70-115) H 09/11/25 15:22 Ionized Calcium 1.0 mmol/L (1.1-1.4) L 09/11/25 15:22 O2 Delivery Device Room air 09/11/25 15:22 FiO2 21.0 % 09/11/25 15:[address] Judge ID glc 09/11/25 15:22 Sodium 127 mmol/L (136-145) L 09/11/25 13:53 Potassium 4.3 mmol/L (3.5-5.1) 09/11/25 13:53 Chloride 92 mmol/L (98-107) L 09/11/25 13:53 Carbon Dioxide 23 mmol/L (22-29) 09/11/25 13:53 Anion Gap 16.3 (5-19) 09/11/25 13:53 BUN 23 mg/dL (6-20) H 09/11/25 13:53 Creatinine 0.9 mg/dL (0.7-1.2) 09/11/25 13:53 GFR Calculation 102.0 mL/min (90-130) 09/11/25 13:53 Glucose 430 mg/dL (65-115) H 09/11/25 13:53 POC Glucose 460 mg/dL (70-110) H 09/11/25 12:50 Calculated Osmolality 286 mOsm/kg (285-295) 09/11/25 13:53 Lactic Acid 4.0 mmol/L (0.5-2.2) H 09/11/25 13:53 Calcium 8.1 mg/dL (8.5-10.5) L 09/11/25 13:53 Total Bilirubin 1.2 mg/dL (0.15-1.2) 09/11/25 13:53 AST 105 U/L (0-40) H 09/11/25 13:53 ALT 52 U/L (0-41) H 09/11/25 13:53 Alkaline Phosphatase 75 U/L (40-130) 09/11/25 13:53 C-Reactive Protein 346.7 mg/L (0.0-4.9) H 09/11/25 13:53 Total Protein 7.6 g/dL (6.6-8.7) 09/11/25 13:53 Albumin 3.1 g/dL (3.5-5.2) L 09/11/25 13:53 Globulin 4.5 g/dL (1.3-4.6) 09/11/25 13:53 All radiology interpretation(s) finalized by discharge Discharge Plan Discharge Patient Disposition: Admitted As Inpatient Admit Provider: Srini Shultz Clinical Impression: Cellulitis of leg without foot, left Sepsis Qualifiers: Sepsis type: sepsis due to unspecified organism Sepsis acute organ dysfunction status: unspecified Qualified Code(s): A41.9 - Sepsis, unspecified organism DM type 2 (diabetes mellitus, type 2) Qualifiers: Diabetes mellitus [facility] insulin use: without parts counterman use Diabetes mellitus complication status: with circulatory complication Diabetes mellitus complication detail: with other circulatory complications Qualified Code(s): E 11.59 - Type 2 diabetes mellitus with other circulatory complications Condition: Stable Coding Level of Care Code ED College Sports Assistant for g Fwd Documented by User: Dante Rasheed MD 09/11/25 16:35 HPI - Extremity Problem 2 General: Chief complaint: Extremity Problem,Nontraumatic Stated complaint: leg infection Related Data Previous Rx's ?Medication ?Instructions ?Recorded reli glucometer and strips #1 ea 11/14/22 blood-glucose sensor (FreeStyle #2 ea 01/19/24 Sonia 3 Sensor device) blood-glucose,title search manager,cont #1 ea 01/19/24 (FreeStyle Sonia 3 [place]) insulin glargine 100 unit/mL (3 40 unit (0.4 mL) SUBCU T QAM #15 mL 01/19/24 mL) subcutaneous pen (Lantus Solostar U-100 Insulin) Allergies Allergy/AdvReac Type Severity Reaction Status Date / Time No Known Allergies Allergy Verified 05/17/24 07:23 PFSH ED 2 PFSH: Medical History Cellulitis of leg without foot, left Nonhealing ulcer of left lower leg with fat layer exposed Morbid obesity with BMI of 45.0-49.9, adult DM type 2 (diabetes mellitus, type 2) Neck abscess Surgical History History of incision and drainage History of tonsillectomy Family History Mother Diabetes Denies family history of Anesthesia complication Bleeding disorder Social History Smoking and tobacco/nicotine status: former use of tobacco/nicotine Alcohol intake: never Substance/Drug Use: never Household members: family Highest education level completed: 11th Grade Course 2 Vital Signs: Vital signs: Vital Signs Temperature 100.3 F H 09/11/25 12:32 Pulse Rate 107 H 09/11/25 15:14 Respiratory Rate 18 09/11/25 15:14 Blood Pressure 129/78 09/11/25 15:14 Pulse Oximetry 93 09/11/25 15:14 Oxygen Delivery Me thod Room Air 09/11/25 16:29 MDM - Extremity (Nontraumatic) Medical Decision Making Patient presented to the emergency department by ambulance for evaluation of wound to left lower extremity that has been chronic in nature but worsening recently. He has poorly controlled type II diabetic, blood sugar on arrival was 500. He is tachycardic and elevated temperature as well, concern for sepsis with the examination of his left lower extremity showing cellulitic ulcerated lesion. Neurovascular exam was intact. He has leukocytosis, elevated ESR and CRP, and lactic acid of 4.0. Blood cultures obtained and then he is subsequently started on IV vancomycin and Zosyn. X-ray of the left lower extremity shows no osteomyelitic obvious lesions, CT lower extremity showing cellulitis but no concerning depth or extension of the wound to indicate necrotizing fasciitis or osteomyelitis at this time. Spoke to Dr. Buckley, he will consult patient in the hospital in case this wound needs debrided. Dr. An is admitting hospitalist, patient will go to the ICU. Dr. Rasheed briefed on this patient's case and will place admit orders. I saw patient with above midlevel agree with his history and physical. Patient presents here with cellulitis with sepsis he did receive sepsis bolus along with IV antibiotics. Will admit to ICU to hospitalist. Lab Data 09/11/25 13:53 09/11/25 13:53 Radiology Impressions Tibia/Fibula X-Ray 09/11/25 13:00 IMPRESSION: No acute osseous abnormality Chest X-Ray 09/11/25 13:02 IMPRESSION: No acute findings. Lower Extremity CT 09/11/25 14:59 IMPRESSION: Cellulitis of the distal calf with localized inflammatory changes/phlegmonous tissue along the anteromedial aspect of the distal calf without soft tissue abscess or osteomyelitis Laboratory Results WBC 12.74 10^3/uL (3.29-11.43) H 09/11/25 13:53 RBC 5.01 10^6/uL (3.85-5.65) 09/11/25 13:53 Hgb 12.60 g/dL (11.27-16.99) 09/11/25 13:53 Hct 39.4 % (37-53) 09/11/25 13:53 MCV 78.6 fl (82-101) L 09/11/25 13:53 MCH 25.1 pg (27-33) L 09/11/25 13:53 MCHC 32.0 g/dL (30-55) 09/11/25 13:53 RDW 14.6 % (12.1-15.1) 09/11/25 13:53 Plt Count 106 10^3/cmm (157-399) L 09/11/25 13:53 MPV 11.6 fL (7.4-10.4) H 09/11/25 13:53 Neut % (Auto) 81.4 % 09/11/25 13:53 Lymph % (Auto) 12.6 % 09/11/25 13:53 Sanders % (Auto) 4.7 % 09/11/25 13:53 Eos % (Auto) 0.0 % 09/11/25 13:53 Baso % (Auto) 0.3 % 09/11/25 13:53 Neut # (Auto) 10.37 10^3/uL (1.8-7.7) H 09/11/25 13:53 Lymph # (Auto) 1.6 10^3/uL (0.8-4.8) 09/11/25 13:53 Sanders # (Auto) 0.6 10^3/uL (0.2-0.9) 09/11/25 13:53 Eos # (Auto) 0.0 10^3/uL (0.0-0.8) 09/11/25 13:53 Baso # (Auto) 0.0 10^3/uL (0.0-0.1) 09/11/25 13:53 Nucleated RBC % (auto) 0 % 09/11/25 13:53 Nucleated RBCs # 0.0 /100WBC 09/11/25 13:53 ESR 88 mm/hr (0-10) H 09/11/25 13:53 Specimen Type Arterial 09/11/25 15:22 Sample Site Radial, right 09/11/25 15:22 ABG pH 7.42 (7.35-7.45) 09/11/25 15:22 ABG pCO2 34.8 mmHg (35-45) L 09/11/25 15:22 ABG pO2 67.1 mmHg (80.0-100.0) L 09/11/25 15:22 ABG PO2/FiO2 Ratio 319 09/11/25 15:22 ABG HCO3 22.7 mmol/L (22-26) 09/11/25 15:22 ABG O2 Saturation 95.1 09/11/25 15:22 ABG Base Excess -1.3 mmol/L (-2.0-2.0) 09/11/25 15:22 Ramon Test Pos 09/11/25 15:22 A-a O2 Gradient 5.0 mmHg (5-10) 09/11/25 15:22 Hematocrit 36.1 % (42-52) L 09/11/25 15:22 Hgb O2 Saturation 93.0 % (95-100) L 09/11/25 15:22 Carboxyhemoglobin 1.4 %THgb (0.4-20.1) 09/11/25 15:22 Methemoglobin 0.8 % (0.4-1.5) 09/11/25 15:22 Total Hemoglobin 11.8 g/dL (14-18) L 09/11/25 15:22 Sodium 129.0 mmol/L (131-143) L 09/11/25 15:22 Potassium 3.5 mmol/L (3.5-5.0) 09/11/25 15:22 Glucose 389.0 mg/dL (70-115) H 09/11/25 15:22 Ionized Calcium 1.0 mmol/L (1.1-1.4) L 09/11/25 15:22 O2 Delivery Device Room air 09/11/25 15:22 FiO2 21.0 % 09/11/25 15:[address] Judge ID glc 09/11/25 15:22 Sodium 127 mmol/L (136-145) L 09/11/25 13:53 Potassium 4.3 mmol/L (3.5-5.1) 09/11/25 13:53 Chloride 92 mmol/L (98-107) L 09/11/25 13:53 Carbon Dioxide 23 mmol/L (22-29) 09/11/25 13:53 Anion Gap 16.3 (5-19) 09/11/25 13:53 BUN 23 mg/dL (6-20) H 09/11/25 13:53 Creatinine 0.9 mg/dL (0.7-1.2) 09/11/25 13:53 GFR Calculation 102.0 mL/min (90-130) 09/11/25 13:53 Glucose 430 mg/dL (65-115) H 09/11/25 13:53 POC Glucose 460 mg/dL (70-110) H 09/11/25 12:50 Calculated Osmolality 286 mOsm/kg (285-295) 09/11/25 13:53 Lactic Acid 4.0 mmol/L (0.5-2.2) H 09/11/25 13:53 Calcium 8.1 mg/dL (8.5-10.5) L 09/11/25 13:53 Total Bilirubin 1.2 mg/dL (0.15-1.2) 09/11/25 13:53 AST 105 U/L (0-40) H 09/11/25 13:53 ALT 52 U/L (0-41) H 09/11/25 13:53 Alkaline Phosphatase 75 U/L (40-130) 09/11/25 13:53 C-Reactive Protein 346.7 mg/L (0.0-4.9) H 09/11/25 13:53 Total Protein 7.6 g/dL (6.6-8.7) 09/11/25 13:53 Albumin 3.1 g/dL (3.5-5.2) L 09/11/25 13:53 Globulin 4.5 g/dL (1.3-4.6) 09/11/25 13:53 Discharge Plan Discharge Patient Disposition: Admitted As Inpatient Admit Provider: Srini Shultz Clinical Impression: Cellulitis of leg without foot, left Sepsis Qualifiers: Sepsis type: sepsis due to unspecified organism Sepsis acute organ dysfunction status: unspecified Qualified Code(s): A41.9 - Sepsis, unspecified organism DM type 2 (diabetes mellitus, type 2) Qualifiers: Diabetes mellitus [facility] insulin use: without [facility] use Diabetes mellitus complication status: with circulatory complication Diabetes mellitus complication detail: with other circulatory complications Qualified Code(s): E 11.59 - Type 2 diabetes mellitus with other circulatory complications Condition: Stable Coding Level of Care Code ED College Sports Assistant for Dilma Jaramillo
[2025-09-11] MEDS: ondansetron 2 mg/ML SDV 2 mL 4 MG IVP (13:34)
[2025-09-11] MEDS: morphine 4 mg/mL SDV 1 mL IVP (13:34)
[2025-09-11 14:08] LABS: Hematocrit 39.4 % (37-53); Hemoglobin 12.60 g/dL (11.27-16.99); Mean Corpuscular HGB Conc 32.0 g/dL (30-55); Mean Corpuscular Hemoglobin 25.1 pg (27-33); Mean Corpuscular Volume 78.6 fl (82-101); Nucleated Red Blood Cells % 0 %; Platelet Count 106 10^3/cmm (157-399); Red Blood Count 5.01 10^6/uL (3.85-5.65); White Blood Count 12.74 10^3/uL (3.29-11.43)
--- NOTE | 2025-09-11 14:08 | PC.PHAR ---
[facility] [place] staff says pt has not filled anything yet this year. Last insulin filled was 01/19/2024. No other diabetic medications found.
[2025-09-11 14:26] LABS: Alanine Aminotransferase 52 U/L (0-41); Albumin Level 3.1 g/dL (3.5-5.2); Alkaline Phosphatase 75 U/L (40-130); Anion Gap 16.3 (5-19); Aspartate Amino Transferase 105 U/L (0-40); Blood Urea Nitrogen 23 mg/dL (6-20); Calcium 8.1 mg/dL (8.5-10.5); Carbon Dioxide 23 mmol/L (22-29); Chloride 92 mmol/L (98-107); Creatinine Clr Calc Pharmacy 177.3502; Globulin 4.5 g/dL (1.3-4.6); Glucose 430 mg/dL (65-115); Osmolality Calculated 286 mOsm/kg (285-295); Potassium 4.3 mmol/L (3.5-5.1); Sodium 127 mmol/L (136-145); Total Protein 7.6 g/dL (6.6-8.7)
[2025-09-11 14:28] LABS: Lactic Sepsis W/Reflex 4.0 mmol/L (0.5-2.2)
[2025-09-11 14:32] LABS: Slide Review Slide Review Perform
[2025-09-11] MEDS: piperacillin-tazobactam 3.375 GM in sodium chloride 0.9% (plus) 50 ML IV ×2 (14:57→22:14)
--- NOTE | 2025-09-11 14:59 | CTR_ITS ---
PROCEDURE INFORMATION: Exam: CT Left Lower Extremity With Contrast, Leg Exam date and time: 09/11/2025 3:11 PM Age: 25 years old Clinical indication: Swelling, leg or foot; Additional info: Lower leg cellulitis TECHNIQUE: Imaging protocol: CT of the left lower extremity with intravenous contrast was performed. Exam focused on the lower leg. Radiation optimization: All CT scans at this facility use at least one of these dose optimization techniques: automated exposure control; mA and/or kV adjustment per patient size (includes targeted exams where dose is matched to clinical indication); or iterative reconstruction. Contrast material: [id number]; Contrast volume: 100 ml; Contrast route: INTRAVENOUS (IV); COMPARISON: CT lower leg LT wo con* [id number] 03/04/2024 9:18 AM RADIATION DOSE METRICS: Total DLP (mGy-cm): 702.38 FINDINGS: Bones/joints: No areas of cortical destruction or abnormal periosteal reaction. No acute fracture or dislocation Soft tissues: There is [id number] skin thickening and subcutaneous stranding of the anterior aspect of the lower calf. There are 2 focal areas of soft tissue thickening within the subcutaneous fat extending deep from the skin surface along the anterior and medial aspects of the distal tibia. No discrete drainable abscess. No subcutaneous emphysema. CT/CT lower leg LT w con [id number] IMPRESSION: Cellulitis of the distal calf with localized inflammatory changes/phlegmonous tissue along the anteromedial aspect of the distal calf without soft tissue abscess or osteomyelitis
[2025-09-11] MEDS: iohexol 350 mg/mL 500 mL Btl (per mL) IV (15:18)
[2025-09-11 15:35] LABS: ABG PCO2 34.8 mmHg (35-45); ABG PH Result 7.42 (7.35-7.45); Alveolar-Arterial Oxygen Gradi 5.0 mmHg (5-10); Arterial Blood Gas Hematocrit 36.1 % (42-52); Blood Gas Allen Test Pos; Blood Gas Operator Identificat glc; Blood Gas Sample Site Radial, right; Blood Gas Sample Type Arterial; Carboxyhemoglobin 1.4 %THgb (0.4-20.1); Glucose Level-ABG 389.0 mg/dL (70-115); HCO3 ABG 22.7 mmol/L (22-26); Ionized Calcium Level - ABG 1.0 mmol/L (1.1-1.4); Methemoglobin 0.8 % (0.4-1.5); Oxygen Saturation ABG 95.1; PO2 ABG 67.1 mmHg (80.0-100.0); PO2 FiO2 Ratio Arterial Blood 319; Potassium Level - ABG 3.5 mmol/L (3.5-5.0); Sodium Level - ABG 129.0 mmol/L (131-143)
--- NOTE | 2025-09-11 15:41 | P.HP_ITS ---
Documented by User: Annita Powers NP 09/11/25 18:03 Providers/Chief Complaint 2 Admitting Physician: Srini Shultz MD Primary Care Provider: Geoffrey Pryor MD Chief Complaint: leg infection History of Present Illness Oliver Humphreys is a 25 year old male w/ pmhx of DM2, morbid obesity, hyperlipidemia, and chronic cellulitis of LLE presents to ED w/ c/o continued infection to left leg. Patient to be admitted to hospital services for further medical management of sepsis, cellulitis. Patient resting in bed on room air, no family members noted to be at bedside during my evaluation. Patient states he started having fever and chills on 09/08 with associated signs/symptoms of nausea, and severe pain to left lower extremity that he reports is hot to the touch. Patient states he has not been able to eat in a few days due to nausea. Patient reports frequently forgetting to take his diabetic medications. Patient states he was following wound care previously for chronic left lower leg non-healing ulcer, last visit 06/11. Patient reports that the left lower leg ulcer was closed until 09/08. Patient is unable to recall specific event/injury that reopened wound, but states, I might have scratched it. Patient denies exposure to animal bites, immersion injury, changes in bowel/urinary habits, and recent medication changes. While in the ED a CBC, CMP were collected, reviewed, and results as follows: WBC: 12.7, Neut 10.4, ESR 88, lactic acid 4, CRP 346.7, plt 106, Na 127, Food Products Tester 0.9, BUN 23, AST 35, ALT 52. CXR was taken and reviewed see imaging below. A EKG was obtained, reviewed, and results as followed: While in ED patient received the following medications: Sepsis bolus, IV vancomycin, IV Zosyn, IVP Zofran 4 mg, IVP morphine 4 mg, Tylenol 1000 mg po. Review of Systems 2 Const: Reports: fever(s) and chills ENMT: Denies: odynophagia, mouth pain or nasal congestion Card: Reports: palpitations Resp: Denies: dyspnea or productive cough GI: Reports: nausea and constipation; Denies: abdominal pain, vomiting or diarrhea Musc: Reports: extremity pain (LLE) and extremity swelling (LLE) Skin/Breast: Reports: erythema (LLE), skin pain (LLE) and skin tenderness (LLE) Neuro: Denies: headache(s), numbness in extremities or sensory changes Medications/Allergies Home Medications ?Medication ?Instructions ?Recorded ?Confirmed ?Last Taken ?Type reli glucometer and strips #1 ea 11/14/22 09/11/25 Unk nown Rx blood-glucose sensor (FreeStyle #2 ea 01/19/24 5 Unknown Rx Sonia 3 Sensor device) blood-glucose,restaurant host/hostess,cont #1 ea 01/19/24 09/11/25 Un known Rx (FreeStyle Sonia 3 [place]) insulin glargine 100 unit/mL (3 40 unit (0.4 mL) SUBCU T QAM #15 mL 01/19/24 09/11/25 Unknown Rx mL) subcutaneous pen (Lantus Solostar U-100 Insulin) Allergies Allergy/AdvReac Type Severity Reaction Status Date / Time No Known Allergies Allergy Verified 05/17/24 07:23 PFSH Acute 2 PFSH: Medical History (Updated 09/11/25 @ 17:47 by Annita Powers NP) Cellulitis of leg without foot, left Nonhealing ulcer of left lower leg with fat layer exposed Morbid obesity with BMI of 45.0-49.9, adult DM type 2 (diabetes mellitus, type 2) Neck abscess Surgical History History of incision and drainage History of tonsillectomy Family History Mother Diabetes Denies family history of Anesthesia complication Bleeding disorder Social History Smoking and tobacco/nicotine status: former use of tobacco/nicotine Alcohol intake: never Substance/Drug Use: never Household members: family Highest education level completed: 11th Grade Vitals/I&O/Wt Last Vital Signs Temp 100.3 F H 09/11/25 12:32 Pulse 107 H 09/11/25 15:14 Resp 18 09/11/25 15:14 BP 129/78 09/11/25 15:14 Pulse Ox 93 09/11/25 15:14 O2 Del Method Room Air 09/11/25 12:32 09/11/25 09/11/25 09/11/25 06:59 14:59 22:59 Intake Total 2327 / 2328 Balance 2327 / 2328 Weight last 48 hrs Weight 135.624 kg Physical Exam 2 Narrative: General: Alert and oriented, lying comfortably without any distress HEENT: Normocephalic, atraumatic, white coating over tongue and cheeks present. Cardio: NSR, normal S1-S2 without any murmurs, rubs, or gallops and JVD normal Respiratory: normal vascular breathing on auscultation without any wheezes, stridor, rhonchi GI: Abdomen soft, nontender, nondistended, normoactive bowel sounds present all 4 quadrants, Neuro: intact cranial nerves motor and sensory and cerebellar/coordination function without any focal neurological deficit Behavior: Appropriate and cooperative Extremities: Localized skin erhythema, warmth, tenderness and edema present to left lower extremity with open wound. Quick SOFA Score: Respiratory Rate: 16 Blood Pressure: 111/64 Carson Coma Scale: 15 qSOFA Score: 0 If qSOFA score 2 or greater, continue: PaO2/FiO2 Ratio (mmHg): 319 Blood Pressure Mean: 95 Bilirubin (mg/dl): 1.2 Platelets (x10?/ml): 106 C reatinine (mg/dl): 0.9 SOFA Score: 3 Evaluation: Current stage of sepsis: severe sepsis Sepsis stage criteria used: [facility] Sep-1 and Sepsis-3 Crystalloid fluids: 30 mL/kg crystalloid fluids ordered and initiated within 3 hours Focused Exam: Vital signs: Temp Pulse Resp BP Pulse Ox O2 Del Method 09/11/25 15:14 107 H 18 129/78 93 09/11/25 13:48 109 H 16 133/79 92 09/11/25 12:32 100.3 F H 109 H 16 121/78 99 Room Air Capillary refill: < 3 Seconds Skin exam: pallor not present, not diaphoretic and no mottling Date exam was performed: 09/11/25 Time exam was performed: 17:31 2 Sepsis Screen No Definite Risk Today, 15:14 Respiratory Rate, (12 - 18) 16 breaths/min Today, 17:00 Blood Pressure 111/64 mmHg Today, 17:00 Diana Coma Scale Score 15 Today, 16:29 Quick SOFA Score 0 Today, 17:23 SOFA Score: 2 ABG PO2/FiO2 Ratio 319 Today, 15:22 Diana Coma Scale Score 15 Today, 16:29 Blood Pressure Mean 95 mmHg Today, 15:14 Total Bilirubin, (0.15-1.2) 1.2 mg/dL Today, 13:53 Platelet Count, (157-399) 106 10^3/cmm L Today, 13:53 Creatinine, (0.7-1.2) 0.9 mg/dL Today, 13:53 SOFA Score 3 Today, 17:23 Data 09/11/25 13:53 09/11/25 13:53 Other Labs: 09/11: Lower extremity CT reviewed and results as follows: Cellulitis of the distal calf with localized inflammatory changes/phlegmonous tissue along the anteromedial aspect of the distal calf without soft tissue abscess or osteomyelitis 09/11: Tibia/Fibula XR reviewed and results as follows: No acute osseous abnormality 09/11: CRX reviewed and results as follows: No acute findings. Micro: Microbiology 09/11/25 13:54 Blood Culture - Preliminary Blood SPECIMEN COLLECTED 09/11/25 13:53 Blood Culture - Preliminary Blood SPECIMEN COLLECTED A&P Assessment and plan 1. Sepsis: 2. Cellulitis of leg without foot, left: 3. DM type 2 (diabetes mellitus, type 2): 4. Oral harley: 5. Hyperlipemia, mixed: Plan: Sepsis, Cellulitis Nonhealing ulcer of left lower leg ? See imaging as above ? Hemodynamically stable currently, V/S q2h ? Hx of MSSA, 11/2019 ? Blood cultures obtained, pending ? Received sepsis bolus in ED, continue IV fluid hydration on admission. ? Pending general surgical consultation. ER provider consulted Dr Buckley. ? Clear liquid consistent carbohydrate diet ? Continue IV broad-spectrum abx of vancomycin, Zosyn. ? Continue IVF NS 125ml/hr ? CBC, CMP, Mag, lactic labs ordered. ? Replace electrolytes as indicated. ? Pain management with IVP morphine 2 mg q4h, hydrocodone 5-325 PO q4h ? PT/OT on board DM2 ? Noncompliant diabetic, forgets to take his medication ? A1c ordered, pending ? Elevated blood glucose on admission ? Blood glucose monitoring, ACHS ? Low regimen insulin sliding scale ? Carbohydrate consistent diet, post surgery. ? Hypoglycemia protocol ordered Oral Harley ? Nystatin 500,000 unit ordered. Hyperlipidemia ? Lipid panel ordered, pending. CODE STATUS: Full code GI prophylaxis: IVP Protonix 40 mg dly DVT prophylaxis: SCDs, Lovenox sub q PDMP PDMP Reviewed: Not Reviewed Coding Level of Care Code 12770 Diagnoses Sepsis A41.9 Hyperlipemia, mixed E78.2 Cellulitis of leg without foot, left L03.116 DM type 2 (diabetes mellitus, type 2) E11.9 Oral harley B37.0 Documented by User: Yasmine Biswas NP 09/11/25 18:10 Providers/Chief Complaint 2 Chief Complaint: leg infection History of Present Illness Oliver Humphreys is a 25 year old male w/ pmhx of DM2, morbid obesity, hyperlipidemia, and chronic cellulitis of LLE presents to ED w/ c/o continued infection to left leg. Patient to be admitted to hospital services for further medical management of sepsis, cellulitis. Patient resting in bed on room air, no family members noted to be at bedside during my evaluation. Patient states he started having fever and chills on 09/08 with associated signs/symptoms of nausea, and severe pain to left lower extremity that he reports is hot to the touch. Patient states he has not been able to eat in a few days due to nausea. Patient reports frequently forgetting to take his diabetic medications. Patient states he was following wound care previously for chronic left lower leg non-healing ulcer, last visit 06/11. Patient reports that the left lower leg ulcer was closed until 09/08. Patient is unable to recall specific event/injury that reopened wound, but states, I might have scratched it. Patient denies exposure to animal bites, immersion injury, changes in bowel/urinary habits, and recent medication changes. OF note: Patient's parents at bedside post evaluation stating they make patient's medical decisions. Will work with case management on coordination with noel. While in the ED a CBC, CMP were collected, reviewed, and results as follows: WBC: 12.7, Neut 10.4, ESR 88, lactic acid 4, CRP 346.7, plt 106, Na 127, Food Products Tester 0.9, BUN 23, AST 35, ALT 52. CXR was taken and reviewed see imaging below. A EKG was obtained, reviewed, and results as followed: While in ED patient received the following medications: Sepsis bolus, IV vancomycin, IV Zosyn, IVP Zofran 4 mg, IVP morphine 4 mg, Tylenol 1000 mg po. Medications/Allergies Home Medications ?Medication ?Instructions ?Recorded ?Confirmed ?Last Taken ?Type reli glucometer and strips #1 ea 11/14/22 09/11/25 Unk nown Rx blood-glucose sensor (FreeStyle #2 ea 01/19/24 5 Unknown Rx Sonia 3 Sensor device) blood-glucose,restaurant host/hostess,cont #1 ea 01/19/24 09/11/25 Un known Rx (FreeStyle Sonia 3 [place]) insulin glargine 100 unit/mL (3 40 unit (0.4 mL) SUBCU T QAM #15 mL 01/19/24 09/11/25 Unknown Rx mL) subcutaneous pen (Lantus Solostar U-100 Insulin) Allergies Allergy/AdvReac Type Severity Reaction Status Date / Time No Known Allergies Allergy Verified 05/17/24 07:23 PFSH Acute 2 PFSH: Medical History (Updated 09/11/25 @ 17:47 by Annita Powers NP) Cellulitis of leg without foot, left Nonhealing ulcer of left lower leg with fat layer exposed Morbid obesity with BMI of 45.0-49.9, adult DM type 2 (diabetes mellitus, type 2) Neck abscess Surgical History History of incision and drainage History of tonsillectomy Family History Mother Diabetes Denies family history of Anesthesia complication Bleeding disorder Social History Smoking and tobacco/nicotine status: former use of tobacco/nicotine Alcohol intake: never Substance/Drug Use: never Household members: family Highest education level completed: 11th Grade Physical Exam 2 Quick SOFA Score: Respiratory Rate: 16 Blood Pressure: 111/64 Diana Coma Scale: 15 qSOFA Score: 0 If qSOFA score 2 or greater, continue: PaO2/FiO2 Ratio (mmHg): 319 Blood Pressure Mean: 95 Bilirubin (mg/dl): 1.2 Platelets (x10?/ml): 106 C reatinine (mg/dl): 0.9 SOFA Score: 3 Evaluation: Sepsis stage criteria used: [facility] Sep-1 and Sepsis-3 Focused Exam: Date exam was performed: 09/11/25 Time exam was performed: 1 8:05 2 Sepsis Screen No Definite Risk Today, 15:14 Respiratory Rate, (12 - 18) 16 breaths/min Today, 17:00 Blood Pressure 111/64 mmHg Today, 17:00 Carson Coma Scale Score 15 Today, 16:29 Quick SOFA Score 0 Today, 17:23 SOFA Score: 2 ABG PO2/FiO2 Ratio 319 Today, 15:22 Diana Coma Scale Score 15 Today, 16:29 Blood Pressure Mean 95 mmHg Today, 15:14 Total Bilirubin, (0.15-1.2) 1.2 mg/dL Today, 13:53 Platelet Count, (157-399) 106 10^3/cmm L Today, 13:53 Creatinine, (0.7-1.2) 0.9 mg/dL Today, 13:53 SOFA Score 3 Today, 17:23 Data 09/11/25 13:53 09/11/25 13:53 A&P Assessment and plan 1. Sepsis: 2. Cellulitis of leg without foot, left: 3. DM type 2 (diabetes mellitus, type 2): 4. Oral harley: 5. Hyperlipemia, mixed: Plan: Sepsis, Cellulitis Nonhealing ulcer of left lower leg ? See imaging as above ? Hemodynamically stable currently, V/S q2h ? Hx of MSSA, 11/2019 ? Blood cultures obtained, pending ? Received sepsis bolus in ED, continue IV fluid hydration on admission. ? Pending general surgical consultation. ER provider consulted Dr Buckley. ? Clear liquid consistent carbohydrate diet ? Continue IV broad-spectrum abx of vancomycin, Zosyn. ? Continue IVF NS 125ml/hr ? CBC, CMP, Mag, lactic labs ordered. ? Replace electrolytes as indicated. ? Pain management with IVP morphine 2 mg q4h, hydrocodone 5-325 PO q4h ? PT/OT on board DM2 ? Noncompliant diabetic, forgets to take his medication ? A1c ordered, pending ? Elevated blood glucose on admission ? Blood glucose monitoring, ACHS ? Low regimen insulin sliding scale ? Carbohydrate consistent diet, post surgery. ? Hypoglycemia protocol ordered Oral Harley ? Nystatin 500,000 unit ordered. Hyperlipidemia ? Lipid panel ordered, pending. Intellectual Disability - Parent's state that they make medical decisions - Coordinate with Case Management on appropriate documentation and discharge planning CODE STATUS: Full code GI prophylaxis: IVP Protonix 40 mg dly DVT prophylaxis: SCDs, Lovenox sub q PDMP PDMP Reviewed: Not Reviewed Attestations 2 Medical Necessity Statement*: Requiring inpatient hospitalization crossing 2 midnights due to severity of illness, sepsis, cellulitis left lower extremity necessitating surgical consultation and medical management, complex medical management. and High Time for a total of 78 minutes, includes reviewing past or interval history, examining/interviewing patient, placing orders, counseling patient/family/other support, updating patient/family/other support, discussing plan of care with staff, communicating with other healthcare providers, documenting encounter and coordinating care Diagnoses Sepsis A41.9 Hyperlipemia, mixed E78.2 Cellulitis of leg without foot, left L03.116 DM type 2 (diabetes mellitus, type 2) E11.9 Oral harley B37.0
[2025-09-11 15:47] LABS: Reflex Lactate Order REFLEX LACTIC ORDERD
[2025-09-11 17:21] LABS: Lactic Sepsis W/Reflex 1.8 mmol/L (0.5-2.2)
--- NOTE | 2025-09-11 17:25 | P.PHAVANC_ITS ---
Vancomycin Goal - Goal Vancomycin Goal:: 15-20 mg/L Vancomycin Indication:: Other (SEPSIS) - Therapy Current therapy:: Pip/Tazo Day of therpy:: Day []of [] . Actual body weight (kg): 305 lb - Data Labs: WBC 12.74 10^3/uL (3.29-11.43) H 09/11/25 13:53 RBC 5.01 10^6/uL (3.85-5.65) 09/11/25 13:53 Hgb 12.60 g/dL (11.27-16.99) 09/11/25 13:53 Hct 39.4 % (37-53) 09/11/25 13:53 MCV 78.6 fl (82-101) L 09/11/25 13:53 MCH 25.1 pg (27-33) L 09/11/25 13:53 MCHC 32.0 g/dL (30-55) 09/11/25 13:53 RDW 14.6 % (12.1-15.1) 09/11/25 13:53 Sodium 127 mmol/L (136-145) L 09/11/25 13:53 Potassium 4.3 mmol/L (3.5-5.1) 09/11/25 13:53 Chloride 92 mmol/L (98-107) L 09/11/25 13:53 Carbon Dioxide 23 mmol/L (22-29) 09/11/25 13:53 Anion Gap 16.3 (5-19) 09/11/25 13:53 BUN 23 mg/dL (6-20) H 09/11/25 13:53 Creatinine 0.9 mg/dL (0.7-1.2) 09/11/25 13:53 GFR Calculation 102.0 mL/min (90-130) 09/11/25 13:53 Drug administration history:: Medications Discontinued Medications Piperacillin Sod/Tazobactam (Sod 3.375 gm/ Sodium Chloride) 50 mls @ 100 mls/hr IV ONCE ONE; Protocol Stop: 09/11/25 15:04 Last Admin: 09/11/25 15:52 Dose: Infused Vancomycin HCl (Vancocin) 2,000 mg in 400 mls @ 200 mls/hr IV ONCE ONE Stop: 09/11/25 16:59 Last Admin: 09/11/25 15:57 Dose: 200 mls/hr Regimen:: PATIENT BEIGN TREATED FOR SEPSIS. 2000 MG GIVEN IN ER AROUND 1600. GIVING AN ADDITIONAL 1G ONCE 2000 MG FINISHES INFUSING AT 1800 FOR A TOTAL LOADING DOSE OF 3000MG. MAINTENANCE DOSE OF 1500 MG Q8H. WILL CONTINUE TO MONITOR DAILY AND O BTAIN TROUGH PRIOR TO 4TH DOSE.
[2025-09-11] MEDS: pantoprazole 40 mg SDV IVP (17:29)
--- NOTE | 2025-09-11 19:04 | PM.CONSULT ---
Providers/Reason For Consult Consulting Physician/Specialty*: Dr. Buckley general surgery Reason for Consult*: Left lower extremity cellulitis, right decubitus ulcer Attending Physician: Yasmine Biswas NP Primary Care Provider: Geoffrey Pryor MD History of Present Illness History of Present Illness Oliver Humphreys is a 25 year old male whom surgery was consulted for cellulitis of left lower extremity and for decubitus right hip. Cellulitis been treated with antibiotics. CT scan did not reveal any abscesses or air in the subcutaneous tissues. Right decubitus has very small about 1 x 2 cm. Medications/Allergies Home Medications ?Medication ?Instructions ?Recorded ?Confirmed ?Last Taken ?Type reli glucometer and strips #1 ea 11/14/22 09/11/25 Unknown Rx blood-glucose sensor (FreeStyle #2 ea 01/19/24 09/11/25 Unknown Rx Sonia 3 Sensor device) blood-glucose,seasonal recruiter,cont #1 ea 01/19/24 09/11/25 Unknown Rx (FreeStyle Sonia 3 [place]) insulin glargine 100 unit/mL (3 40 unit (0.4 mL) SUBCUT QAM #15 mL 01/19/24 09/11/25 Unknown Rx mL) subcutaneous pen (Lantus Solostar U-100 Insulin) Allergies Allergy/AdvReac Type Severity Reaction Status Date / Time No Known Allergies Allergy Verified 05/17/24 07:23 Current Medications Generic Name Dose Route Start Last Admin Trade Name Freq PRN Reason Stop Dose Admin Docusate Sodium 100 mg 09/11/25 17:00 09/11/25 17:29 Docusate Sodium 100 Mg Capsule PO 100 mg BID STEPHANIE Administration Enoxaparin Sodium 40 mg 09/11/25 17:00 09/11/25 17:29 Enoxaparin 40 Mg/0.4 Ml Syringe SUBCUT 40 mg Q24H STEPHANIE Administration Sodium Chloride 1,000 mls @ 125 mls/hr 09/11/25 17:00 09/11/25 17:30 Sodium Chloride 0.9% IV 125 mls/hr .Q8H STEPHANIE Administration Insulin Human Lispro 0 unit 09/11/25 18:00 09/11/25 18:12 Insulin Lispro 100 Unit/1 Ml SUBCUT 14 unit WM&BEDTIME STEPHANIE Administration Protocol Pantoprazole Sodium 40 mg 09/11/25 17:00 09/11/25 17:29 Pantoprazole 40 Mg Sdv IVP 40 mg Q24H STEPHANIE Administration PFSH Acute PFSH: Medical History (Updated 09/12/25 @ 16:46 by Isaias Buckley MD) Cellulitis of leg without foot, left Nonhealing ulcer of left lower leg with fat layer exposed Morbid obesity with BMI of 45.0-49.9, adult DM type 2 (diabetes mellitus, type 2) Neck abscess Surgical History History of incision and drainage History of tonsillectomy Family History Mother Diabetes Denies family history of Anesthesia complication Bleeding disorder Social History Smoking and tobacco/nicotine status: former use of tobacco/nicotine Alcohol intake: never Substance/Drug Use: never Household members: family Highest education level completed: 11th Grade Vitals/I&O/Wt Last Vital Signs Temp 98.8 F 09/11/25 18:15 Pulse 90 09/11/25 18:15 Resp 21 H 09/11/25 18:15 BP 111/63 09/11/25 18:15 Pulse Ox 95 09/11/25 18:15 O2 Del Method Room Air 09/11/25 18:15 09/11/25 09/11/25 09/11/25 06:59 14:59 22:59 Intake Total 3028 / 3028 Balance 3028 / 3028 Weight last 48 hrs Weight 305 lb Weight 299 lb Physical Exam Narrative: Chest: Unlabored breathing room air. No lymphadenopathy. Heart: Regular rate and rhythm. Abdomen: Soft, nontender, nondistended. No masses or lymphadenopathy. Right hip: 2 x 1 cm decubitus ulcer. Left lower extremity: Cellulitis left sweeney. No fluctuance. No crepitation. Data 09/12/25 05:59 09/12/25 05:59 Micro: Microbiology 09/11/25 13:54 Blood Culture - Preliminary Blood SPECIMEN COLLECTED 09/11/25 13:53 Blood Culture - Preliminary Blood SPECIMEN COLLECTED A&P Assessment and plan 1. Left leg cellulitis: 2. Decubitus ulcer, hip, right, unstageable: Plan: 25-year-old male with a left lower extremity cellulitis. Treat with antibiotics. No indication for surgical debridement since there is no abscess. Can follow-up with wound care for possible Unna boot left lower extremity. Right hip decubitus is very small. Recommend frequent pressure offloading. Consider an air mattress. Rest of care per hospitalist. PDMP PDMP Reviewed: Not Reviewed Coding Level of Care Code 36852 Diagnoses Left leg cellulitis L03.116 Decubitus ulcer, hip, right, unstageable L89.210
[2025-09-11] MEDS: nystatin 100,000 unit/mL UDC 5 mL 500000 UNIT PO (22:18)
[2025-09-12] VITALS (47 sets, daily range): BP systolic 102–137; BP diastolic 62–84; PULSE 88–105; RESP 6–31; TEMP 37–37.2; O2SAT 90–97
[2025-09-12] MEDS: HYDROcodone-acetaminophen 5-325 mg Tablet 1 TAB PO ×2 (02:26→11:04)
[2025-09-12] MEDS: nystatin 100,000 unit/mL UDC 5 mL 500000 UNIT PO ×4 (05:00→22:01)
[2025-09-12] MEDS: insulin glargine 100 units/1 mL 40 UNIT SUBCUT (05:03)
[2025-09-12 06:15] LABS: Hematocrit 35.7 % (37-53); Hemoglobin 11.50 g/dL (11.27-16.99); Mean Corpuscular HGB Conc 32.2 g/dL (30-55); Mean Corpuscular Hemoglobin 25.2 pg (27-33); Mean Corpuscular Volume 78.3 fl (82-101); Nucleated Red Blood Cells % 0 %; Platelet Count 99 10^3/cmm (157-399); Red Blood Count 4.56 10^6/uL (3.85-5.65); White Blood Count 8.58 10^3/uL (3.29-11.43)
[2025-09-12] MEDS: piperacillin-tazobactam 3.375 GM in sodium chloride 0.9% (plus) 50 ML IV ×3 (06:25→22:04)
[2025-09-12 06:37] LABS: Cholesterol 100 mg/dL (0-200); HDL Cholesterol 17 mg/dL (60-100); Triglycerides 181 mg/dL (0-150)
[2025-09-12 06:40] LABS: Alanine Aminotransferase 45 U/L (0-41); Albumin Level 2.8 g/dL (3.5-5.2); Alkaline Phosphatase 66 U/L (40-130); Anion Gap 12.7 (5-19); Aspartate Amino Transferase 72 U/L (0-40); Blood Urea Nitrogen 13 mg/dL (6-20); Calcium 8.0 mg/dL (8.5-10.5); Carbon Dioxide 24 mmol/L (22-29); Chloride 98 mmol/L (98-107); Globulin 4.1 g/dL (1.3-4.6); Glucose 233 mg/dL (65-115); Magnesium 1.6 mg/dL (1.7-2.3); Osmolality Calculated 280 mOsm/kg (285-295); Potassium 3.7 mmol/L (3.5-5.1); Sodium 131 mmol/L (136-145); Thyroid Stimulating Hormone 2.12 uIU/mL (0.27-4.20); Total Protein 6.9 g/dL (6.6-8.7)
[2025-09-12 07:34] LABS: Slide Review Slide Review Perform
[2025-09-12 07:48] LABS: Lactic Sepsis W/Reflex 1.3 mmol/L (0.5-2.2)
--- NOTE | 2025-09-12 07:48 | P.PN_ITS ---
Documented by User: Annita Powers NP 09/12/25 13:12 Subjective 2 Subjective: Patient resting in bed on room air, mother noted to be present at bedside during my evaluation. Patient complains of continued severe pain to right lower extremity. V/S signs and labs reviewed this morning. Magnesium IV 2gm supplementation ordered. Plans of care discussion with Dr. Light, possible debridement for 09/13, Infectious disease consulted. Vitals/I&O/Wt Last Vital Signs Temp 98.6 F 09/12/25 06:25 Pulse 99 09/12/25 05:00 Resp 22 H 09/12/25 05:00 BP 132/78 09/12/25 05:00 Pulse Ox 95 09/12/25 05:00 O2 Del Method Room Air 09/11/25 18:15 09/11/25 09/12/25 09/12/25 22:59 06:59 14:59 Intake Total 3673.833 / 3673.833 954.167 / 4628.000 Output Total 1600 / 1600 Balance 3673.833 / 3673.833 -645.833 / 3028.000 Weight last 48 hrs Weight 138.346 kg Weight 135.624 kg Physical Exam 2 Narrative: General: Al&Ox4, lying comfortably w/o any distress HEENT: Normocephalic, atraumatic, white coating over tongue and cheeks present. Cardio: NSR, normal S1-S2 w/o any murmurs, rubs, or gallops and JVD normal Respiratory: Clear on auscultation w/o any wheezes, stridor, rhonchi GI: Abdomen soft, non-tender, non-distended, normo-active bowel sounds present Extremities: Localized skin erhythema, warmth, tenderness and edema present to left lower extremity w/ open wound. Const: GENERAL APPEARANCE: not diaphoretic Skin: GENERAL SKIN EXAM: no mottling and no pallor Data 09/12/25 05:59 09/12/25 05:59 Micro: Microbiology 09/11/25 13:54 Blood Culture - Preliminary Blood SPECIMEN COLLECTED 09/11/25 13:53 Blood Culture - Preliminary Blood SPECIMEN COLLECTED A&P Assessment and plan 1. Sepsis: 2. Cellulitis of leg without foot, left: 3. DM type 2 (diabetes mellitus, type 2): 4. Oral harley: 5. Hyperlipemia, mixed: Plan: Sepsis, Cellulitis Nonhealing ulcer of left lower leg ? See imaging as above ? Hemodynamically stable currently, V/S q2h ? Hx of MSSA, 11/2019 ? Blood cultures obtained on 09/11, pending. ? MRSA ordered, pending. ? Received sepsis bolus in ED, continue IV fluid hydration on admission. ? Pending general surgical recommendations from Dr Buckley, possible debridement 09/13. ? Clear liquid consistent carbohydrate diet ? Continue IV broad-spectrum abx of vancomycin, Zosyn. Infectious disease consulted, appreciate recommendations. ? Decrease IVF NS to 75ml/hr ? CBC, CMP, and Mag ordered dly. Labs 09/12: Lactic acid: 1.3 trending down. M a.6, IV mag 2gm ordered- follow. ? Replace electrolytes as indicated. ? Pain management with IVP morphine 2 mg q4h, hydrocodone 5-325 PO q4h ? PT/OT on board DM2 ? Noncompliant diabetic, forgets to take his medication. ? A1c resulted and reviewed- 12.0 on 09/12 ? Blood glucose monitoring, ACHS ? High regimen insulin sliding scale ? Continue Lantus 40u sub q dly in a.m. ? Hypoglycemia protocol ordered. ? Carbohydrate consistent diet, post surgical consult. Oral Harley ? Nystatin 500,000 unit PO ordered. Hyperlipidemia ? Lipid panel ordered reviewed. No statin at this time. Intellectual Disability - Parent's state that they make medical decisions - Coordinate with Case Management on appropriate documentation and discharge planning CODE STATUS: Full code GI prophylaxis: IVP Protonix 40 mg dly DVT prophylaxis: SCDs, Lovenox sub q PDMP PDMP Reviewed: Not Reviewed Attestations 2 Medical Necessity Statement*: Requiring inpatient hospitalization crossing 2 midnights due to severity of illness, sepsis, cellulitis left lower extremity necessitating surgical consultation and medical management, complex medical management. Coding Level of Care Code 63863 Diagnoses Sepsis A41.9 Cellulitis of leg without foot, left L03.116 DM type 2 (diabetes mellitus, type 2) E11.9 Oral harley B37.0 Hyperlipemia, mixed E78.2 Documented by User: Yasmine Biswas NP 09/12/25 13:19 Subjective 2 Subjective: Patient resting in bed on room air, mother noted to be present at bedside during my evaluation. Patient complains of continued severe pain to right lower extremity. V/S signs and labs reviewed this morning. Magnesium IV 2gm supplementation ordered. Plans of care discussion with Dr. Light, possible debridement for 09/13, Infectious disease consulted for continued antibiotic management, further workup/cultures pending. Discussed results and plan of care with mother Lyn at the bedside. Also coordinating with case management on discharge planning and additional resources available to family once the patient is medically stable. Data 09/12/25 05:59 09/12/25 05:59 A&P Assessment and plan 1. Sepsis: 2. Cellulitis of leg without foot, left: 3. DM type 2 (diabetes mellitus, type 2): 4. Oral harley: 5. Hyperlipemia, mixed: PDMP PDMP Reviewed: Not Reviewed and High Time for a total of 65 minutes, includes reviewing past or interval history, examining/interviewing patient, placing orders, counseling patient/family/other support, updating patient/family/other support, discussing plan of care with staff, communicating with other healthcare providers, documenting encounter and coordinating care Diagnoses Sepsis A41.9 Cellulitis of leg without foot, left L03.116 DM type 2 (diabetes mellitus, type 2) E11.9 Oral harley B37.0 Hyperlipemia, mixed E78.2
[2025-09-12] MEDS: morphine 4 mg/mL SDV 1 mL 2 MG IVP ×2 (08:36→17:35)
[2025-09-12 08:50] LABS: Estmated Average Glucose 298; Hemoglobin A1C 12.0 % (4.0-6.0)
[2025-09-12] MEDS: magnesium sulfate premix 2 GM/50 ML PIGGYBACK IV (09:11)
--- NOTE | 2025-09-12 16:48 | P.PN_ITS ---
Subjective 2 Subjective: No acute events overnight Vitals/I&O/Wt Last Vital Signs Temp 98.6 F 09/12/25 06:25 Pulse 92 09/12/25 16:00 Resp 22 H 09/12/25 16:00 BP 104/65 09/12/25 16:00 Pulse Ox 90 09/12/25 16:00 O2 Del Method Room Air 09/11/25 18:15 09/12/25 09/12/25 09/12/25 06:59 14:59 22:59 Intake Total 954.167 / 4628.000 1400 / 1400 Output Total 1600 / 1600 Balance -645.833 / 3028.000 1400 / 1400 Weight last 48 hrs Weight 305 lb Weight 299 lb Physical Exam 2 Narrative: Chest: Unlabored breathing room air. No lymphadenopathy. Heart: Regular rate and rhythm. Abdomen: Soft, nontender, nondistended. No masses or lymphadenopathy. Left lower extremity cellulitis present 2 x 1 cm decubitus ulcer right hip prese nt Data 09/12/25 05:59 09/12/25 05:59 Micro: Microbiology 09/11/25 13:54 Blood Culture - Preliminary Blood NEGATIVE TO DATE 09/11/25 13:53 Blood Culture - Preliminary Blood NEGATIVE TO DATE A&P Assessment and plan 1. Decubitus ulcer, hip, right, unstageable: 2. Cellulitis of leg without foot, left: Plan: 25-year-old male with left lower extremity cellulitis and right hip decubitus ulcer. Recommend continuing antibiotics for cellulitis no surgical indication for debridement. Recommend frequent pressure offloading for right hip decubitus rest of care per hospitalist PDMP PDMP Reviewed: Not Reviewed Attestations 2 Medical Necessity Statement*: N/A Coding Level of Care Code 41546 Diagnoses Decubitus ulcer, hip, right, unstageable L89.210 Cellulitis of leg without foot, left L03.116
--- NOTE | 2025-09-12 17:02 | P.CONIM_ITS ---
Providers/Reason For Consult 2 Consulting Physician/Specialty*: Francheska Miles MD/ infectious disease Reason for Consult*: abdominal wall infection Requesting Physician: Yasmine Biswas NP Attending Physician: Yasmine Biswas NP Primary Care Provider: Geoffrey Pryor MD History of Present Illness History of Present Illness Oliver Humphreys is a 25 year old male with uncontrolled DM with A1c of 12%, admitted to the hospital with LLE cellulitis. He reports that symptoms started on Thursday (today is Thursday), initially started off as a small blister and then continued to progress to the left lower extremity becoming erythematous swollen and tender. He has had a similar left lower extremity infection last year in 2023 for which he was treated with antibiotics and needed prolonged follow-up with wound care. He has some scars over the tibia proximally. No underlying hardware. Denies any surgeries except what appears to be debridement for a prior skin infection. He has multiple small areas of folliculitis in various stages of healing noted over the right wrist, antecubital fossa, healing follicles over his abdomen, under the chin with scarring around consistent with reported history of spontaneous boils which patient admits to scratching due to itching. Wound culture previously has shown MSSA and group B strep. Preliminary blood culture is negative to date so far. He has previously had deep-seated neck and buttock abscesses in 2019 at which time he was treated with IV ceftriaxone. Review of Systems 2 General: Reports: 10 or more systems reviewed and unremarkable except in HPI and below Const: Denies: fever(s), chills or body aches Eyes: Denies: change in vision, blurry vision or photophobia ENMT: Reports: hoarseness; Denies: throat pain, enlarged tonsils, odynophagia or nasal congestion Card: Denies: chest pain, palpitations, irregular heart rhythm, edema, swelling of feet/ankles, lightheadedness, pre-syncope, dyspnea on exertion or orthopnea Resp: Denies: dyspnea, productive cough, non-productive cough, wheezing, stridor, pain on inspiration, change in phlegm color, hemoptysis or chest congestion GI: Denies: abdominal pain, nausea, vomiting, hematemesis, coffee ground emesis, dysphagia, heartburn, diarrhea, constipation, GI cramping, change in stool character, hematochezia or melena : Denies: flank pain, dysuria, urinary frequency, urinary urgency, urinary hesitancy or hematuria Musc: Denies: neck pain, back pain, extremity pain, joint swelling, joint warmth or deformity Neuro: Denies: headache(s), numbness in extremities, weakness in extremities, sensory changes, difficulty walking, frequent falls, dizziness, vertigo, behavioral changes, Slurred speech present or seizure-like activity Psych: Denies: anxiety, depression, suicidal ideation or homicidal ideation Endo: Denies: polyuria, polydipsia, tired all the time, cold intolerance or hot flashes Isidro/Lymph: Denies: easy bruising or easy bleeding Medications/Allergies Home Medications ?Medication ?Instructions ?Recorded ?Confirmed ?Last Taken ?Type reli glucometer and strips #1 ea 11/14/22 09/11/25 Unk nown Rx blood-glucose sensor (FreeStyle #2 ea 01/19/24 5 Unknown Rx Sonia 3 Sensor device) blood-glucose,underwriting intern,cont #1 ea 01/19/24 09/11/25 Un known Rx (FreeStyle Sonia 3 Boyd) insulin glargine 100 unit/mL (3 40 unit (0.4 mL) SUBCU T QAM #15 mL 01/19/24 09/11/25 Unknown Rx mL) subcutaneous pen (Lantus Solostar U-100 Insulin) Allergies Allergy/AdvReac Type Severity Reaction Status Date / Time No Known Allergies Allergy Verified 05/17/24 07:23 Current Medications Generic Name Dose Route Start Last Admin Trade Name Freq PRN Reason Stop Dose Admin Hydrocodone Bitart/Acetaminophen 1 tab 09/11/25 16:52 09/12/25 11:04 Hydrocodone-Acetaminophen 5-325 Mg Tablet PO 1 tab Q4H PRN Administration MODERATE TO SEVERE PAIN Docusate Sodium 100 mg 09/11/25 17:00 09/12/25 05:01 Docusate Sodium 100 Mg Capsule PO 100 mg BID STEPHANIE Administration Enoxaparin Sodium 40 mg 09/11/25 17:00 09/11/25 17:29 Enoxaparin 40 Mg/0.4 Ml Syringe SUBCUT 40 mg Q24H STEPHANIE Administration Sodium Chloride 1,000 mls @ 75 mls/hr 09/11/25 17:00 09/12/25 10:00 Sodium Chloride 0.9% IV 125 mls/hr .[id number] STEPHANIE Administration Piperacillin Sod/Tazobactam 50 mls @ 12.5 mls/hr 09/11/25 23:00 09/12/25 14:55 Sod 3.375 gm/ Sodium Chloride IV 12.5 mls/hr Q8H STEPHANIE Administration Vancomycin HCl 1,500 mg in 300 mls @ 200 mls/hr 09/12/25 02:00 09/12/25 10:04 Vancocin IV 200 mls/hr Q8H STEPHANIE Administration Insulin Glargine 40 unit 09/12/25 05:00 09/12/25 05:03 Insulin Glargine 100 Units/1 Ml SUBCUT 40 unit QAM STEPHANIE Administration Insulin Human Lispro 0 unit 09/11/25 18:00 09/12/25 11:12 Insulin Lispro 100 Unit/1 Ml SUBCUT 10 unit WM&BEDTIME STEPHANIE Administration Protocol Morphine Sulfate 2 mg 09/11/25 16:52 09/12/25 08:36 Morphine 4 Mg/Ml Sdv 1 Ml IVP 2 mg Q4H PRN Administration SEVERE PAIN Nystatin 500,000 unit 09/11/25 23:00 09/12/25 10:04 Nystatin 100,000 Unit/Ml Udc 5 Ml PO 500,000 unit QID STEPHANIE Administration Pantoprazole Sodium 40 mg 09/11/25 17:00 09/11/25 17:29 Pantoprazole 40 Mg Sdv IVP 40 mg Q24H STEPHANIE Administration Senna 17.2 mg 09/11/25 21:00 09/11/25 20:24 Sennosides 8.6 Mg Tablet PO Not Given BEDTIME STEPHANIE PFSH Acute 2 PFSH: Medical History Cellulitis of leg without foot, left Nonhealing ulcer of left lower leg with fat layer exposed Morbid obesity with BMI of 45.0-49.9, adult DM type 2 (diabetes mellitus, type 2) Neck abscess Surgical History History of incision and drainage History of tonsillectomy Family History Mother Diabetes Denies family history of Anesthesia complication Bleeding disorder Social History Smoking and tobacco/nicotine status: former use of tobacco/nicotine Alcohol intake: never Substance/Drug Use: never Household members: family Highest education level completed: 11th Grade Vitals/I&O/Wt Last Vital Signs Temp 98.6 F 09/12/25 06:25 Pulse 92 09/12/25 16:00 Resp 22 H 09/12/25 16:00 BP 104/65 09/12/25 16:00 Pulse Ox 90 09/12/25 16:00 O2 Del Method Room Air 09/11/25 18:15 09/12/25 09/12/25 09/12/25 06:59 14:59 22:59 Intake Total 954.167 / 4628.000 1400 / 1400 Output Total 1600 / 1600 Balance -645.833 / 3028.000 1400 / 1400 Weight last 48 hrs Weight 138.346 kg Weight 135.624 kg Physical Exam 2 Narrative: General: No acute distress, AO x3 HEENT: PERRLA, pupils bilaterally equal and reactive, pallors not present, healing folliculitis over inferior aspect of the chin Abdomen: Soft, nontender, no organomegaly, bowel sounds present, multiple small healing folliculitis over the abdomen. Small ulceration over the right lateral aspect of the thigh from scratching. Several scars noted over the abdomen from prior healed lesions. Neuro: No focal deficits, no facial deformity, AO x3, power 5/5 in all limbs EXT: Data 09/12/25 05:59 09/12/25 05:59 Other Labs: Radiology Impressions Tibia/Fibula X-Ray 09/11/25 13:00 IMPRESSION: No acute osseous abnormality Chest X-Ray 09/11/25 13:02 IMPRESSION: No acute findings. Lower Extremity CT 09/11/25 14:59 IMPRESSION: Cellulitis of the distal calf with localized inflammatory changes/phlegmonous tissue along the anteromedial aspect of the distal calf without soft tissue abscess or osteomyelitis Laboratory Results WBC 8.58 10^3/uL (3.29-11.43) 09/12/25 05:59 RBC 4.56 10^6/uL (3.85-5.65) 09/12/25 05:59 Hgb 11.50 g/dL (11.27-16.99) 09/12/25 05:59 Hct 35.7 % (37-53) L 09/12/25 05:59 MCV 78.3 fl (82-101) L 09/12/25 05:59 MCH 25.2 pg (27-33) L 09/12/25 05:59 MCHC 32.2 g/dL (30-55) 09/12/25 05:59 RDW 14.7 % (12.1-15.1) 09/12/25 05:59 Plt Count 99 10^3/cmm (157-399) L 09/12/25 05:59 MPV 11.5 fL (7.4-10.4) H 09/12/25 05:59 Neut % (Auto) 73.0 % 09/12/25 05:59 Lymph % (Auto) 19.9 % 09/12/25 05:59 [place] % (Auto) 6.2 % 09/12/25 05:59 Eos % (Auto) 0.0 % 09/12/25 05:59 Baso % (Auto) 0.2 % 09/12/25 05:59 Neut # (Auto) 6.26 10^3/uL (1.8-7.7) 09/12/25 05:59 Lymph # (Auto) 1.7 10^3/uL (0.8-4.8) 09/12/25 05:59 [place] # (Auto) 0.5 10^3/uL (0.2-0.9) 09/12/25 05:59 Eos # (Auto) 0.0 10^3/uL (0.0-0.8) 09/12/25 05:59 Baso # (Auto) 0.0 10^3/uL (0.0-0.1) 09/12/25 05:59 Nucleated RBC % (auto) 0 % 09/12/25 05:59 Nucleated RBCs # 0.0 /100WBC 09/12/25 05:59 ESR 88 mm/hr (0-10) H 09/11/25 13:53 Specimen Type Arterial 09/11/25 15:22 Sample Site Radial, right 09/11/25 15:22 ABG pH 7.42 (7.35-7.45) 09/11/25 15:22 ABG pCO2 34.8 mmHg (35-45) L 09/11/25 15:22 ABG pO2 67.1 mmHg (80.0-100.0) L 09/11/25 15:22 ABG PO2/FiO2 Ratio 319 09/11/25 15:22 ABG HCO3 22.7 mmol/L (22-26) 09/11/25 15:22 ABG O2 Saturation 95.1 09/11/25 15:22 ABG Base Excess -1.3 mmol/L (-2.0-2.0) 09/11/25 15:22 Ramon Test Pos 09/11/25 15:22 A-a O2 Gradient 5.0 mmHg (5-10) 09/11/25 15:22 Hematocrit 36.1 % (42-52) L 09/11/25 15:22 Hgb O2 Saturation 93.0 % (95-100) L 09/11/25 15:22 Carboxyhemoglobin 1.4 %THgb (0.4-20.1) 09/11/25 15:22 Methemoglobin 0.8 % (0.4-1.5) 09/11/25 15:22 Total Hemoglobin 11.8 g/dL (14-18) L 09/11/25 15:22 Sodium 129.0 mmol/L (131-143) L 09/11/25 15:22 Potassium 3.5 mmol/L (3.5-5.0) 09/11/25 15:22 Glucose 389.0 mg/dL (70-115) H 09/11/25 15:22 Ionized Calcium 1.0 mmol/L (1.1-1.4) L 09/11/25 15:22 O2 Delivery Device Room air 09/11/25 15:22 FiO2 21.0 % 09/11/25 15:22 Price Lister ID glc 09/11/25 15:22 Sodium 131 mmol/L (136-145) L 09/12/25 05:59 Potassium 3.7 mmol/L (3.5-5.1) 09/12/25 05:59 Chloride 98 mmol/L (98-107) 09/12/25 05:59 Carbon Dioxide 24 mmol/L (22-29) 09/12/25 05:59 Anion Gap 12.7 (5-19) 09/12/25 05:59 BUN 13 mg/dL (6-20) 09/12/25 05:59 Creatinine 0.6 mg/dL (0.7-1.2) L 09/12/25 05:59 GFR Calculation 162.9 mL/min (90-130) H 09/12/25 05:59 Glucose 233 mg/dL (65-115) H 09/12/25 05:59 POC Glucose 166 mg/dL (70-110) H 09/12/25 17:09 Estimat Average Glucose 298 09/12/25 05:59 Hemoglobin A1c 12.0 % (4.0-6.0) H 09/12/25 05:59 Calculated Osmolality 280 mOsm/kg (285-295) L 09/12/25 05:59 Lactic Acid 1.3 mmol/L (0.5-2.2) 09/12/25 07:11 Lactic Acid (Sepsis) Cancelled 09/11/25 16:53 Calcium 8.0 mg/dL (8.5-10.5) L 09/12/25 05:59 Magnesium 1.6 mg/dL (1.7-2.3) L 09/12/25 05:59 Total Bilirubin 0.7 mg/dL (0.15-1.2) 09/12/25 05:59 AST 72 U/L (0-40) H 09/12/25 05:59 ALT 45 U/L (0-41) H 09/12/25 05:59 Alkaline Phosphatase 66 U/L (40-130) 09/12/25 05:59 C-Reactive Protein 346.7 mg/L (0.0-4.9) H 09/11/25 13:53 Total Protein 6.9 g/dL (6.6-8.7) 09/12/25 05:59 Albumin 2.8 g/dL (3.5-5.2) L 09/12/25 05:59 Globulin 4.1 g/dL (1.3-4.6) 09/12/25 05:59 Triglycerides 181 mg/dL (0-150) H 09/12/25 05:59 Cholesterol 100 mg/dL (0-200) 09/12/25 05:59 LDL Cholesterol, Calc 47 mg/dL (50-129) L 09/12/25 05:59 HDL Cholesterol 17 mg/dL (60-100) L 09/12/25 05:59 LDL/HDL Ratio 2.76 RATIO (0.00-3.22) 09/12/25 05:59 Cholesterol/HDL Ratio 5.88 mg/dL (1.0-5.00) H 09/12/25 05:59 TSH 2.12 uIU/mL (0.27-4.20) 09/12/25 05:59 Micro: Microbiology 09/11/25 13:54 Blood Culture - Preliminary Blood NEGATIVE TO DATE 09/11/25 13:53 Blood Culture - Preliminary Blood NEGATIVE TO DATE A&P Assessment and plan 1. Left leg cellulitis: 2. Cellulitis of leg without foot, left: Plan: 25-year-old male with uncontrolled diabetes mellitus with A1c of 12, currently admitted to the hospital with left lower extremity cellulitis, which appears to have started initially as a smaller lesion. Review of chart and patient's examination show patient has had recurrent episodes of folliculitis which are in various stages of healing currently some with scarring noted in the past. 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 Previous wound cultures have shown group B strep and MSSA. Currently blood culture is pending. CT of the leg without any drainable abscess. Blister noted on the posterior aspect. Continue empiric treatment with piperacillin/tazobactam and vancomycin for now. Based on progress and pending culture results we will attempt to narrow antibiotic coverage Encourage strict compliance with diabetes management. Will follow PDMP PDMP Reviewed: Not Reviewed Coding Level of Care Code Acute Code for [facility] Fwd Diagnoses Left leg cellulitis L03.116 Cellulitis of leg without foot, left L03.116
[2025-09-12] MEDS: pantoprazole 40 mg SDV IVP (17:46)
[2025-09-12 19:36] LABS: MRSA PCR OZH (swab) NOT DETECTED (Negative)
[2025-09-13] VITALS (8 sets, daily range): BP systolic 97–110; BP diastolic 62–72; PULSE 80–92; RESP 12–24; TEMP 36.7–37.6; O2SAT 90–98
[2025-09-13] MEDS: morphine 4 mg/mL SDV 1 mL 2 MG IVP (01:49)
--- NOTE | 2025-09-13 02:13 | PC.NURSE ---
Patient transferred to same day surgery center room 255. [facility] staff to bedside. All belongings taken with patient. Patient voicing no complaints at this time.
[2025-09-13] MEDS: nystatin 100,000 unit/mL UDC 5 mL 500000 UNIT PO ×4 (05:07→22:43)
[2025-09-13 05:46] LABS: Hematocrit 33.1 % (37-53); Hemoglobin 10.50 g/dL (11.27-16.99); Mean Corpuscular HGB Conc 31.7 g/dL (30-55); Mean Corpuscular Hemoglobin 24.9 pg (27-33); Mean Corpuscular Volume 78.6 fl (82-101); Nucleated Red Blood Cells % 0 %; Platelet Count 96 10^3/cmm (157-399); Red Blood Count 4.21 10^6/uL (3.85-5.65); White Blood Count 7.72 10^3/uL (3.29-11.43)
--- NOTE | 2025-09-13 05:47 | PC.NURSE ---
Patient has a blood sugar of 139 and 40 units of Lantus scheduled for 0500; Jerrell Navarro advised to hold dose at this time.
[2025-09-13 06:10] LABS: Alanine Aminotransferase 30 U/L (0-41); Albumin Level 2.7 g/dL (3.5-5.2); Alkaline Phosphatase 85 U/L (40-130); Anion Gap 13.8 (5-19); Aspartate Amino Transferase 47 U/L (0-40); Blood Urea Nitrogen 9 mg/dL (6-20); Calcium 8.0 mg/dL (8.5-10.5); Carbon Dioxide 23 mmol/L (22-29); Chloride 101 mmol/L (98-107); Globulin 3.9 g/dL (1.3-4.6); Glucose 143 mg/dL (65-115); Magnesium 2.0 mg/dL (1.7-2.3); Osmolality Calculated 279 mOsm/kg (285-295); Potassium 3.8 mmol/L (3.5-5.1); Sodium 134 mmol/L (136-145); Total Protein 6.6 g/dL (6.6-8.7)
[2025-09-13] MEDS: piperacillin-tazobactam 3.375 GM in sodium chloride 0.9% (plus) 50 ML IV ×3 (06:55→22:42)
--- NOTE | 2025-09-13 09:09 | P.PN_ITS ---
Subjective 2 Subjective: Patient resting in bed on room air family noted to be at bedside upon my evaluation. Patient complains of continued pain to left lower extremity. Plans of care discussion included: Infectious disease consulted 09/12 recommendations to continue IV ABX of Zosyn and vancomycin pending blood cultures. MRSA swab negative. Vital signs and labs reviewed this morning. WBC 7.72, neutrophil 4.76 -trending down, mag 2.0, Na 134, POC glucose 139 this a.m. All questions and concerns addressed with patient at bedside. Vitals/I&O/Wt Last Vital Signs Temp 99.6 F 09/13/25 07:28 Pulse 89 09/13/25 07:28 Resp 16 09/13/25 07:28 BP 110/71 09/13/25 07:28 Pulse Ox 90 09/13/25 07:28 O2 Del Method Room Air 09/13/25 07:28 09/12/25 09/13/25 09/13/25 22:59 06:59 14:59 Intake Total 2200 / 3900 350 / 4250 60 / 60 Output Total 950 / 950 650 / 650 Balance 1250 / 2950 350 / 3300 -590 / -590 Weight last 48 hrs Weight 140.755 kg Weight 140.755 kg Weight 138.346 kg Weight 135.624 kg Physical Exam 2 Narrative: General: Al&Ox4, lying comfortably w/o any distress HEENT: Normocephalic, atraumatic, white coating over tongue and cheeks present. Cardio: NSR, normal S1-S2 w/o any murmurs, rubs, or gallops and JVD normal Respiratory: Clear on auscultation w/o any wheezes, stridor, rhonchi GI: Abdomen soft, non-tender, non-distended, normo-active bowel sounds present Extremities: Localized skin erhythema, warmth, tenderness and edema present to left lower extremity w/ open wound. Small ulceration over the right lateral aspect of the thigh. Data 09/13/25 05:26 09/13/25 05: Micro: Microbiology 09/11/25 13:54 Blood Culture - Preliminary Blood NEGATIVE TO DATE 09/11/25 13:53 Blood Culture - Preliminary Blood NEGATIVE TO DATE A&P Assessment and plan 1. Sepsis: 2. Cellulitis of leg without foot, left: 3. DM type 2 (diabetes mellitus, type 2): 4. Oral violeta: 5. Hyperlipemia, mixed: Plan: Sepsis, Cellulitis Nonhealing ulcer of left lower leg ? See imaging as above ? Hemodynamically stable currently, V/S q2h ? Hx of MSSA, 11/2019 ? Blood cultures obtained on 09/11, pending, NGTD. ? 09/13: MRSA, negative. ? 09/12 General Surgery consulted, Dr Buckley recommendations include: No surgical indication for debridement ? D/C IVF , advanced diet to carb consistent ? Continue IV broad-spectrum abx of Vancomycin, Zosyn per Infectious Disease recommendations. ? CBC, CMP, and Mag ordered dly. Labs 09/13: WBC 7.72, neutrophil 4.76 -trending down, mag 2.0, Na 134, POC glucose 139 this a.m. Replace electrolytes as indicated. ? Q2hr pressure offloading for right hip decubitus ? Pain management with IVP morphine 2 mg q4h, hydrocodone 5-325 PO q4h ? PT/OT recommends SNF versus HH upon discharge. Patient total assist DM2 ? Noncompliant diabetic, forgets to take his medication. ? A1c resulted and reviewed- 12.0 on 09/12 ? Blood glucose monitoring, ACHS ? High regimen insulin sliding scale ? Continue Lantus 40u sub q dly in a.m. ? Hypoglycemia protocol ordered. Oral Violeta ? Continue Nystatin 500,000 unit PO ordered. Hyperlipidemia ? Lipid panel ordered reviewed. No statin at this time. Intellectual Disability - Parent's state that they make medical decisions - Coordinate with Case Management on appropriate documentation and discharge planning CODE STATUS: Full code GI prophylaxis: Protonix PO 40 mg dly DVT prophylaxis: SCDs, Lovenox sub q PDMP PDMP Reviewed: Not Reviewed Attestations 2 Medical Necessity Statement*: Requiring inpatient hospitalization crossing 2 midnights due to severity of illness, sepsis, cellulitis left lower extremity necessitating surgical consultation and medical management, complex medical management. Coding Level of Care Code 54742 Diagnoses Sepsis A41.9 Cellulitis of leg without foot, left L03.116 DM type 2 (diabetes mellitus, type 2) E11.9 Oral violeta B37.0 Hyperlipemia, mixed E78.2
--- NOTE | 2025-09-13 09:39 | P.PN_ITS ---
Subjective 2 Subjective: No acute events overnight Cellulitis improving Vitals/I&O/Wt Last Vital Signs Temp 99.6 F 09/13/25 07:28 Pulse 89 09/13/25 07:28 Resp 16 09/13/25 07:28 BP 110/71 09/13/25 07:28 Pulse Ox 90 09/13/25 07:28 O2 Del Method Room Air 09/13/25 07:28 09/12/25 09/13/25 09/13/25 22:59 06:59 14:59 Intake Total 2200 / 3900 350 / 4250 60 / 60 Output Total 950 / 950 650 / 650 Balance 1250 / 2950 350 / 3300 -590 / -590 Weight last 48 hrs Weight 310 lb 5 oz Weight 310 lb 5 oz Weight 305 lb Weight 299 lb Physical Exam 2 Narrative: Chest: Unlabored breathing room air. No lymphadenopathy. Heart: Regular rate and rhythm. Abdomen: Soft, nontender, nondistended. No masses or lymphadenopathy. Left lower extremity cellulitis improving Data 09/14/25 05:26 09/14/25 05:26 Micro: Microbiology 09/11/25 13:54 Blood Culture - Preliminary Blood NEGATIVE TO DATE 09/11/25 13:53 Blood Culture - Preliminary Blood NEGATIVE TO DATE A&P Assessment and plan 1. Left leg cellulitis: Plan: 25-year-old male whom surgery was consulted for left lower extremity cellulitis. No indication for surgery. Continue antibiotics. Rest of care per medicine. PDMP PDMP Reviewed: Not Reviewed Attestations 2 Medical Necessity Statement*: N/A Coding Level of Care Code 83592 Diagnoses Left leg cellulitis L03.116
[2025-09-13] MEDS: chlorhexidine gluconate 4% Btl 118 mL 1 APPLIC TOPICAL (10:44)
--- NOTE | 2025-09-13 11:48 | P.PN_ITS ---
Subjective 2 Subjective: infectious disease progress note LE cellulitis appears better today, slowly improving last febrile 09/11 at 12 pm leukocytosis resolved Blister over posterior aspect slightly larger, fluid filled, no pus, expected evolution Vitals/I&O/Wt Last Vital Signs Temp 98.1 F 09/13/25 11:29 Pulse 87 09/13/25 11:29 Resp 17 09/13/25 11:29 BP 103/65 09/13/25 11:29 Pulse Ox 92 09/13/25 11:29 O2 Del Method Room Air 09/13/25 11:29 09/12/25 09/13/25 09/13/25 22:59 06:59 14:59 Intake Total 2200 / 3900 350 / 4250 107.083 / 107.083 Output Total 950 / 950 650 / 650 Balance 1250 / 2950 350 / 3300 -542.917 / -542.917 Weight last 48 hrs Weight 140.755 kg Weight 140.755 kg Weight 138.346 kg Weight 135.624 kg Physical Exam 2 Narrative: General: No acute distress, AO x3 HEENT: PERRLA, pupils bilaterally equal and reactive, pallors not present, healing folliculitis over inferior aspect of the chin Abdomen: Soft, nontender, no organomegaly, bowel sounds present, multiple small healing folliculitis over the abdomen. Small ulceration over the right lateral aspect of the thigh from scratching. Several scars noted over the abdomen from prior healed lesions. Neuro: No focal deficits, no facial deformity, AO x3, power 5/5 in all limbs EXT: LLE shallow ulcer over sweeney of tibia middle part, surrouding circumferential cellulitis slightly imprved compared to 09/12. Fluid filled blister noted posteriorly Data 09/13/25 05:26 09/13/25 05:26 Micro: Microbiology 09/11/25 13:54 Blood Culture - Preliminary Blood NEGATIVE TO DATE 09/11/25 13:53 Blood Culture - Preliminary Blood NEGATIVE TO DATE A&P Assessment and plan 1. Left leg cellulitis: 2. Cellulitis of leg without foot, left: Plan: 25-year-old male with uncontrolled diabetes mellitus with A1c of 12, currently admitted to the hospital with left lower extremity cellulitis, which appears to have started initially as a smaller lesion. Review of chart and patient's examination show patient has had recurrent episodes of folliculitis which are in various stages of healing currently some with scarring noted in the past. 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 Previous wound cultures have shown group B strep and MSSA. Currently blood culture is pending. CT of the leg without any drainable abscess. Blister noted on the posterior aspect. Continue empiric treatment with piperacillin/tazobactam and vancomycin for now. Based on progress and pending culture results we will attempt to narrow antibiotic coverage Encourage strict compliance with diabetes management. Will follow 09/13/25 LLE cellulitis improving, crusting noted around mid sweeney shallow ulcer, continue iv Zosyn and vancomycin for now. Anticipate transition to oral abx in the upcoming 24 hrs if continues to improve PDMP PDMP Reviewed: Not Reviewed Attestations 2 Medical Necessity Statement*: per admitting note Coding Level of Care Code Acute Code for Chg Fwd Diagnoses Left leg cellulitis L03.116 Cellulitis of leg without foot, left L03.116
[2025-09-13] MEDS: HYDROcodone-acetaminophen 5-325 mg Tablet 1 TAB PO (12:29)
[2025-09-13] MEDS: pantoprazole 40 mg SDV IVP (16:59)
[2025-09-14] VITALS (8 sets, daily range): BP systolic 98–138; BP diastolic 60–75; PULSE 76–90; RESP 16–18; TEMP 36.4–36.9; O2SAT 94–96
[2025-09-14] MEDS: insulin glargine 100 units/1 mL 40 UNIT SUBCUT (04:37)
[2025-09-14] MEDS: nystatin 100,000 unit/mL UDC 5 mL 500000 UNIT PO ×3 (04:38→17:32)
[2025-09-14] MEDS: HYDROcodone-acetaminophen 5-325 mg Tablet 1 TAB PO (05:03)
[2025-09-14 05:45] LABS: Hematocrit 32.6 % (37-53); Hemoglobin 10.40 g/dL (11.27-16.99); Mean Corpuscular HGB Conc 31.9 g/dL (30-55); Mean Corpuscular Hemoglobin 25.4 pg (27-33); Mean Corpuscular Volume 79.7 fl (82-101); Nucleated Red Blood Cells % 0 %; Platelet Count 112 10^3/cmm (157-399); Red Blood Count 4.09 10^6/uL (3.85-5.65); White Blood Count 7.96 10^3/uL (3.29-11.43)
[2025-09-14 05:56] LABS: Alanine Aminotransferase 24 U/L (0-41); Albumin Level 2.7 g/dL (3.5-5.2); Alkaline Phosphatase 66 U/L (40-130); Anion Gap 11.6 (5-19); Aspartate Amino Transferase 31 U/L (0-40); Blood Urea Nitrogen 8 mg/dL (6-20); Calcium 8.2 mg/dL (8.5-10.5); Carbon Dioxide 26 mmol/L (22-29); Chloride 101 mmol/L (98-107); Globulin 4.0 g/dL (1.3-4.6); Glucose 173 mg/dL (65-115); Magnesium 1.8 mg/dL (1.7-2.3); Osmolality Calculated 282 mOsm/kg (285-295); Potassium 3.6 mmol/L (3.5-5.1); Sodium 135 mmol/L (136-145); Total Protein 6.7 g/dL (6.6-8.7)
[2025-09-14] MEDS: piperacillin-tazobactam 3.375 GM in sodium chloride 0.9% (plus) 50 ML IV ×2 (06:45→15:05)
[2025-09-14] MEDS: chlorhexidine gluconate 4% Btl 118 mL 1 APPLIC TOPICAL (08:31)
--- NOTE | 2025-09-14 14:02 | P.PN_ITS ---
Subjective 2 Subjective: patient cont to be afebrile and improving, still having signs of chronic inflammation on the left leg leukocytosis resolved Blister over posterior aspect slightly larger, fluid filled, no pus Vitals/I&O/Wt Last Vital Signs Temp 97.5 F L 09/14/25 11:13 Pulse 76 09/14/25 11:13 Resp 18 09/14/25 11:13 BP 123/75 09/14/25 11:13 Pulse Ox 94 09/14/25 11:13 O2 Del Method Room Air 09/14/25 11:13 09/13/25 09/14/25 09/14/25 22:59 06:59 14:59 Intake Total 1333.958 / 1743.958 350 / 2093.958 470 / 470 Output Total 500 / 1150 Balance 1333.958 / 1093.958 -150 / 943.958 470 / 470 Weight last 48 hrs Weight 141.521 kg Weight 140.755 kg Physical Exam 2 Narrative: General: Alert and oriented, lying comfortably without any distress, exam limited due to morbid obesity HEENT: Normocephalic, atraumatic, grossly unremarkable exam Cardio: normal rate rhythm, normal S1-S2 without any murmurs, limited exam Respiratory: normal vascular breathing on auscultation without any wheezes,limited exam GI: Abdomen soft, nontender, nondistended, normoactive bowel sounds present all 4 quadrants, Neuro: grossly unremarkable and no focal neurological deficit Behavior: Appropriate and cooperative Extremities: Adequate palpable pulses, left sided leg with chronic inflammation signs and edema and blister on the heel with a wound on the mid sweeney with some slough and a scab, seems healing and no active pus or oozing observed. dorsalis pedis difficult to palpate Data 09/14/25 05:26 09/14/25 05:26 A&P Assessment and plan 1. Nonhealing ulcer of left lower leg with fat layer exposed: - ID on board - Patient still having left-sided chronic signs of inflammation with redness and skin thickness and an ulcer on the mid sweeney that seems to be healing but have mild slough but no active oozing or pus discharge - A large blister on the heel as well observed which is more or less of a small lemon size, does not seem to have pus or hematoma inside. - Pain is adequately controlled - Continue Zosyn and vancomycin - Blood cultures so far negative, follow the wound culture still pending, MRSA negative Follow ID recommendation - Wound care to continue and referral to wound care at the time of discharge - Patient need adequate diabetes control 2. Type 2 diabetes mellitus with other circulatory complication, with long-term current use of insulin: - uncontrolled diabetes mellitus with A1c of 12 - On insulin, there is concern of compliance as well since the patient diabetes is uncontrolled - Furthermore patient home conditions may also be an additional set that needs further evaluation for making sure that patient is compliant to the medications and may need support at home. - Continue insulin glargine 40 units and sliding scale accordingly - glucose monitoring - Emphasized on insulin and adequate blood glucose control - loss prevention manager consult for managing further postdischarge at home for adequate patient care through other services such as home health aide etc. if applicable to the patient. 3. Encounter for screening involving social determinants of health (SDoH): - Consider psych referral as well to further investigate any other personality/mood/social obstacles leading to noncompliance - loss prevention manager on board as well to further arrange any postdischarge support if patient needs and applicable and his condition to avoid any readmissions and better adherence to medication and optimization of his overall clinical condition 4. Morbid obesity with BMI of 45.0-49.9, adult: To be discharged with PCP follow-up and consideration of medical weight loss/bariatric options for morbid obesity PDMP PDMP Reviewed: Not Reviewed Attestations 2 Medical Necessity Statement*: the patient will stay overnight for further observation and to have field nurse case manager onboard for likely safe disposition of chronic cellulitis Time Spent in Patient Care: 16 - 35 minutes (>than 50% of time sp ent in counselling and/or direct pt care on unit) . Other Attestations: Patient condition has been discussed at length with the patient/family, I have independently reviewed the chart labs imaging/diagnostics/EKG. the goals of care and code status with the patient/family/NOK/legal loan representative, and documented accordingly. The management has been done according to the current clinical condition with respect to patient goals of care and based on recommendations/guidelines. The patient/family has been informed about the current condition and further plan of care. Agreed with the plan of care and understood without any language barrier. Every effort was made to ensure accuracy of flight attendant ramp. Any obvious errors or omissions should be clarified with the author of the document. Coding Level of Care Code 61357 Diagnoses Nonhealing ulcer of left lower leg with fat layer exposed L97.922 Type 2 diabetes mellitus with other circulatory complication, with long-term current use of insulin E11.59; Z79.4 Diabetes mellitus correction insulin use: with terminal computer operator use Diabetes mellitus complication status: with circulatory complication Diabetes mellitus complication detail: with other circulatory complications Encounter for screening involving social determinants of health (SDoH) Z13.9 Morbid obesity with BMI of 45.0-49.9, adult E66.01; Z68.42
[2025-09-14] MEDS: pantoprazole 40 mg SDV IVP (17:32)
--- NOTE | 2025-09-14 19:00 | PM.PN ---
Subjective Subjective: Infectious disease progress note Patient states he was able to bear weight on his left foot today. Area of cellulitis appears the same, deep red in color today. Blister over the posterior aspect has increased in size to 11 size today. Additionally some new fluid-filled blister just above the ankle, new compared to previous exam yesterday. No leukocytosis. He is afebrile. Medications: Reviewed: Yes Vitals/I&O/Wt Last Vital Signs Temp 97.7 F 09/14/25 15:39 Pulse 80 09/14/25 15:39 Resp 16 09/14/25 15:39 BP 117/69 09/14/25 15:39 Pulse Ox 94 09/14/25 15:39 O2 Del Method Room Air 09/14/25 15:39 09/14/25 09/14/25 09/14/25 06:59 14:59 22:59 Intake Total 350 / 2093.958 470 / 470 41.667 / 511.667 Output Total 500 / 1150 600 / 600 Balance -150 / 943.958 470 / 470 -558.333 / -88.333 Weight last 48 hrs Weight 141.521 kg Weight 140.755 kg Physical Exam Narrative: General: No acute distress, AO x3 HEENT: PERRLA, pupils bilaterally equal and reactive, pallors not present, healing folliculitis over inferior aspect of the chin Abdomen: Soft, nontender, no organomegaly, bowel sounds present, multiple small healing folliculitis over the abdomen. Small ulceration over the right lateral aspect of the thigh from scratching. Several scars noted over the abdomen from prior healed lesions. Neuro: No focal deficits, no facial deformity, AO x3, power 5/5 in all limbs EXT: LLE shallow ulcer over sweeney of tibia middle part, surrouding circumferential cellulitis slightly imprved compared to 09/12. Fluid filled blister noted posteriorly noted to be increased in size. Additional anterior blistering noted. Data 09/14/25 05:26 09/14/25 05:26 Micro: Microbiology 09/13/25 12:30 Gram Stain - Final Leg - Left A&P Assessment and plan 1. Left leg cellulitis: 2. Cellulitis of leg without foot, left: Plan: 25-year-old male with uncontrolled diabetes mellitus with A1c of 12, currently admitted to the hospital with left lower extremity cellulitis, which appears to have started initially as a smaller lesion. Review of chart and patient's examination show patient has had recurrent episodes of folliculitis which are in various stages of healing currently some with scarring noted in the past. 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 Previous wound cultures have shown group B strep and MSSA. Currently blood culture is pending. CT of the leg without any drainable abscess. Blister noted on the posterior aspect. Continue empiric treatment with piperacillin/tazobactam and vancomycin for now. Based on progress and pending culture results we will attempt to narrow antibiotic coverage Encourage strict compliance with diabetes management. Will follow 09/13/25 LLE cellulitis improving, crusting noted around mid sweeney shallow ulcer, continue iv Zosyn and vancomycin for now. Anticipate transition to oral abx in the upcoming 24 hrs if continues to improve 09/14/2025 Area of cellulitis appears the same, however blistering has increased posteriorly. Additionally new blistering developing anteriorly just above the ankle over sweeney. Clear serous fluid noted in the blisters. Patient does complain of some tenderness over the posterior blister. Gram stain taken from anterior sweeney ulcer yesterday showing rare gram-positive cocci in pairs on gram staining. Culture pending. Discontinue vancomycin. Start linezolid 600 mg every 12 hours to cover for potential VRE strains given stalled improvement. Continue piperacillin/tazobactam for now. PDMP PDMP Reviewed: Not Reviewed Attestations Medical Necessity Statement*: Per admitting note Coding Level of Care Code Acute Code for [facility] Diagnoses Left leg cellulitis L03.116 Cellulitis of leg without foot, left L03.116
[2025-09-15] MEDS: nystatin 100,000 unit/mL UDC 5 mL 500000 UNIT PO ×5 (00:50→22:03)
[2025-09-15] MEDS: piperacillin-tazobactam 3.375 GM in sodium chloride 0.9% (plus) 50 ML IV ×4 (00:50→22:04)
[2025-09-15 03:31] VITALS: BP 112/78; PULSE 74; RESP 16; TEMP 36.9; O2SAT 95
[2025-09-15 05:07] LABS: Hematocrit 33.2 % (37-53); Hemoglobin 10.80 g/dL (11.27-16.99); Mean Corpuscular HGB Conc 32.5 g/dL (30-55); Mean Corpuscular Hemoglobin 25.7 pg (27-33); Mean Corpuscular Volume 79.0 fl (82-101); Nucleated Red Blood Cells % 0 %; Platelet Count 127 10^3/cmm (157-399); Red Blood Count 4.20 10^6/uL (3.85-5.65); White Blood Count 6.94 10^3/uL (3.29-11.43)
[2025-09-15] MEDS: insulin glargine 100 units/1 mL 40 UNIT SUBCUT (05:13)
[2025-09-15 05:38] LABS: Alanine Aminotransferase 20 U/L (0-41); Albumin Level 2.8 g/dL (3.5-5.2); Alkaline Phosphatase 71 U/L (40-130); Anion Gap 11.1 (5-19); Aspartate Amino Transferase 27 U/L (0-40); Blood Urea Nitrogen 5 mg/dL (6-20); Calcium 8.4 mg/dL (8.5-10.5); Carbon Dioxide 25 mmol/L (22-29); Chloride 103 mmol/L (98-107); Globulin 3.8 g/dL (1.3-4.6); Glucose 173 mg/dL (65-115); Osmolality Calculated 283 mOsm/kg (285-295); Potassium 3.1 mmol/L (3.5-5.1); Sodium 136 mmol/L (136-145); Total Protein 6.6 g/dL (6.6-8.7)
[2025-09-15 06:00] VITALS: PULSE 79
[2025-09-15 07:21] VITALS: BP 106/71; PULSE 80; RESP 15; TEMP 36.7; O2SAT 96
[2025-09-15] MEDS: chlorhexidine gluconate 4% Btl 118 mL 1 APPLIC TOPICAL (08:28)
--- NOTE | 2025-09-15 08:43 | P.PN_ITS ---
Subjective 2 Subjective: Left lower extremity cellulitis present Vitals/I&O/Wt Last Vital Signs Temp 98.1 F 09/15/25 07:21 Pulse 80 09/15/25 07:21 Resp 15 09/15/25 07:21 BP 106/71 09/15/25 07:21 Pulse Ox 96 09/15/25 07:21 O2 Del Method Room Air 09/15/25 07:21 09/14/25 09/15/25 09/15/25 22:59 06:59 14:59 Intake Total 461.667 / 931.667 170 / 1101.667 Output Total 800 / 800 700 / 1500 Balance -338.333 / 131.667 -530 / -398.333 Weight last 48 hrs Weight 318 lb 8 oz Weight 312 lb Physical Exam 2 Narrative: Chest: Unlabored breathing room air. No lymphadenopathy. Heart: Regular rate and rhythm. Abdomen: Soft, nontender, nondistended. No masses or lymphadenopathy. Left lower extremity cellulitis present. Edematous. There are couple blisters secondary to edema. No fluctuance. Data 09/18/25 04:44 09/18/25 04:44 Micro: Microbiology 09/13/25 12:30 Gram Stain - Final Leg - Left A&P Assessment and plan 1. Left leg cellulitis: Plan: 25-year-old male who presents with left lower extremity cellulitis. Continue antibiotics. No abscess to drain. Needs Unna boot from wound care as outpatient to address edema. PDMP PDMP Reviewed: Not Reviewed Attestations 2 Medical Necessity Statement*: N/A Coding Level of Care Code 38846 Diagnoses Left leg cellulitis L03.116
[2025-09-15 11:43] VITALS: BP 108/72; PULSE 76; RESP 15; TEMP 36.7; O2SAT 98
--- NOTE | 2025-09-15 14:39 | PM.PN ---
Subjective Subjective: The patient was seen sitting on the chair, he still having the blister on the back of his left heel and still increasing in size seems to be fluid-filled no hematoma or pus discharge seen There are several other blisters that have coalesced in front of on the mid sweeney with chronic inflammatory changes The patient did not report any pain, fever and lab parameters advised he is improving Medications: Reviewed: Yes Vitals/I&O/Wt Last Vital Signs Temp 98.1 F 09/15/25 11:43 Pulse 76 09/15/25 11:43 Resp 15 09/15/25 11:43 BP 108/72 09/15/25 11:43 Pulse Ox 98 09/15/25 11:43 O2 Del Method Room Air 09/15/25 11:43 09/14/25 09/15/25 09/15/25 22:59 06:59 14:59 Intake Total 461.667 / 931.667 170 / 1101.667 290 / 290 Output Total 800 / 800 700 / 1500 Balance -338.333 / 131.667 -530 / -398.333 290 / 290 Weight last 48 hrs Weight 144.469 kg Weight 141.521 kg Physical Exam Narrative: General: Alert and oriented, sitting on the chair comfortably without any distress, exam limited due to morbid obesity HEENT: Normocephalic, atraumatic, grossly unremarkable exam Cardio: normal rate rhythm, normal S1-S2 without any murmurs, limited exam Respiratory: normal vascular breathing on auscultation without any wheezes,limited exam GI: Abdomen soft, nontender, nondistended, normoactive bowel sounds present all 4 quadrants, Neuro: grossly unremarkable and no focal neurological deficit Behavior: Appropriate and cooperative Extremities: Adequate palpable pulses, left sided leg with chronic inflammation signs and edema and blister on the heel which is increasing since yesterday with a wound on the mid sweeney with some slough and a scab and also some mild blistering, seems healing and no active pus or oozing observed. Data 09/15/25 04:58 09/15/25 04:58 Micro: Microbiology 09/13/25 12:30 Gram Stain - Final Leg - Left Wound Culture - Preliminary A&P Assessment and plan 1. Cellulitis of leg without foot, left: - ID on board and started patient on linezolid 600 mg twice daily To cover any VRE on 09/14/2020 and Zosyn to continue. - Surgery on board and no intervention at the moment - Patient still having left-sided chronic signs of inflammation with redness and skin thickness and an ulcer on the mid sweeney that seems to be healing but have mild slough but no active oozing or pus discharge - A large blister on the heel as well observed which is more or less of a small lemon size, does not seem to have pus or hematoma inside. - Pain is adequately controlled. - Blood cultures so far negative, follow the wound culture preliminary negative, MRSA negative Follow ID recommendation - Wound care to continue and referral to wound care at the time of discharge - Patient need adequate diabetes control 2. DM type 2 (diabetes mellitus, type 2): - uncontrolled diabetes mellitus with A1c of 12 - On insulin, there is concern of medication compliance and social adherence as well - Home conditions and overall social status has to be evaluated through dependency case manager which could be a possible barrier and hindrance in his optimization of medical care postdischarge - Continue insulin glargine 40 units and sliding scale accordingly - glucose monitoring, currently controlled as inpatient - Emphasized on insulin and adequate blood glucose control. 3. Encounter for screening involving social determinants of health (SDoH): Consider psych referral as well to further investigate any other personality/mood/social obstacles leading to noncompliance - detail manager on board as well to further arrange any postdischarge support if patient needs and applicable and his condition to avoid any readmissions and better adherence to medication and optimization of his overall clinical condition 4. Morbid obesity with BMI of 45.0-49.9, adult: To be discharged with PCP follow-up and consideration of medical weight loss/bariatric options for morbid obesity PDMP PDMP Reviewed: Not Reviewed Attestations Medical Necessity Statement*: the patient will stay overnight for further observation and to have dependency case manager onboard for likely safe disposition of chronic cellulitis Time Spent in Patient Care: 16 - 35 minutes (>than 50% of time spent in counselling and/or direct pt care on unit). Other Attestations: Patient condition has been discussed at length with the patient/family, I have independently reviewed the chart labs imaging/diagnostics/EKG. the goals of care and code status with the patient/family/NOK/legal customer counter representative, and documented accordingly. The management has been done according to the current clinical condition with respect to patient goals of care and based on recommendations/guidelines. The patient/family has been informed about the current condition and further plan of care. Agreed with the plan of care and understood without any language barrier. Every effort was made to ensure accuracy of plater apprentice. Any obvious errors or omissions should be clarified with the author of the document. Coding Level of Care Code 47565 Diagnoses Cellulitis of leg without foot, left L03.116 DM type 2 (diabetes mellitus, type 2) E11.9 Encounter for screening involving social determinants of health (SDoH) Z13.9 Morbid obesity with BMI of 45.0-49.9, adult E66.01; Z68.42
[2025-09-15 15:22] VITALS: BP 152/74; PULSE 72; RESP 15; TEMP 36.7; O2SAT 98
[2025-09-15] MEDS: pantoprazole 40 mg SDV IVP (15:55)
[2025-09-15 19:53] VITALS: BP 114/70; PULSE 80; RESP 17; TEMP 36.6; O2SAT 98
[2025-09-16] VITALS: BP 112/71; PULSE 78; RESP 18; TEMP 36.7; O2SAT 96
[2025-09-16 04:00] VITALS: BP 111/70; PULSE 76; RESP 18; TEMP 36.7; O2SAT 95
[2025-09-16 04:43] LABS: Hematocrit 33.2 % (37-53); Hemoglobin 10.40 g/dL (11.27-16.99); Mean Corpuscular HGB Conc 31.3 g/dL (30-55); Mean Corpuscular Hemoglobin 24.6 pg (27-33); Mean Corpuscular Volume 78.5 fl (82-101); Nucleated Red Blood Cells % 0 %; Platelet Count 161 10^3/cmm (157-399); Red Blood Count 4.23 10^6/uL (3.85-5.65); White Blood Count 7.55 10^3/uL (3.29-11.43)
[2025-09-16] MEDS: nystatin 100,000 unit/mL UDC 5 mL 500000 UNIT PO ×4 (04:57→22:09)
[2025-09-16] MEDS: insulin glargine 100 units/1 mL 40 UNIT SUBCUT (04:57)
[2025-09-16 05:09] LABS: Alanine Aminotransferase 17 U/L (0-41); Albumin Level 2.7 g/dL (3.5-5.2); Alkaline Phosphatase 74 U/L (40-130); Anion Gap 12.1 (5-19); Aspartate Amino Transferase 25 U/L (0-40); Blood Urea Nitrogen 5 mg/dL (6-20); Calcium 8.4 mg/dL (8.5-10.5); Carbon Dioxide 25 mmol/L (22-29); Chloride 102 mmol/L (98-107); Globulin 3.9 g/dL (1.3-4.6); Glucose 130 mg/dL (65-115); Osmolality Calculated 281 mOsm/kg (285-295); Potassium 3.1 mmol/L (3.5-5.1); Sodium 136 mmol/L (136-145); Total Protein 6.6 g/dL (6.6-8.7)
[2025-09-16] MEDS: piperacillin-tazobactam 3.375 GM in sodium chloride 0.9% (plus) 50 ML IV ×3 (06:17→22:08)
[2025-09-16 07:26] VITALS: BP 112/69; PULSE 75; RESP 14; TEMP 36.7; O2SAT 93
[2025-09-16] MEDS: chlorhexidine gluconate 4% Btl 118 mL 1 APPLIC TOPICAL (09:50)
[2025-09-16 11:48] VITALS: BP 109/71; PULSE 74; RESP 15; TEMP 36.4; O2SAT 97
--- NOTE | 2025-09-16 15:20 | P.PN_ITS ---
Subjective 2 Subjective: The patient was seen sitting on the chair, Small blister is left on the back of her heel which has ruptured and is oozing straw-colored fluid without any pus There are several other blisters that have coalesced in front of on the mid sweeney with chronic inflammatory changes and seems currently improving Hypokalemia, KCl supplementation provided The patient did not report any pain, fever and lab parameters advised he is improving Medications: Reviewed: Yes Vitals/I&O/Wt Last Vital Signs Temp 97.5 F L 09/16/25 11:48 Pulse 74 09/16/25 11:48 Resp 15 09/16/25 11:48 BP 109/71 09/16/25 11:48 Pulse Ox 97 09/16/25 11:48 O2 Del Method Room Air 09/16/25 11:48 09/16/25 09/16/25 09/16/25 06:59 14:59 22:59 Intake Total 150 / 610 290 / 290 Output Total 400 / 1000 350 / 350 Balance -250 / -390 -60 / -60 Weight last 48 hrs Weight 146.102 kg Weight 144.469 kg Physical Exam 2 Narrative: General: Alert and oriented, sitting on the chair comfortably without any distress, exam limited due to morbid obesity HEENT: Normocephalic, atraumatic, grossly unremarkable exam Cardio: normal rate rhythm, normal S1-S2 without any murmurs, limited exam Respiratory: normal vascular breathing on auscultation without any wheezes,limited exam GI: Abdomen soft, nontender, nondistended, normoactive bowel sounds present all 4 quadrants, Neuro: grossly unremarkable and no focal neurological deficit Behavior: Appropriate and cooperative Extremities: Adequate palpable pulses, left sided leg with chronic inflammation signs and edema and a Small blister is left on the back of her heel which has ruptured and is oozing straw-colored fluid without any pus Data 09/16/25 04:10 09/16/25 04:10 Micro: Microbiology 09/11/25 13:54 Blood Culture - Final Blood NO GROWTH AFTER 5 DAYS 09/11/25 13:53 Blood Culture - Final Blood NO GROWTH AFTER 5 DAYS 09/13/25 12:30 Gram Stain - Final Leg - Left Wound Culture - Final Staphylococcus aureus A&P Assessment and plan 1. Cellulitis of leg without foot, left: - ID on board and started patient on linezolid 600 mg twice daily To cover any VRE on 09/14/2020 and Zosyn to continue. - Surgery on board and no intervention at the moment - Pain is adequately controlled. - Blood cultures so far negative, MRSA negative -Left leg wound showed Staph aureus sensitive - Wound care to continue and referral to wound care at the time of discharge - Patient need adequate diabetes control 2. Type 2 diabetes mellitus with other circulatory complication, with long-term current use of insulin: - uncontrolled diabetes mellitus with A1c of 12 - On insulin, there is concern of medication compliance and social adherence as well - Home conditions and overall social status has to be evaluated through child support case officer which could be a possible barrier and hindrance in his optimization of medical care postdischarge - Continue insulin glargine 40 units and sliding scale accordingly - glucose monitoring, currently controlled as inpatient - Emphasized on insulin and adequate blood glucose control. 3. Encounter for screening involving social determinants of health (SDoH): - Dr. Saavedra from psych consulted to further investigate any other personality/mood/social obstacles leading to noncompliance. - manager therapy on board and for further plan to be discharged on Thursday with [facility] assessment if the patient qualifies for any support as disability incentives based on his intellectual/other personality/social barriers and to avoid any readmissions and better adherence to medication and optimization of his overall clinical condition - Based on my evaluation there is some intellectual lag in the family and the patient as well? to understand the current situation of the patient and his need of adherence to his diabetic regimen, uncontrolled diabetes, chronic left leg cellulitis at this young age which is compromising his quality of life. Therefore psych evaluation is needed in this case to optimize patient care as a whole. 4. Morbid obesity with BMI of 45.0-49.9, adult: To be discharged with PCP follow-up and consideration of medical weight loss/bariatric options for morbid obesity PDMP PDMP Reviewed: Not Reviewed Attestations 2 Medical Necessity Statement*: Patient will stay over the weekend for the management of his chronic left leg cellulitis, uncontrolled diabetes and addressing social determinants for safe discharge and avoiding readmissions Time Spent in Patient Care: 16 - 35 minutes (>than 50% of time sp ent in counselling and/or direct pt care on unit) . Other Attestations: Patient condition has been discussed at length with the patient/family, I have independently reviewed the chart labs imaging/diagnostics/EKG. the goals of care and code status with the patient/family/NOK/legal automobile rental representative, and documented accordingly. The management has been done according to the current clinical condition with respect to patient goals of care and based on recommendations/guidelines. The patient/family has been informed about the current condition and further plan of care. Agreed with the plan of care and understood without any language barrier. Every effort was made to ensure accuracy of linoleum tile floor layer. Any obvious errors or omissions should be clarified with the author of the document. Coding Level of Care Code Acute Code for Chg Fwd Diagnoses Cellulitis of leg without foot, left L03.116 Type 2 diabetes mellitus with other circulatory complication, with long-term current use of insulin E11.59; Z79.4 Diabetes mellitus termination clerk insulin use: with termination clerk use Diabetes mellitus complication status: with circulatory complication Diabetes mellitus complication detail: with other circulatory complications Encounter for screening involving social determinants of health (SDoH) Z13.9 Morbid obesity with BMI of 45.0-49.9, adult E66.01; Z68.42
[2025-09-16 15:30] VITALS: BP 107/70; PULSE 74; RESP 15; TEMP 36.7; O2SAT 98
[2025-09-16] MEDS: pantoprazole 40 mg SDV IVP (17:46)
--- NOTE | 2025-09-16 18:02 | W.PM.NPUH&PS ---
Providers/Chief Complaint Admitting Physician: Srini Suhltz MD Primary Care Provider: Geoffrey Pryor MD Chief Complaint: leg infection HPI NPU History of Present Illness Oliver Humphreys is a 25 year old male who presented to the emergency department with the following report: Chief complaint: Extremity Problem,Nontraumatic Stated complaint: leg infection Source: patient and old records reviewed Mode of arrival: EMS Limitations: no limitations History of Present Illness: Patient is a 25-year-old male with past medical history of morbid obesity, type 2 diabetes, and chronic cellulitis of left lower extremity who presents to the emergency department by ambulance for complaints of continued infection to his left leg. Notes that he has felt nauseous as well, and has had chills and felt feverish at home. He is a noncompliant diabetic, states that sometimes he forgets to take his medications. Fingerstick glucose at bedside is 500. Notes severe pain to the left leg, expanding redness, swelling, and inability to ambulate secondary to his symptoms. He is tachycardic and febrile, chronically ill appearing at time of examination. He has no reports of vomiting. No distal neurovascular deficits. He had previously been seeing wound care last year for evaluation, maintenance, and debridement of the same wound. MD Complaint: extremity pain and extremity swelling Onset (ago): day(s) Pain Consistency: constant Location: left and lower extremity Associated symptoms: Reports fever(s); Deny chest pain. He was admitted to the ICU for definitive treatment of those issues. And in the course of conversation with patient significant concerns were raised by the treating physician concerning his capacity for decision making as well as his ability to understand the seriousness and complexity of his condition. Met briefly with the patient where he was open to answering the questions but was mostly of the position that these were questions that should be answered by his mother. He expressed a desire for me to speak to her first and so we discussed some basic issues surrounding his condition and he identified that he was not aware that poor treatment of his diabetes could in an insidious fashion lead to blindness, lack of sexual functioning, frequent infections, possible partial or complete loss of limb and ultimately life. We discussed this being some basic information in relation to diabetes and that his lack of managing his disease likely led to his current situation that included an ICU visit and now multiple days of hospitalization. 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 But he denied inpatient psychiatric hospitalization or any significant outpatient psychiatric treatment or follow-up. He denied any known history of psychiatric medications or psychiatric diagnoses denying issues of depression, psychosis, OCD, PTSD. He did endorse some limited social functioning, having friends only online, unclear academic and cognitive ability but that he did not finish school but he attributed this not to his cognitive abilities but to a ill timed move. Meds NPU Home Medications ?Medication ?Instructions ?Recorded ?Confirmed ?Last Taken ?Type reli glucometer and strips #1 ea 11/14/22 09/11/25 Unknown Rx blood-glucose sensor (FreeStyle #2 ea 01/19/24 09/11/25 Unknown Rx Sonia 3 Sensor device) blood-glucose,electronic train control technician,cont #1 ea 01/19/24 09/11/25 Unknown Rx (FreeStyle Sonia 3 Wiley) insulin glargine 100 unit/mL (3 40 unit (0.4 mL) SUBCUT QAM #15 mL 01/19/24 09/11/25 Unknown Rx mL) subcutaneous pen (Lantus Solostar U-100 Insulin) cefadroxil 1 gram tablet 1,000 mg PO BID PRN cellulitis 5 09/13/25 Unknown Rx days #10 tabs Allergies Allergy/AdvReac Type Severity Reaction Status Date / Time No Known Allergies Allergy Verified 05/17/24 07:23 PFS NPU PFSH: Medical History (Updated 09/17/25 @ 07:20 by Jarett Saavedra MD) Cellulitis of leg without foot, left Nonhealing ulcer of left lower leg with fat layer exposed Morbid obesity with BMI of 45.0-49.9, adult DM type 2 (diabetes mellitus, type 2) Neck abscess Surgical History History of incision and drainage History of tonsillectomy Family History Mother Diabetes Denies family history of Anesthesia complication Bleeding disorder Social History Smoking and tobacco/nicotine status: former use of tobacco/nicotine Alcohol intake: never Substance/Drug Use: never Household members: family Highest education level completed: 11th Grade Mental Status Exam MSE Comments: This is an obese versus morbidly obese white male in hospital gown with limited grooming and eye contact. No abnormal movements except for mild psychomotor retardation. Mostly cooperative with exam and no acute distress. Speech was decreased rate and volume with some mild speech impediment. Mood described as fine, affect slightly subdued and with a significant laissez-faire attitude in relation to discussions about the seriousness of his diabetes and the impact of not managing it when he is not in the hospital. Thought process linear. Thought content: Patient denied suicidal or homicidal ideation, there were no delusions reported or noted, he denied auditory visual hallucinations. Attention and concentration appeared intact and memory was mostly unreliable but none were formally tested. He is alert and oriented to person and place. Insight, judgment and impulse control were limited versus impaired. Intellectual ability was limited versus impaired. Vitals/I&O/Wt Last Vital Signs Temp 98.0 F 09/16/25 19:35 Pulse 78 09/16/25 19:35 Resp 18 09/16/25 19:35 BP 124/81 09/16/25 19:35 Pulse Ox 98 09/16/25 19:35 O2 Del Method Room Air 09/16/25 19:35 Weight last 48 hrs Weight 143.743 kg Weight 146.102 kg Data NPU 09/17/25 03:18 09/17/25 03:18 Micro: Microbiology 09/11/25 13:54 Blood Culture - Final Blood NO GROWTH AFTER 5 DAYS 09/11/25 13:53 Blood Culture - Final Blood NO GROWTH AFTER 5 DAYS 09/13/25 12:30 Gram Stain - Final Leg - Left Wound Culture - Final Staphylococcus aureus Microbiology 09/11/25 13:54 Blood Blood Culture - Final NO GROWTH AFTER 5 DAYS 09/11/25 13:53 Blood Blood Culture - Final NO GROWTH AFTER 5 DAYS 09/13/25 12:30 Leg - Left Gram Stain - Final 09/13/25 12:30 Leg - Left Wound Culture - Final Staphylococcus aureus A&P Assessment and plan 1. DM type 2 (diabetes mellitus, type 2): 2. Morbid obesity with BMI of 45.0-49.9, adult: 3. Anxiety: 4. 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 1. Continue current medication. 2. Will return tomorrow and have a more thorough exploration of his capacity for medical decision making. 3. Obtain collateral information having obtained mother's number and permission for patient to speak with mother we will try to get a better picture of his functioning and history. As many of his answers were my mother would be better answering a question. 4. No credible lethality or concerns for intentional self-harm but question whether he is capable of functioning independently. 5. Will continue to follow. PDMP PDMP Reviewed: Not Reviewed Attestations NPU Medical Necessity Statement*: N/A. Please see primary team note for medical necessity. Coding Level of Care Code Acute Code for Chg Fwd Diagnoses DM type 2 (diabetes mellitus, type 2) E11.9 Morbid obesity with BMI of 45.0-49.9, adult E66.01; Z68.42 Anxiety F41.9 Borderline intellectual functioning R41.83
[2025-09-16 19:35] VITALS: BP 124/81; PULSE 78; RESP 18; TEMP 36.7; O2SAT 98
[2025-09-17] VITALS (7 sets, daily range): BP systolic 106–145; BP diastolic 70–88; PULSE 69–78; RESP 15–17; TEMP 36.4–36.8; O2SAT 95–100
[2025-09-17 03:59] LABS: Hematocrit 31.7 % (37-53); Hemoglobin 10.00 g/dL (11.27-16.99); Mean Corpuscular HGB Conc 31.5 g/dL (30-55); Mean Corpuscular Hemoglobin 24.9 pg (27-33); Mean Corpuscular Volume 79.1 fl (82-101); Nucleated Red Blood Cells % 0 %; Platelet Count 176 10^3/cmm (157-399); Red Blood Count 4.01 10^6/uL (3.85-5.65); White Blood Count 6.93 10^3/uL (3.29-11.43)
[2025-09-17 04:32] LABS: Alanine Aminotransferase 16 U/L (0-41); Albumin Level 2.8 g/dL (3.5-5.2); Alkaline Phosphatase 72 U/L (40-130); Anion Gap 11.2 (5-19); Aspartate Amino Transferase 21 U/L (0-40); Blood Urea Nitrogen 5 mg/dL (6-20); Calcium 8.6 mg/dL (8.5-10.5); Carbon Dioxide 28 mmol/L (22-29); Chloride 105 mmol/L (98-107); Globulin 4.1 g/dL (1.3-4.6); Glucose 154 mg/dL (65-115); Osmolality Calculated 292 mOsm/kg (285-295); Potassium 3.2 mmol/L (3.5-5.1); Sodium 141 mmol/L (136-145); Total Protein 6.9 g/dL (6.6-8.7)
[2025-09-17] MEDS: insulin glargine 100 units/1 mL 40 UNIT SUBCUT (04:50)
[2025-09-17] MEDS: chlorhexidine gluconate 4% Btl 118 mL 1 APPLIC TOPICAL (04:50)
[2025-09-17] MEDS: nystatin 100,000 unit/mL UDC 5 mL 500000 UNIT PO ×4 (04:50→23:11)
[2025-09-17] MEDS: piperacillin-tazobactam 3.375 GM in sodium chloride 0.9% (plus) 50 ML IV ×3 (05:52→23:11)
--- NOTE | 2025-09-17 09:50 | P.PN_ITS ---
Subjective 2 Subjective: Left lower extremity cellulitis Vitals/I&O/Wt Last Vital Signs Temp 98.1 F 09/17/25 07:37 Pulse 72 09/17/25 07:37 Resp 15 09/17/25 07:37 BP 145/88 09/17/25 07:37 Pulse Ox 95 09/17/25 07:37 O2 Del Method Room Air 09/17/25 07:37 09/16/25 09/17/25 09/17/25 22:59 06:59 14:59 Intake Total 50 / 340 50 / 390 Output Total 250 / 600 Balance -200 / -260 50 / -210 Weight last 48 hrs Weight 316 lb 14.4 oz Weight 322 lb 1.6 oz Physical Exam 2 Narrative: Chest: Unlabored breathing room air. No lymphadenopathy. Heart: Regular rate and rhythm. Abdomen: Soft, nontender, nondistended. No masses or lymphadenopathy. Left lower extremity cellulitis present. No fluctuance. Data 09/18/25 04:44 09/18/25 04:44 Micro: Microbiology 09/11/25 13:54 Blood Culture - Final Blood NO GROWTH AFTER 5 DAYS 09/11/25 13:53 Blood Culture - Final Blood NO GROWTH AFTER 5 DAYS 09/13/25 12:30 Gram Stain - Final Leg - Left Wound Culture - Final Staphylococcus aureus A&P Assessment and plan 1. Left leg cellulitis: Plan: 25-year-old male with left lower extremity cellulitis. Continue antibiotics. No abscess to drain. Needs Unna boot as outpatient from wound care. PDMP PDMP Reviewed: Not Reviewed Attestations 2 Medical Necessity Statement*: N/A Coding Level of Care Code 68856 Diagnoses Left leg cellulitis L03.116
--- NOTE | 2025-09-17 12:25 | P.PN_ITS ---
Subjective 2 Subjective: Patient was seen lying on the bed, overall left leg cellulitis improving. The heel blister has ruptured and is oozing straw-colored fluid without pus. The blisters on the front near the scab in the mid sweeney are still oozing slowly but seems overall improvement is evident. Hypokalemia, KCl supplementation provided The patient did not report any pain, fever and lab parameters advised he is improving Patient was seen by the psychiatrist and as per his evaluation the patient seems to exhibit borderline intellectual functioning Medications: Reviewed: Yes Vitals/I&O/Wt Last Vital Signs Temp 98.1 F 09/17/25 07:37 Pulse 72 09/17/25 07:37 Resp 15 09/17/25 07:37 BP 145/88 09/17/25 07:37 Pulse Ox 95 09/17/25 07:37 O2 Del Method Room Air 09/17/25 07:37 09/16/25 09/17/25 09/17/25 22:59 06:59 14:59 Intake Total 50 / 340 50 / 390 Output Total 250 / 600 Balance -200 / -260 50 / -210 Weight last 48 hrs Weight 143.743 kg Weight 146.102 kg Physical Exam 2 Narrative: General: Alert and oriented, lying on the bed comfortably without any distress, exam limited due to morbid obesity HEENT: Normocephalic, atraumatic, grossly unremarkable exam Cardio: normal rate rhythm, normal S1-S2 without any murmurs, limited exam Respiratory: normal vascular breathing on auscultation without any wheezes,limited exam GI: Abdomen soft, nontender, nondistended, normoactive bowel sounds present all 4 quadrants, Neuro: grossly unremarkable and no focal neurological deficit Behavior: Appropriate and cooperative Extremities: Adequate palpable pulses, left sided leg with chronic inflammation signs and edema and small blister ruptured on the back of heel and is oozing, blisters on the front of mid sweeney near the scab/ulcer are still oozing. Overall improvement in redness is seen Data 09/17/25 03:18 09/17/25 03:18 Micro: Microbiology 09/11/25 13:54 Blood Culture - Final Blood NO GROWTH AFTER 5 DAYS 09/11/25 13:53 Blood Culture - Final Blood NO GROWTH AFTER 5 DAYS 09/13/25 12:30 Gram Stain - Final Leg - Left Wound Culture - Final Staphylococcus aureus A&P Assessment and plan 1. Cellulitis of leg without foot, left: - ID on board and started patient on linezolid 600 mg twice daily To cover any VRE on 09/14/2020 and Zosyn to continue. - Surgery on board and no intervention at the moment - Pain is adequately controlled. - Blood cultures so far negative, MRSA negative - Left leg wound showed Staph aureus sensitive - Wound care to continue and referral to wound care at the time of discharge - Patient need adequate diabetes control 2. Type 2 diabetes mellitus with other circulatory complication, with long-term current use of insulin: - uncontrolled diabetes mellitus with A1c of 12 - On insulin, there is concern of medication compliance and social adherence as well - Home conditions and overall social status has to be evaluated through case management rn which could be a possible barrier and hindrance in his optimization of medical care postdischarge - Continue insulin glargine 40 units and sliding scale accordingly - glucose monitoring, currently controlled as inpatient - Emphasized on insulin and adequate blood glucose control. 3. Encounter for screening involving social determinants of health (SDoH): - Dr. Saavedra from psych consulted and has also concern for his intellectual functioning that could be barrier to his uncontrolled diabetes and chronic left leg wound. - network operations manager on board and for further plan to be discharged on Thursday with [facility] assessment if the patient qualifies for any support as disability incentives based on his intellectual/other personality/social barriers and to avoid any readmissions and better adherence to medication and optimization of his overall clinical condition - Based on my evaluation there is some intellectual lag in the family and the patient as well? to understand the current situation of the patient and his need of adherence to his diabetic regimen, uncontrolled diabetes, chronic left leg cellulitis at this young age which is compromising his quality of life. Therefore psych evaluation is provided in this case to optimize patient care as a whole. 4. Morbid obesity with BMI of 45.0-49.9, adult: To be discharged with PCP follow-up and consideration of medical weight loss/bariatric options for morbid obesity PDMP PDMP Reviewed: Not Reviewed Attestations 2 Medical Necessity Statement*: Patient will stay over night for further discussion of his social concerns for borderline intellectual functioning as per psych evaluation safe plan of discharge to avoid readmissions Time Spent in Patient Care: 16 - 35 minutes (>than 50% of time sp ent in counselling and/or direct pt care on unit) . Other Attestations: Patient condition has been discussed at length with the patient/family, I have independently reviewed the chart labs imaging/diagnostics/EKG. the goals of care and code status with the patient/family/NOK/legal logistics service representative, and documented accordingly. The management has been done according to the current clinical condition with respect to patient goals of care and based on recommendations/guidelines. The patient/family has been informed about the current condition and further plan of care. Agreed with the plan of care and understood without any language barrier. Every effort was made to ensure accuracy of econometrician. Any obvious errors or omissions should be clarified with the author of the document. Coding Level of Care Code Acute Code for Chg Fwd Diagnoses Cellulitis of leg without foot, left L03.116 Type 2 diabetes mellitus with other circulatory complication, with long-term current use of insulin E11.59; Z79.4 Diabetes mellitus jail insulin use: with jail use Diabetes mellitus complication status: with circulatory complication Diabetes mellitus complication detail: with other circulatory complications Encounter for screening involving social determinants of health (SDoH) Z13.9 Morbid obesity with BMI of 45.0-49.9, adult E66.01; Z68.42
--- NOTE | 2025-09-17 13:42 | W.PM.NPUPNS ---
Subjective NPU Subjective: Patient presented today reporting that he is doing okay. 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 She reports that this led to significant difficulty with academics and she acknowledges his intellectual disability. She reports she has functional limitations and only does limited things at home when very specifically asked with very specific instructions. We discussed his treatment and the need for appropriate diabetes management at home which he identified that he he would be in support of if someone else was in charge of the when what and how. We discussed home health options as well as mother taking a larger role with acknowledgment that she does not have the capacity given expectations in her life to have this to be 100% of the days but we agreed it certainly could be a vast improvement and avoid medical comorbidities like he is experiencing now. Patient was agreeable to follow some kind of program with assistance to maximize his diabetes treatment. Mental Status Exam MSE Comments: This is an obese versus morbidly obese white male in hospital gown with limited grooming and eye contact. No abnormal movements except for mild psychomotor retardation. Mostly cooperative with exam and no acute distress. Speech was decreased rate and volume with some mild speech impediment. Mood described as fine, affect slightly subdued and with a significant laissez-faire attitude in relation to discussions about the seriousness of his diabetes and the impact of not managing it when he is not in the hospital. Thought process linear. Thought content: Patient denied suicidal or homicidal ideation, there were no delusions reported or noted, he denied auditory visual hallucinations. Attention and concentration appeared intact and memory was mostly unreliable but none were formally tested. He is alert and oriented to person and place. Insight, judgment and impulse control were limited versus impaired. Intellectual ability was limited versus impaired. Vitals/I&O/Wt Last Vital Signs Temp 98.0 F 09/17/25 11:34 Pulse 76 09/17/25 11:34 Resp 15 09/17/25 11:34 BP 113/74 09/17/25 11:34 Pulse Ox 98 09/17/25 11:34 O2 Del Method Room Air 09/17/25 11:34 Weight last 48 hrs Weight 142.201 kg Weight 143.743 kg Data NPU 09/18/25 04:44 12/01/25 04:44 A&P Assessment and plan 1. DM type 2 (diabetes mellitus, type 2): 2. Morbid obesity with BMI of 45.0-49.9, adult: 3. Anxiety: 4. 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 1. Continue current medication. 2. Had an opportunity to speak with mother and patient in the room today. Mother has significant diabetic history with sequela and patient acknowledged that if someone i.e. either his mother or home health were to be in charge of the administration of his insulin that he would be adherent to treatment. 3. Also discussed capacity being limited and guardianship and medical power of assistant district attorney were discussed and patient was not resistant to any proposal that could preserve his health but likely not have him be independently responsible for his welfare. 4. No credible lethality or concerns for intentional self-harm but question whether he is capable of functioning independently. 5. Will sign off. Please reconsult if indicated or there are additional questions. PDMP PDMP Reviewed: Not Reviewed Attestations NPU Medical Necessity Statement*: N/A. Please see primary team note for medical necessity. Coding Level of Care Code Acute Code for Chg Fwd Diagnoses DM type 2 (diabetes mellitus, type 2) E11.9 Morbid obesity with BMI of 45.0-49.9, adult E66.01; Z68.42 Anxiety F41.9 Borderline intellectual functioning R41.83
[2025-09-17] MEDS: pantoprazole 40 mg SDV IVP (17:54)
[2025-09-18 03:44] VITALS: BP 120/74; PULSE 74; RESP 16; TEMP 37.1; O2SAT 94
[2025-09-18 04:58] LABS: Hematocrit 32.1 % (37-53); Hemoglobin 10.10 g/dL (11.27-16.99); Mean Corpuscular HGB Conc 31.5 g/dL (30-55); Mean Corpuscular Hemoglobin 24.8 pg (27-33); Mean Corpuscular Volume 78.9 fl (82-101); Nucleated Red Blood Cells % 0 %; Platelet Count 192 10^3/cmm (157-399); Red Blood Count 4.07 10^6/uL (3.85-5.65); White Blood Count 7.05 10^3/uL (3.29-11.43)
[2025-09-18 05:18] LABS: Alanine Aminotransferase 12 U/L (0-41); Albumin Level 2.8 g/dL (3.5-5.2); Alkaline Phosphatase 63 U/L (40-130); Anion Gap 11.7 (5-19); Aspartate Amino Transferase 19 U/L (0-40); Blood Urea Nitrogen 5 mg/dL (6-20); Calcium 8.3 mg/dL (8.5-10.5); Carbon Dioxide 25 mmol/L (22-29); Chloride 104 mmol/L (98-107); Globulin 4.1 g/dL (1.3-4.6); Glucose 126 mg/dL (65-115); Osmolality Calculated 283 mOsm/kg (285-295); Potassium 3.7 mmol/L (3.5-5.1); Sodium 137 mmol/L (136-145); Total Protein 6.9 g/dL (6.6-8.7)
[2025-09-18] MEDS: nystatin 100,000 unit/mL UDC 5 mL 500000 UNIT PO (05:19)
[2025-09-18] MEDS: insulin glargine 100 units/1 mL 40 UNIT SUBCUT (05:20)
[2025-09-18] MEDS: piperacillin-tazobactam 3.375 GM in sodium chloride 0.9% (plus) 50 ML IV (06:27)
[2025-09-18 07:21] VITALS: BP 123/75; PULSE 75; RESP 15; TEMP 36.6; O2SAT 95
[2025-09-18 11:31] VITALS: BP 110/71; PULSE 76; RESP 14; TEMP 36.4; O2SAT 99
--- NOTE | 2025-09-18 17:29 | P.DS_ITS ---
Discharge Providers Date of Admission: 09/11/25 15:30 Date of Discharge: September 18, 2025 Attending Provider at Admission: Srini Shultz MD Attending Provider at Discharge: Reshma Small MD Primary Care Provider: Geoffrey Pryor MD Diagnoses at Discharge Discharge Diagnosis 1. Type 2 diabetes mellitus with other circulatory complication, with long-term current use of insulin: 2. Morbid obesity with BMI of 45.0-49.9, adult: 3. Anxiety: 4. Borderline intellectual functioning: Reason for Visit Reason for Visit: leg infection Brief History: As per the previous admitting attending and retrospective notes reviewed Oliver Humphreys is a 25 year old male w/ pmhx of DM2, morbid obesity, hyperlipidemia, and chronic cellulitis of LLE presents to ED w/ c/o continued infection to left leg. Patient to be admitted to hospital services for further medical management of sepsis, cellulitis. Patient resting in bed on room air, no family members noted to be at bedside during my evaluation. Patient states he started having fever and chills on 09/08 with associated signs/symptoms of nausea, and severe pain to left lower extremity that he reports is hot to the touch. Patient states he has not been able to eat in a few days due to nausea. Patient reports frequently forgetting to take his diabetic medications. Patient states he was following wound care previously for chronic left lower leg non-healing ulcer, last visit 06/11. Patient reports that the left lower leg ulcer was closed until 09/08. Patient is unable to recall specific event/injury that reopened wound, but states, I might have scratched it. Patient denies exposure to animal bites, immersion injury, changes in bowel/urinary habits, and recent medication changes. While in the ED a CBC, CMP were collected, reviewed, and results as follows: WBC: 12.7, Neut 10.4, ESR 88, lactic acid 4, CRP 346.7, plt 106, Na 127, Family Services Assistant 0.9, BUN 23, AST 35, ALT 52. CXR was taken and reviewed see imaging below. A EKG was obtained, reviewed, and results as followed: While in ED patient received the following medications: Sepsis bolus, IV vancomycin, IV Zosyn, IVP Zofran 4 mg, IVP morphine 4 mg, Tylenol 1000 mg po. Hospital Course Hospital Course During patient hospital stay he was managed as a case of acute on chronic left leg cellulitis with blistering and mild oozing. ID was consulted as well. And surgery was taken on board for any further intervention. He was kept on broad- spectrum antibiotics and blood cultures were sent along with MRSA swab which were negative. Wound culture was sent and grew out MSSA. His antibiotics were tailored accordingly. No intervention from surgery was documented. He continued to improve during his hospital stay in terms of his left leg cellulitis. Patient at the age of 25 having uncontrolled diabetes with his chronic left leg cellulitis raised concerns of some intellectual barriers and therefore psychiatrist was taken on board. There was also concern that the patient is having noncompliance to medications and treatment and a hidden intellectual barrier could be the reason with lack of understanding of his clinical condition. Based on psych evaluation there was an element of intellectual compromise and family was also taken on board to address the social issues for his care and also concern that him being independent may not be sufficient to take care of himself and his clinical condition which may put him at risk of future complications of diabetes, limb amputation, and fat or life- threatening complications. After documentation of patient requiring assistance in his life because of his lack of understanding/intellectual compromise situation, he was discharged to follow and seen by the industrial yard brake coupler at [facility] and to further work on his care postdischarge. ID also reviewed his case and he was discharged on appropriate antibiotics and to follow with ID after 2 weeks. Adequate medication reconciliation was done based on the patient clinical condition and appropriate referrals were also made. Patient condition has been discussed at length with the patient/family, I have independently reviewed the chart labs imaging/diagnostics/EKG. the goals of care and code status with the patient/family/NOK/legal outside industrial sales representative, and documented accordingly. The management has been done according to the current clinical condition with respect to patient goals of care and based on recommendations/guidelines. The patient/family has been informed about the current condition and further plan of care. Agreed with the plan of care and understood without any language barrier. Every effort was made to ensure accuracy of house steward/stewardess. Any obvious errors or omissions should be clarified with the author of the document. Physical Exam Narrative: General: Alert and oriented, lying on the bed comfortably without any distress, exam limited due to morbid obesity HEENT: Normocephalic, atraumatic, grossly unremarkable exam Cardio: normal rate rhythm, normal S1-S2 without any murmurs, limited exam Respiratory: normal vascular breathing on auscultation without any wheezes,limited exam GI: Abdomen soft, nontender, nondistended, normoactive bowel sounds present all 4 quadrants, Neuro: grossly unremarkable and no focal neurological deficit Behavior: Appropriate and cooperative Extremities: Adequate palpable pulses, left sided leg with chronic inflammation signs and edema and small blister ruptured on the back of heel and is oozing, blisters on the front of mid sweeney near the scab/ulcer are still oozing. Overall improvement in redness is seen and the skin blistering with oozing is signs of high likely clinical improvement with skin is shedding off and underlying healing skin is getting better.. Discharge Data Studies Completed and Pending Completed Studies During Hospitalization Category Date Time Status CT lower leg LT w con [id number] Stat Cat Scan 09/11/25 14:59 Completed XR chest 1V portable [id number] Stat Exams 09/11/25 13:02 Completed XR tibia fibula LT 2V [id number] Stat Exams 09/11/25 13:00 Completed Radiology Impressions Tibia/Fibula X-Ray 09/11/25 13:00 IMPRESSION: No acute osseous abnormality Chest X-Ray 09/11/25 13:02 IMPRESSION: No acute findings. Lower Extremity CT 09/11/25 14:59 IMPRESSION: Cellulitis of the distal calf with localized inflammatory changes/phlegmonous tissue along the anteromedial aspect of the distal calf without soft tissue abscess or osteomyelitis Laboratory Results WBC 7.05 10^3/uL (3.29-11.43) 09/18/25 04:44 RBC 4.07 10^6/uL (3.85-5.65) 09/18/25 04:44 Hgb 10.10 g/dL (11.27-16.99) L 09/18/25 04:44 Hct 32.1 % (37-53) L 09/18/25 04:44 MCV 78.9 fl (82-101) L 09/18/25 04:44 MCH 24.8 pg (27-33) L 09/18/25 04:44 MCHC 31.5 g/dL (30-55) 09/18/25 04:44 RDW 14.9 % (12.1-15.1) 09/18/25 04:44 Plt Count 192 10^3/cmm (157-399) 09/18/25 04:44 MPV 10.8 fL (7.4-10.4) H 09/18/25 04:44 Neut % (Auto) 55.4 % 09/18/25 04:44 Lymph % (Auto) 30.9 % 09/18/25 04:44 [place] % (Auto) 6.8 % 09/18/25 04:44 Eos % (Auto) 2.8 % 09/18/25 04:44 Baso % (Auto) 0.4 % 09/18/25 04:44 Neut # (Auto) 3.90 10^3/uL (1.8-7.7) 09/18/25 04:44 Lymph # (Auto) 2.2 10^3/uL (0.8-4.8) 09/18/25 04:44 [place] # (Auto) 0.5 10^3/uL (0.2-0.9) 09/18/25 04:44 Eos # (Auto) 0.2 10^3/uL (0.0-0.8) 09/18/25 04:44 Baso # (Auto) 0.0 10^3/uL (0.0-0.1) 09/18/25 04:44 Nucleated RBC % (auto) 0 % 09/18/25 04:44 Nucleated RBCs # 0.0 /100WBC 09/18/25 04:44 ESR 88 mm/hr (0-10) H 09/11/25 13:53 Specimen Type Arterial 09/11/25 15:22 Sample Site Radial, right 09/11/25 15:22 ABG pH 7.42 (7.35-7.45) 09/11/25 15:22 ABG pCO2 34.8 mmHg (35-45) L 09/11/25 15:22 ABG pO2 67.1 mmHg (80.0-100.0) L 09/11/25 15:22 ABG PO2/FiO2 Ratio 319 09/11/25 15:22 ABG HCO3 22.7 mmol/L (22-26) 09/11/25 15:22 ABG O2 Saturation 95.1 09/11/25 15:22 ABG Base Excess -1.3 mmol/L (-2.0-2.0) 09/11/25 15:22 Ramon Test Pos 09/11/25 15:22 A-a O2 Gradient 5.0 mmHg (5-10) 09/11/25 15:22 Hematocrit 36.1 % (42-52) L 09/11/25 15:22 Hgb O2 Saturation 93.0 % (95-100) L 09/11/25 15:22 Carboxyhemoglobin 1.4 %THgb (0.4-20.1) 09/11/25 15:22 Methemoglobin 0.8 % (0.4-1.5) 09/11/25 15:22 Total Hemoglobin 11.8 g/dL (14-18) L 09/11/25 15:22 Sodium 129.0 mmol/L (131-143) L 09/11/25 15:22 Potassium 3.5 mmol/L (3.5-5.0) 09/11/25 15:22 Glucose 389.0 mg/dL (70-115) H 09/11/25 15:22 Ionized Calcium 1.0 mmol/L (1.1-1.4) L 09/11/25 15:22 O2 Delivery Device Room air 09/11/25 15:22 FiO2 21.0 % 09/11/25 15:22 Change Control Manager ID glc 09/11/25 15:22 Sodium 137 mmol/L (136-145) 09/18/25 04:44 Potassium 3.7 mmol/L (3.5-5.1) 09/18/25 04:44 Chloride 104 mmol/L (98-107) 09/18/25 04:44 Carbon Dioxide 25 mmol/L (22-29) 09/18/25 04:44 Anion Gap 11.7 (5-19) 09/18/25 04:44 BUN 5 mg/dL (6-20) L 09/18/25 04:44 Creatinine 0.4 mg/dL (0.7-1.2) L 09/18/25 04:44 GFR Calculation 260.0 mL/min (90-130) H 09/18/25 04:44 Glucose 126 mg/dL (65-115) H 09/18/25 04:44 POC Glucose 120 mg/dL (70-110) H 09/18/25 11:32 Estimat Average Glucose 298 09/12/25 05:59 Hemoglobin A1c 12.0 % (4.0-6.0) H 09/12/25 05:59 Calculated Osmolality 283 mOsm/kg (285-295) L 09/18/25 04:44 Lactic Acid 1.3 mmol/L (0.5-2.2) 09/12/25 07:11 Lactic Acid (Sepsis) Cancelled 09/11/25 16:53 Calcium 8.3 mg/dL (8.5-10.5) L 09/18/25 04:44 Magnesium 1.8 mg/dL (1.7-2.3) 09/14/25 05:26 Total Bilirubin 0.5 mg/dL (0.15-1.2) 09/18/25 04:44 AST 19 U/L (0-40) 09/18/25 04:44 ALT 12 U/L (0-41) 09/18/25 04:44 Alkaline Phosphatase 63 U/L (40-130) 09/18/25 04:44 C-Reactive Protein 346.7 mg/L (0.0-4.9) H 09/11/25 13:53 Total Protein 6.9 g/dL (6.6-8.7) 09/18/25 04:44 Albumin 2.8 g/dL (3.5-5.2) L 09/18/25 04:44 Globulin 4.1 g/dL (1.3-4.6) 09/18/25 04:44 Triglycerides 181 mg/dL (0-150) H 09/12/25 05:59 Cholesterol 100 mg/dL (0-200) 09/12/25 05:59 LDL Cholesterol, Calc 47 mg/dL (50-129) L 09/12/25 05:59 HDL Cholesterol 17 mg/dL (60-100) L 09/12/25 05:59 LDL/HDL Ratio 2.76 RATIO (0.00-3.22) 09/12/25 05:59 Cholesterol/HDL Ratio 5.88 mg/dL (1.0-5.00) H 09/12/25 05:59 TSH 2.12 uIU/mL (0.27-4.20) 09/12/25 05:59 Nasal MRSA (PCR) Not detected (Negative) 09/12/25 17:15 Vancomycin Trough 18.2 ug/mL (10-15) H 09/14/25 17:03 Vitals Last Vital Signs Temp 97.5 F L 09/18/25 11:31 Pulse 76 09/18/25 11:31 Resp 14 09/18/25 11:31 BP 110/71 09/18/25 11:31 Pulse Ox 99 09/18/25 11:31 O2 Del Method Room Air 09/18/25 11:31 Discharge Plan Discharge Patient Disposition: Home Condition: Stable Prescriptions: New mupirocin [Centany] 2 % ointment 1 applic topical BID 5 Days Qty: 22 5RF Rx Instructions: apply to both nares with qtip, both armpits and groin folds x 5 days, repeat monthly chlorhexidine gluconate [Antiseptic Skin Clnsr(chlorhe)] 4 % liquid 1 applic topical DAILY 5 Days Qty: 118 5RF Rx Instructions: bathe neck down with hibiclens soap 5 days a month, repeat monthly nystatin 100,000 unit/mL Suspension 500,000 unit PO QID Qty: 3000 0RF amoxicillin-pot clavulanate [Augmentin XR] 1,000-62.5 mg tablet extended release 12 hr 1 tab PO Q12H 14 Days Qty: 28 0RF levofloxacin 750 mg tablet 750 mg PO DAILY 14 Days Qty: 14 0RF insulin glargine [Lantus U-100 Insulin] 100 unit/mL Solution 40 unit SUBCUT QAM 90 Days Qty: 36 0RF insulin lispro [Humalog U-100 Insulin] 100 unit/mL Solution 0 unit SUBCUT WM&BEDTIME 90 Days Qty: 50 0RF Continued (DME) reli glucometer and strips See Rx Instructions .Route .MEDSUPPLY Qty: 1 0RF Rx Instructions: As directed check glucose level at different times daily (DME) FreeStyle Sonia 3 Woodson Misc See Rx Instructions .Route Qty: 1 0RF Rx Instructions: As directed (DME) FreeStyle Sonia 3 Sensor Device See Rx Instructions .Route Qty: 2 1RF Rx Instructions: As directed Discontinued insulin glargine [Lantus Solostar U-100 Insulin] 100 unit/mL (3 mL) insulin pen 40 unit SUBCUT QAM Qty: 15 1RF cefadroxil 1 gram tablet 1,000 mg PO BID PRN (Reason: cellulitis) 5 Days Qty: 10 5RF Rx Instructions: take at onset of cellulitis Mother Baby Rn OK for DC: Infectious Disease and Surgery Discharge Order = DC NOW: Discharge Order (Routine); Ordered 09/18/25 Ordered By: Reshma Small Referrals: [facility] [Outside] Referral Note: Walk In 7:30- 4:30 M-F at [facility] for intake assessment. Ask to have a referral submitted to [facility]. Isaias Buckley MD [Physician, General Surgery] - 2 weeks Referral Note: chronic left leg cellulitis post discharge follow up Karina Feng DO [Emergency Department, Emergency Medicine] - 1-3 days Referral Note: chronic left leg cellulitis Francheska Miles MD [Hospitalist, Hospitalist] - 2 weeks Referral Note: post discharge follow up left leg chronic cellulitis Elias Be MD [Physician, Endocrinology] - 2 weeks Referral Note: uncontrolled DM Berince Saavedra MD [Physician, Family Practice] - 09/20/25 10:30 am Referral Note: [facility] to establish Primary Care and Hospital Follow up. Discharge Diet: Diabetic and Low Fat Discharge Activity: Resume usual activity Patient Instructions: Type 1 Diabetes, Amoxicillin/Clavulanate Potassium (By mouth), Levofloxacin (By mouth) (Levaquin, Levaquin Leva-marsha), Insulin Glargine (By injection), Insulin Lispro (By injection), Opioid Safety, Pain Management, Patient Portal & Walker Instructions Discharge Attestations Time Spent in Discharge Care*: greater than 30 min Specific Discharge Activities: educating patient, educating and/or supporting family/caregiver, discussing with pcp/other providers, discussing with foster care case manager/social workers/dc planners, documenting/other paperwork and evaluating patient/reviewing data Status at Discharge: Cognitive status at discharge: cognitively intact , Behavioral status at discharge: cooperative , Functional status at discharge: other assisted ambulation , Overall status at discharge: patient is progressing back to baseline Quality Metrics Clinical Quality Measures [ No reported AMI, CVA or VTE this stay] Coding Level of Care Code 25815 Diagnoses Type 2 diabetes mellitus with other circulatory complication, with long-term current use of insulin E11.59; Z79.4 Diabetes mellitus rodent exterminator insulin use: with residential use Diabetes mellitus complication status: with circulatory complication Diabetes mellitus complication detail: with other circulatory complications Morbid obesity with BMI of 45.0-49.9, adult E66.01; Z68.42 Anxiety F41.9 Borderline intellectual functioning R41.83
== END 2025-09-18 12:36 | disposition home or self-care (01) | DRG 872 ==
LOC: ER 14:38 → ICU 15:30 → MEDSURG 09-13 02:15
PROVIDERS: Clinical Nurse Specialist Acute Care; Registered Nurse; Admitting Provider Family Medicine; Emergency Provider Physician Assistant; PCP Family Medicine Adult Medicine; Visit Provider Student in an Organized Health Care Education/Training Program
DX: A41.9 Sepsis, unspecified organism (principal); L03.116 Cellulitis of left lower limb; B37.0 Candidal stomatitis; Z68.41 Body mass index [BMI] 40.0-44.9, adult; L97.222 Non-pressure chronic ulcer of left calf with fat layer exposed; T38.3X6A Underdosing of insulin and oral hypoglycemic [antidiabetic] drugs, initial encounter; Z91.148 Patient's other noncompliance with medication regimen for other reason; Y92.9 Unspecified place or not applicable; Z87.891 Personal history of nicotine dependence; Z83.3 Family history of diabetes mellitus; E78.2 Mixed hyperlipidemia; F79 Unspecified intellectual disabilities; E66.01 Morbid (severe) obesity due to excess calories; E88.810 Metabolic syndrome; L73.9 Follicular disorder, unspecified; E11.59 Type 2 diabetes mellitus with other circulatory complications; S90.822A Blister (nonthermal), left foot, initial encounter; X58.XXXA Exposure to other specified factors, initial encounter; E87.6 Hypokalemia; Z79.4 Long term (current) use of insulin; F41.9 Anxiety disorder, unspecified; B95.61 Methicillin susceptible Staphylococcus aureus infection as the cause of diseases classified elsewhere; E11.622 Type 2 diabetes mellitus with other skin ulcer; L89.210 Pressure ulcer of right hip, unstageable
CPT/HCPCS: 36415; 36416; 36600; 71045; 73590; 73701; 80051; 80053; 80061; 80202; 82330; 82805; 82962; 83036; 83605; 83735; 84443; 85025; 85651; 86140; 87040; 87070; 87075; 87077; 87186; 87205; 93005; 96365; 96367; 96372; 96375; 97116; 97161; 97165; 97530; 97535; 99285; J1650; J1815; J2270; J2405; J2470; J2543; J3372; J3373; J3475; J7030; J7050; J9999

== ENCOUNTER → 2025-09-28 09:50 | Outpatient (BNVA) | payer SELFPAY | DX: E11.59 Type 2 diabetes mellitus with other circulatory complications (principal); Z79.4 Long term (current) use of insulin | CPT/HCPCS: 80053; 85025 ==